=== PATIENT | female | born 1950 | race Caucasian/White ===

== ENCOUNTER 2025-01-27 17:23 | Emergency (ER) | payer MEDICARE, SELFPAY ==
--- OUTSIDE RECORDS SUMMARY | 2024-11-18 08:00 | XMS_ITS ---
Author Organization [facility] Address [address] [facility] [address] [place] [address] Care Team Providers Care Immunohematologist Name Role Phone CASSIA LENZ AUSTIN Primary Care Provider Unavailab anastasia Lio Zavaleta Unavailable [phone] Medications Medication SIG (Take, Route, Frequency, Duration) Notes Start Date End Date Status Valsartan 40 MG 1 tablet Orally once daily Active Albuterol Sulfate HFA 108 (90 Base) MCG/ACT 1 puff as needed Inhalation every 4 hrs Active amLODIPine Besylate 10 MG 1 tablet Orall y Once a day Active Sertraline HCl 100 MG 1 tablet Orally On ce a day Active Primidone 50 MG 1 tablet Orally thre e times a day Active Fluticasone Propionate 50 MCG/ACT 1 spray in each nostril Nasally Twice a day Active Metoprolol Tartrate 25 MG 0.5 tablet wit h food Orally Twice a day Active Vlgveopslgl-Abwytnaqe-Wvjpl t 200-62.5-25 MCG/ACT 1 puff Inhalation Once a day Active Ondansetron 4 MG 1 tablet on the tongue and allow to dissolve Orally Once a day As needed Active Omeprazole 20 MG 1 capsule 1/2 to 1 hour before morning meal Orally Once a day As needed Active Famotidine 40 MG 1 tablet Orally Once a day Active buPROPion HCl ER (SR) 150 MG 1 tablet in the morning Orally twice daily Active Atorvastatin Calcium 40 MG 1 tablet Oral ly Once a day Active Betamethasone Valerate 0.1 % 1 application Externally twice daily Active Aspirin 81 81 MG 1 tablet Orally Once a day Active Problems Problem Type SNOMED Code ICD Code Onset Dates Problem Status W/U Status Risk Notes Problem Chronic kidney disease stage 3B (disorder) (980950806) Chronic kidney disease, stage 3b (N18.32) Active confirmed Vital Signs Temperature 97.6 degrees Fahrenheit 11/19/19 25 Blood pressure systolic 137 mm Hg 11/19/19 25 Blood pressure diastolic 67 mm Hg 025 Heart Rate 63 /min 11/18/2024 Respiratory Rate 20 /min 11/18/2024 Height 64.5 in 11/18/2024 Weight 231.1 lbs 11/18/2024 BMI 39.05 kg/m2 11/18/2024 Oximetry 95 % 11/18/2024 Height-cm 163.83 cm 11/18/2024 Weight-kg 104.83 kg 11/18/2024 Encounters Encounter Location Date Provider Diagnosis [facility] [address] [place] [address] 11/18/2024 Lio Zavaleta Chronic kidney disease, stage 3b N18.32 Assessments Encounter Date Diagnosis (ICD Code) Assessment Notes Treatment Notes Treatment Clinical Notes Section Notes 11/18/2024 Chronic kidney disease, stage 3b (ICD-10 - N18.32) Plan Of Treatment Pending Test Test Name Order Date Hemoglobin 11/18/2024 Microalb/Creat Ratio, Randm Ur Renal Panel (10) 11/18/2024 Urinalysis 11/18/2024 Next Appt Details Follow Up: 6M, Reason: Provider Name:Lio godinez, 09/22/2025 12:00:00 PM, [address] [address], [place], [address], Progress Notes * LUIS HEARD BDOB:[birth year] (74 yo F)Acc No.[id number]:11/18/2024 progress note Patient: LUIS DUNBAR Provider: Era Zavaleta MD :1950 A ge:74 Y S ex:Female Date:11/18/2024 Address:[address] [place], [place] [id number] Pcp:AUSTIN ANTONY APRN Subjective: * Chief Complaints: * * Medical History: * Medications: T aking Albuterol Sulfate HFA 108 (90 Base) MCG/ACT Aerosol Solution 1 puff as needed Inhalation every 4 hrs , Taking amLODIPine Besylate 10 MG Tablet 1 tablet Orally Once a day , Taking Aspirin 81 81 MG Tablet Delayed Release 1 tablet Orally Once a day , Taking Atorvastatin Calcium 40 MG Tablet 1 tablet Orally Once a day , Taking Betamethasone Valerate 0.1 % Ointment 1 application Externally twice daily , Taking buPROPion HCl ER (SR) 150 MG Tablet Extended Release 12 Hour 1 tablet in the morning Orally twice daily , Taking Famotidine 40 MG Tablet 1 tablet Orally Once a day , Taking Fluticasone Propionate 50 MCG/ACT Suspension 1 spray in each nostril Nasally Twice a day , Taking Ryhkwpewasl-Zgfxbakqf-Ovoyrn 200-62.5-25 MCG/ACT Aerosol Powder Breath Activated 1 puff Inhalation Once a day , Taking Metoprolol Tartrate 25 MG Tablet 0.5 tablet with food Orally Twice a day , Taking Omeprazole 20 MG Capsule Delayed Release 1 capsule 1/2 to 1 hour before morning meal Orally Once a day As needed, Taking Ondansetron 4 MG Tablet Disintegrating 1 tablet on the tongue and allow to dissolve Orally Once a day As needed, Taking Primidone 50 MG Tablet 1 tablet Orally three times a day , Taking Sertraline HCl 100 MG Tablet 1 tablet Orally Once a day , Taking Valsartan 40 MG Tablet 1 tablet Orally once daily Objective: * Vitals: B P:137/67mm Hg, HR:63/min, RR:20/min, Temp:97.6F, Oxygen sat %:95%, Wt:231.1lbs, Wt-k.83 kg, Ht: 64.5 in, Ht-cm: 163.83 cm, BMI:39.05Index, Body Surface Area: 2.18. Assessment: * Assessment: 1. C hronic kidney disease, stage 3b - N18.32 Plan: * Treatment: * Follow Up: 6 M * Billing Information: * Visit Code: * Procedure Codes: * Electronic signature of Elise Zavaleta M.D. on 01/27/2025 at 06:23 PM EDT Sign off status: Pending * Provider: Era Zavaleta MD Date: 0 11/18/2024 Generated for Carmelo olson/Gissell/Magdalena on: 1 06:23 PM EDT
[2025-01-27] VITALS (19 sets, daily range): BP systolic 133–184; BP diastolic 54–79; PULSE 57–95; RESP 18; TEMP 36.6–37.2; O2SAT 96–100; BMI 39.1
--- NOTE | 2025-01-27 17:46 | [facility].EDGENADL ---
Discharge Plan Disposition Patient Disposition: Home, Self-Care Condition: Good Prescriptions Prescriptions: New hydrocodone-acetaminophen 5-325 mg tablet 1 tab PO Q8H PRN (Reason: pain (scale score 7-10)) Qty: 9 0RF ondansetron 4 mg tablet,disintegrating 4 mg PO Q6H PRN (Reason: nausea and vomiting) Qty: 10 0RF No Action albuterol sulfate 2.5 mg /3 mL (0.083 %) Solution For Nebulization 2.5 mg INHALATION QID acetaminophen 500 mg Tablet 500 mg PO Q6H PRN (Reason: Shortness Of Breath Or Wheezing) albuterol sulfate 200 mcg Capsule, W/Inhalation Device 90 mcg INHALATION DAILY atorvastatin 40 mg Tablet 40 mg PO DAILY betamethasone valerate 0.1 % Ointment 1 applic TOPICAL BID primidone 50 mg Tablet 50 mg PO HS bupropion HCl 150 mg Tablet Sustained-Release 12 Hr 150 mg PO BID ciprofloxacin 500 mg/5 mL Suspension,Microcapsule Recon 500 mg PO BID famotidine 40 mg Tablet 40 mg PO BID prednisone 20 mg Tablet 20 mg PO DAILY sertraline 100 mg Tablet 100 mg PO DAILY amlodipine 10 mg Tablet 10 mg PO DAILY omeprazole 20 mg Capsule,Delayed Release(Dr/Ec) 20 mg PO BID colestipol 1 gram Tablet 1 g PO BID valsartan 40 mg Tablet 40 mg PO BID metoprolol tartrate 25 mg Tablet 25 mg PO BID nitrofurantoin monohyd/m-cryst 100 mg Capsule 100 mg PO BID budesonide-formoterol 160-4.5 mcg/actuation Hfa Aerosol Inhaler 4.5 inh INHALATION DAILY cholecalciferol (vitamin D3) [Vitamin D3] 50 mcg (2,000 unit) Capsule 50 mcg PO DAILY Trelegy Ellipta 200-62.5-25 mcg Blister With Device 1 inh INHALATION DAILY Referrals Follow up/Referrals: Teddy Larsen DO [Staff Physician, Orthopedics] - See instructions Provider,Referral, MD [Primary Care Provider, Medical] - See instructions Activity Restrictions/Add. Instructions Additional Instructions/Restrictions: Please use your pain medication as needed for symptomatic relief. Please use your antinausea medicine as needed for symptomatic relief. Please follow-up with your orthopedic surgeon in the upcoming days/weeks. Please remain in the sling times until orthopedic follow-up, with the exception of showering/bathing. We will call you with the results of your elbow x-ray if actionable. No news is good news. Clinical Impressions Clinical Impression: Fall, Fracture of left clavicle Instructions Patient Instructions: DI for Clavicle Fracture in Adults, How to Prevent Falls Print Language Print Language: Czech Discharge ED Provider: Faraz Bridges General Adult HPI <FRANSISCO Bocanegra - Last Filed: 01/27/25 21:10> General Chief complaint: Fall Stated complaint: AO 01-27 Shoulder and left arm, fell Time Seen by Provider: 01/27/25 17:32 Mode of Arrival: Ambulatory Source of Information: Patient Description of Symptoms (Recalled from ER Triage Doc. by RN): Pt fell today @1500. C/o left arm/shoulder and rib pain. She has an existing radial head break in her left arm from previous fall around 5 weeks ago. History of Present Illness HPI narrative: 74-year-old female presents to the emergency department for a mechanical fall that occurred around 3 PM, patient states she was going to put her shoes on when she got her shoe stuck in her pant leg , caused her to fall on her left side, on outstretched arm, complains of pain in her shoulder, forearm/elbow region, does have ongoing known distal radius fracture that orthopedics has been following for last several weeks, patient admits to striking head, no LOC no presyncopal or syncopal event, no anticoagulant use, no fever no chills no overt chest pain or shortness of breath, does have left-sided chest wall pain, denies any abdominal pain nausea vomiting constipation diarrhea no urinary type symptomatology, patient is a former smoker, denies any alcohol or drug use, no neck pain, no mid back pain or lower back pain, no radicular type symptomatology, no numbness or tingling, no urinary bladder or bowel dysfunction, other past medical history consistent with hyperlipidemia, hypertension, GERD, MDD/LOI, previous TIA/CVA. Initial triage vitals are unremarkable. Of note, patient's family ember at the bedside states that the patient was on the floor/found down for around 30 minutes to an hour. Please note that above description of symptoms, in this electronic medical record under categorization of recalled from ER triage doctor by RN are reflective of an initial nursing assessment, however, is not reflective of my full history and physical exam that was personally taken and clarified. Consequentially, this preceding description of symptoms, which may include the patient's categorized chief complaint in the EMR, do not reflect my personal clinical impression, and the ultimate description of history of present illness and patient stated complaints should be deferred to this section of the note. Unless stated otherwise or congruent with this section of the note, additional signs, symptoms, or incongruence should be interpreted as inaccurate with my clinical impression. Onset (ago): hour(s) Related Data Home Medications ?Medication ?Instructions ?Recorded ?Confirmed acetaminophen 500 mg tablet 500 mg PO Q6H PRN Shortness Of 01/27/25 01/27/25 Breath Or Wheezing albuterol sulfate 2.5 mg/3 mL 2.5 mg inhalation QID 01/27/25 01/27/25 (0.083 %) solution for nebulization albuterol sulfate 200 mcg capsule 90 mcg inhalation DAILY 01/27/25 01/27/25 with inhalation device amlodipine 10 mg tablet 10 mg PO DAILY 01/27/25 01/27/25 atorvastatin 40 mg tablet 40 mg PO DAILY 01/27/25 01/27/25 betamethasone valerate 0.1 % 1 applic topical BID 01/27/25 01/27/25 topical ointment budesonide-formoterol HFA 160 4.5 inh inhalation DAILY 01/27/25 01/27/25 mcg-4.5 mcg/actuation aerosol inhaler bupropion HCl 150 mg tablet,12 hr 150 mg PO BID 01/27/25 01/27/25 sustained-release cholecalciferol (vitamin D3) 50 50 mcg PO DAILY 01/27/25 01/27/25 mcg (2,000 unit) capsule (Vitamin D3) ciprofloxacin 500 mg/5 mL oral 500 mg PO BID 01/27/25 01/27/25 suspension colestipol 1 gram tablet 1 g PO BID 01/27/25 01/27/25 famotidine 40 mg tablet 40 mg PO BID 01/27/25 01/27/25 fluticasone fur. 200 mcg-umeclid 1 inh inhalation DAILY 01/27/25 01/27/25 62.5 mcg-vilant 25 mcg inhalat.powder (Trelegy Ellipta) metoprolol tartrate 25 mg tablet 25 mg PO BID 01/27/25 01/27/25 nitrofurantoin 100 mg PO BID 01/27/25 01/27/25 monohydrate/macrocrystals 100 mg capsule omeprazole 20 mg capsule,delayed 20 mg PO BID 01/27/25 01/27/25 release prednisone 20 mg tablet 20 mg PO DAILY 01/27/25 01/27/25 primidone 50 mg tablet 50 mg PO HS 01/27/25 01/27/25 sertraline 100 mg tablet 100 mg PO DAILY 01/27/25 01/27/25 valsartan 40 mg tablet 40 mg PO BID 01/27/25 01/27/25 Previous Rx's ?Medication ?Instructions ?Recorded hydrocodone 5 mg-acetaminophen 325 1 tab PO Q8H PRN pain (scale score 01/27/25 mg tablet 7-10) #9 tabs ondansetron 4 mg disintegrating 4 mg PO Q6H PRN nausea and 01/27/25 tablet vomiting #10 tabs Allergies Allergy/AdvReac Type Severity Reaction Status Date / Time No Known Allergies Allergy Verified 01/27/25 17:43 [facility] <FRANSISCO Bocanegra - Last Filed: 01/27/25 21:10> [facility] Disclaimer: The information contained in this section may have been updated after the patient was seen, as this information can be updated by other users. Medical History (Updated 01/27/25 @ 21:05 by FRANSISCO Bocanegra) COPD (chronic obstructive pulmonary disease) Asthma History of stroke Hypertension Social History (Updated 01/27/25 @ 21:10 by FRANSISCO Bocanegra) Smoking Status: Former smoker alcohol intake: never current occupational status: other Travel in the last 8 weeks?: None Have you lived/traveled outside [place] in past 30 days?: No Contact w/someone who lives/traveled outside [place] past 30 days?: No Exposure to someone with infectious disease in past 14 days?: No Do you have a fever (greater than 100.4 F or 38 C)?: No Have you tested positive for COVID-19?: No Exposed to someone with COVID-19 in past 14 days?: No Do you have a sore throat?: No Do you have a cough?: No Do you have any weakness?: No Do you have any diarrhea?: No Are you experiencing any unusual bleeding?: No Do you have any muscle aches/pain?: No Do you have any abdominal pain?: No Are you experiencing loss of taste or smell?: No <FRANSISCO Bocanegra - Last Filed: 01/27/25 21:10> ROS Obtained: Yes All systems reviewed & no additional complaints except as documented Physical Exam <FRANSISCO Bocanegra - Last Filed: 01/27/25 21:10> General General appearance: alert and in no apparent distress Head Head exam: atraumatic and normocephalic Eye Eye exam: Present PERRL and EOMI ENT ENT exam: Present mucous membranes moist Neck Neck exam: Present normal inspection; Absent tenderness Chest Chest inspection: Present normal inspection, symmetric chest wall rise, tenderness and other (Mild chest wall tenderness over the left chest wall) Respiratory Respiratory exam: Present normal lung sounds bilaterally; Absent respiratory distress, wheezes or stridor Cardiovascular Cardiovascular exam: Present regular rate and normal rhythm Abdominal Exam Abdominal exam: Present soft; Absent tenderness, guarding, rebound or rigidity Extremities Exam Extremities exam: Present normal inspection, tenderness and other (Pain to palpation limited range of motion to the left shoulder region, no obvious open fracture or dislocation, otherwise neurovasc intact, pain over the humeral head region, elbow region as well as forearm region,); Absent full ROM Neurological Exam Neurological exam: Present alert and oriented X3 Psychiatric Psychiatric exam: Present normal affect Skin Skin exam: Present warm and dry Medical Decision Making <FRANSISCO Bocanegra - Last Filed: 01/27/25 21:10> Medical Records Medical records reviewed: Yes I reviewed the patient's medical records. Screening: Per USPSTF and CDC recommendations, given the prevalence of disease in our region, it is our hospital?s policy to screen for HIV and viral Hepatitis for all patients aged 18 and over and those with ongoing risk factors. Dada Inquiry Pt receiving controlled substance: No Dada was queried for this patient: No Vital Signs: 01/27/25 17:38 01/27/25 17:48 01/27/25 18:01 Temperature 98.9 F Temperature Source Temporal Artery Scan Pulse Rate 62 57 L Pulse Rate [Right] 65 Respiratory Rate 18 Blood Pressure 175/79 H 166/58 H Blood Pressure [Right Arm] 184/71 H Blood Pressure Mean Blood Pressure Mean [Right Arm] 108 Blood Pressure Source [Right Arm] Automatic Cuff Blood Pressure Position [Right Arm] Sitting 02 Sat by Pulse Oximetry 100 96 98 Oxygen Delivery Method Room Air Room Air Room Air 01/27/25 18:42 01/27/25 18:44 01/27/25 19:04 Temperature Temperature Source Pulse Rate 61 57 L Pulse Rate [Right] Respiratory Rate Blood Pressure 157/79 H Blood Pressure [Right Arm] Blood Pressure Mean Blood Pressure Mean [Right Arm] Blood Pressure Source [Right Arm] Blood Pressure Position [Right Arm] 02 Sat by Pulse Oximetry 98 99 97 Oxygen Delivery Method Room Air Room Air 01/27/25 19:07 01/27/25 19:07 01/27/25 19:15 Temperature Temperature Source Pulse Rate 61 59 L Pulse Rate [Right] Respiratory Rate Blood Pressure 161/68 H Blood Pressure [Right Arm] Blood Pressure Mean 77 Blood Pressure Mean [Right Arm] Blood Pressure Source [Right Arm] Blood Pressure Position [Right Arm] 02 Sat by Pulse Oximetry 98 98 Oxygen Delivery Method 01/27/25 19:30 01/27/25 19:31 01/27/25 19:31 Temperature Temperature Source Pulse Rate 57 L 58 L Pulse Rate [Right] Respiratory Rate Blood Pressure 142/59 H Blood Pressure [Right Arm] Blood Pressure Mean 86 Blood Pressure Mean [Right Arm] Blood Pressure Source [Right Arm] Blood Pressure Position [Right Arm] 02 Sat by Pulse Oximetry 97 97 Oxygen Delivery Method 01/27/25 19:45 01/27/25 20:00 01/27/25 20:01 Temperature Temperature Source Pulse Rate 59 L 64 Pulse Rate [Right] Respiratory Rate Blood Pressure 158/68 H Blood Pressure [Right Arm] Blood Pressure Mean 80 Blood Pressure Mean [Right Arm] Blood Pressure Source [Right Arm] Blood Pressure Position [Right Arm] 02 Sat by Pulse Oximetry 98 97 Oxygen Delivery Method 01/27/25 20:01 01/27/25 20:15 01/27/25 20:30 Temperature Temperature Source Pulse Rate 63 60 95 H Pulse Rate [Right] Respiratory Rate Blood Pressure Blood Pressure [Right Arm] Blood Pressure Mean Blood Pressure Mean [Right Arm] Blood Pressure Source [Right Arm] Blood Pressure Position [Right Arm] 02 Sat by Pulse Oximetry 98 97 Oxygen Delivery Method 01/27/25 20:31 Temperature Temperature Source Pulse Rate Pulse Rate [Right] Respiratory Rate Blood Pressure 146/66 H Blood Pressure [Right Arm] Blood Pressure Mean 92 Blood Pressure Mean [Right Arm] Blood Pressure Source [Right Arm] Blood Pressure Position [Right Arm] 02 Sat by Pulse Oximetry Oxygen Delivery Method Lab Data Lab results reviewed: Yes I reviewed the patient's lab results. Lab Results 01/27/25 18:40: WBC 5.0, RBC 3.41 L, Hgb 10.6 L, Hct 33.1 L, MCV 97.1, MCH 31.1, MCHC 32.0, RDW 13.3, Plt Count 132 L, MPV 10.4, Neut % (Auto) 73.0, Lymph % (Auto) 13.4, Baker % (Auto) 9.6 H, Eos % (Auto) 3.0, Baso % (Auto) 0.4, Neut # (Auto) 3.6, Lymph # (Auto) 0.7, Baker # (Auto) 0.5, Eos # (Auto) 0.2, Baso # (Auto) 0.0, Sodium 140, Potassium 4.6, Chloride 106, Carbon Dioxide 26, Anion Gap 12.6, BUN 23 H, Creatinine 1.40 H, Estimated Creat Clear 58, Estimated GFR 37 L, Est GFR ( Amer) 44 L, Glucose 112 H, Calcium 8.8, Total Bilirubin 0.6, AST 25, ALT 17, Alkaline Phosphatase 125, Total Creatine Kinase 53, Total Protein 6.7, Albumin 4.1, Globulin 2.6, Albumin/Globulin Ratio 1.6 01/27/25 18:40 01/27/25 18:40 Orders (Tests/Meds): ED MEDICATIONS Discontinued Medications Generic Name Dose Route Start Last Admin Trade Name Rajinderq PRN Reason Stop Dose Admin Acetaminophen 1,000 mg 01/27/25 18:02 01/27/25 18:46 Acetaminophen 1,000mg/100ml Vial IV 01/27/25 18:03 Not Given ONCE ONE Hydrocodone Bitart/Acetaminophen 1 tab 01/27/25 21:02 01/27/25 21:09 Apap/Hydrocodone 325mg/7.5mg Tab PO 01/27/25 21:03 1 tab ONCE ONE Administration Morphine Sulfate 2 mg 01/27/25 19:09 01/27/25 19:17 Morphine 2mg/Ml Syringe IV 01/27/25 19:10 2 mg ONCE ONE Administration Ondansetron HCl 4 mg 01/27/25 19:02 01/27/25 19:16 Ondansetron 4mg/2ml Vial IV 01/27/25 19:03 4 mg ONCE ONE Administration ORDERS Category Date Time Status CT cervical spine wo con Stat Cat Scan 01/27/25 17:[address] chest wo con Stat Cat Scan 01/27/25 17:[address] head/brain wo con Stat Cat Scan 01/27/25 17:58 Completed XR chest portable Stat Exams 01/27/25 17:55 Completed XR elbow LT 2V Stat Exams 01/27/25 18:00 Taken XR forearm LT 2V Stat Exams 01/27/25 18:00 Completed XR humerus LT Stat Exams 01/27/25 17:59 Completed XR shoulder LT min 2V Stat Exams 01/27/25 17:59 Completed XR wrist LT min 3V Stat Exams 01/27/25 18:01 Completed CK [Creatine Kinase] Stat Lab 01/27/25 18:40 Completed Complete Blood Count Auto Diff Stat Lab 01/27/25 18:40 Completed Comprehensive Metabolic Panel Stat Lab 01/27/25 18:40 Completed Medical Decision Narrative: 74-year-old female presents to the emergency department for mechanical fall, complaint of left-sided upper extremity pain and left-sided chest wall pain, differential diagnose include but not limited to humeral head fracture, anterior shoulder dislocation, shoulder impingement syndrome, elbow fracture, elbow sprain/strain, other arm sprain/strain, acute SDH, traumatic SAH, cervicalgia, cervical spine fracture, cardiac arrhythmia, electrolyte disturbance, forearm fracture, arm sprain/strain among others. I discussed this patient's case with attending Dr. Bridges Will obtain basic laboratory studies, creatinine kinase level, EKG, CT cervical spine without contrast, CT chest without contrast, CT head without contrast, chest x-ray, elbow x-ray, forearm x-ray humerus x-ray shoulder x-ray and wrist x-ray on the left, will give IV acetaminophen at 1000 mg. Attempted to give 1 g IV Tylenol, patient notified nursing staff that she did take 1 g of p.o. Tylenol prior to arrival, will hold off at this time. CBC is notable for erythrocyte opinion at 3.4, hemoglobin is 10.6 hematocrit 33.1 thrombocytopenia at 132, unsure of chronicity. Patient complaining of some pain, will give 2 mg IV morphine l and 4 mg IV Zofran to start as patient tells me that she gets quite sick with narcotics . CMP is notable for elevated BUN at 23 elevated creatinine 1.4, CK level within normal limits, otherwise unremarkable I reviewed the patient's left shoulder x-ray along the corresponding radiologic report, there is an acute nondisplaced fracture involving the distal clavicle, will place patient in a sling. I reviewed the patient's left humerus x-ray along the corresponding radiologic report, acute fracture of the distal clavicle more optimally described on the associated shoulder radiograph from the same day time please reference report for additional information. I reviewed the patient's left forearm x-ray along the corresponding radiologic report, no acute posttraumatic osseous injury. I reviewed the patient's CT head without contrast, CT cervical with and without contrast on the corresponding radiologic reports, there is no acute osseous findings in the patient's C-spine, no acute intracranial findings on CT head without contrast. I reviewed the patient's chest x-ray along the corresponding radiologic report, negative for acute cardiopulmonary abnormality, acute nondisplaced fracture of the distal left clavicle I reviewed the patient's left wrist x-ray along the corresponding radiologic report, no acute posttraumatic osseous injury. I reviewed the patient's CT chest without contrast on the corresponding radiologic report, acute mildly comminuted displaced fracture of the distal left clavicle as described minor concavity to the T10 vertebral body which is age-indeterminate correlate clinically, cannot entirely exclude acute process, evidence of prior granulomatous disease minor apical emphysema. I discussed all results with the patient family bedside, will give patient 7.5 mg p.o. Bowie for symptomatic relief here in the emergency department prior to discharge. Discussed that elbow radiograph report from radiology is not yet fully completed, I along with the attending physician reviewed the patient's plain film elbow x-ray, showed no acute pathology, patient would like to be discharged home to self-care, shared decision making was utilized, we will not wait on the full radiology report will call patient with any actionable results. Will send patient home with p.o. analgesia per attending physician. Patient was given strict ED return precautions and will follow-up with orthopedic physician in the upcoming days. Patient family once again voiced understanding and are in agreement with the current treatment plan/discharge plan. <Faraz Bridges MD - Last Filed: 01/27/25 21:27> Vital Signs: 01/27/25 17:38 01/27/25 17:48 01/27/25 18:01 Temperature 98.9 F Temperature Source Temporal Artery Scan Pulse Rate 62 57 L Pulse Rate [Right] 65 Respiratory Rate 18 Blood Pressure 175/79 H 166/58 H Blood Pressure [Right Arm] 184/71 H Blood Pressure Mean Blood Pressure Mean [Right Arm] 108 Blood Pressure Source [Right Arm] Automatic Cuff Blood Pressure Position [Right Arm] Sitting 02 Sat by Pulse Oximetry 100 96 98 Oxygen Delivery Method Room Air Room Air Room Air 01/27/25 18:42 01/27/25 18:44 01/27/25 19:04 Temperature Temperature Source Pulse Rate 61 57 L Pulse Rate [Right] Respiratory Rate Blood Pressure 157/79 H Blood Pressure [Right Arm] Blood Pressure Mean Blood Pressure Mean [Right Arm] Blood Pressure Source [Right Arm] Blood Pressure Position [Right Arm] 02 Sat by Pulse Oximetry 98 99 97 Oxygen Delivery Method Room Air Room Air 01/27/25 19:07 01/27/25 19:07 01/27/25 19:15 Temperature Temperature Source Pulse Rate 61 59 L Pulse Rate [Right] Respiratory Rate Blood Pressure 161/68 H Blood Pressure [Right Arm] Blood Pressure Mean 77 Blood Pressure Mean [Right Arm] Blood Pressure Source [Right Arm] Blood Pressure Position [Right Arm] 02 Sat by Pulse Oximetry 98 98 Oxygen Delivery Method 01/27/25 19:30 01/27/25 19:31 01/27/25 19:31 Temperature Temperature Source Pulse Rate 57 L 58 L Pulse Rate [Right] Respiratory Rate Blood Pressure 142/59 H Blood Pressure [Right Arm] Blood Pressure Mean 86 Blood Pressure Mean [Right Arm] Blood Pressure Source [Right Arm] Blood Pressure Position [Right Arm] 02 Sat by Pulse Oximetry 97 97 Oxygen Delivery Method 01/27/25 19:45 01/27/25 20:00 01/27/25 20:01 Temperature Temperature Source Pulse Rate 59 L 64 Pulse Rate [Right] Respiratory Rate Blood Pressure 158/68 H Blood Pressure [Right Arm] Blood Pressure Mean 80 Blood Pressure Mean [Right Arm] Blood Pressure Source [Right Arm] Blood Pressure Position [Right Arm] 02 Sat by Pulse Oximetry 98 97 Oxygen Delivery Method 01/27/25 20:01 01/27/25 20:15 01/27/25 20:30 Temperature Temperature Source Pulse Rate 63 60 95 H Pulse Rate [Right] Respiratory Rate Blood Pressure Blood Pressure [Right Arm] Blood Pressure Mean Blood Pressure Mean [Right Arm] Blood Pressure Source [Right Arm] Blood Pressure Position [Right Arm] 02 Sat by Pulse Oximetry 98 97 Oxygen Delivery Method 01/27/25 20:31 Temperature Temperature Source Pulse Rate Pulse Rate [Right] Respiratory Rate Blood Pressure 146/66 H Blood Pressure [Right Arm] Blood Pressure Mean 92 Blood Pressure Mean [Right Arm] Blood Pressure Source [Right Arm] Blood Pressure Position [Right Arm] 02 Sat by Pulse Oximetry Oxygen Delivery Method Lab Data Lab Results 01/27/25 18:40: WBC 5.0, RBC 3.41 L, Hgb 10.6 L, Hct 33.1 L, MCV 97.1, MCH 31.1, MCHC 32.0, RDW 13.3, Plt Count 132 L, MPV 10.4, Neut % (Auto) 73.0, Lymph % (Auto) 13.4, Baker % (Auto) 9.6 H, Eos % (Auto) 3.0, Baso % (Auto) 0.4, Neut # (Auto) 3.6, Lymph # (Auto) 0.7, Baker # (Auto) 0.5, Eos # (Auto) 0.2, Baso # (Auto) 0.0, Sodium 140, Potassium 4.6, Chloride 106, Carbon Dioxide 26, Anion Gap 12.6, BUN 23 H, Creatinine 1.40 H, Estimated Creat Clear 58, Estimated GFR 37 L, Est GFR ( Amer) 44 L, Glucose 112 H, Calcium 8.8, Total Bilirubin 0.6, AST 25, ALT 17, Alkaline Phosphatase 125, Total Creatine Kinase 53, Total Protein 6.7, Albumin 4.1, Globulin 2.6, Albumin/Globulin Ratio 1.6 Orders (Tests/Meds): ED MEDICATIONS Discontinued Medications Generic Name Dose Route Start Last Admin Trade Name Freq PRN Reason Stop Dose Admin Acetaminophen 1,000 mg 01/27/25 18:02 01/27/25 18:46 Acetaminophen 1,000mg/100ml Vial IV 01/27/25 18:03 Not Given ONCE ONE Hydrocodone Bitart/Acetaminophen 1 tab 01/27/25 21:02 01/27/25 21:09 Apap/Hydrocodone 325mg/7.5mg Tab PO 01/27/25 21:03 1 tab ONCE ONE Administration Morphine Sulfate 2 mg 10/21/25 19:09 01/27/25 19:17 Morphine 2mg/Ml Syringe IV 01/27/25 19:10 2 mg ONCE ONE Administration Ondansetron HCl 4 mg 01/27/25 19:02 01/27/25 19:16 Ondansetron 4mg/2ml Vial IV 01/27/25 19:03 4 mg ONCE ONE Administration ORDERS Category Date Time Status CT cervical spine wo con Stat Cat Scan 01/27/25 17:[address] chest wo con Stat Cat Scan 01/27/25 17:[address] head/brain wo con Stat Cat Scan 01/27/25 17:58 Completed XR chest portable Stat Exams 01/27/25 17:55 Completed XR elbow LT 2V Stat Exams 01/27/25 18:00 Taken XR forearm LT 2V Stat Exams 01/27/25 18:00 Completed XR humerus LT Stat Exams 01/27/25 17:59 Completed XR shoulder LT min 2V Stat Exams 01/27/25 17:59 Completed XR wrist LT min 3V Stat Exams 01/27/25 18:01 Completed CK [Creatine Kinase] Stat Lab 01/27/25 18:40 Completed Complete Blood Count Auto Diff Stat Lab 01/27/25 18:40 Completed Comprehensive Metabolic Panel Stat Lab 01/27/25 18:40 Completed ECG Data Tracing #1: Independently interpreted by me rate 70, rhythm is regular, axis is normal, no ST elevation in anatomical contiguous leads, QTc 435 Medical Decision Narrative: 74-year-old female presents to the emergency department for mechanical fall, complaint of left-sided upper extremity pain and left-sided chest wall pain, differential diagnose include but not limited to humeral head fracture, anterior shoulder dislocation, shoulder impingement syndrome, elbow fracture, elbow sprain/strain, other arm sprain/strain, acute SDH, traumatic SAH, cervicalgia, cervical spine fracture, cardiac arrhythmia, electrolyte disturbance, forearm fracture, arm sprain/strain among others. I discussed this patient's case with attending Dr. Bridges Will obtain basic laboratory studies, creatinine kinase level, EKG, CT cervical spine without contrast, CT chest without contrast, CT head without contrast, chest x-ray, elbow x-ray, forearm x-ray humerus x-ray shoulder x-ray and wrist x-ray on the left, will give IV acetaminophen at 1000 mg. Attempted to give 1 g IV Tylenol, patient notified nursing staff that she did take 1 g of p.o. Tylenol prior to arrival, will hold off at this time. CBC is notable for erythrocyte opinion at 3.4, hemoglobin is 10.6 hematocrit 33.1 thrombocytopenia at 132, unsure of chronicity. Patient complaining of some pain, will give 2 mg IV morphine l and 4 mg IV Zofran to start as patient tells me that she gets quite sick with narcotics . CMP is notable for elevated BUN at 23 elevated creatinine 1.4, CK level within normal limits, otherwise unremarkable I reviewed the patient's left shoulder x-ray along the corresponding radiologic report, there is an acute nondisplaced fracture involving the distal clavicle, will place patient in a sling. I reviewed the patient's left humerus x-ray along the corresponding radiologic report, acute fracture of the distal clavicle more optimally described on the associated shoulder radiograph from the same day time please reference report for additional information. I reviewed the patient's left forearm x-ray along the corresponding radiologic report, no acute posttraumatic osseous injury. I reviewed the patient's CT head without contrast, CT cervical with and without contrast on the corresponding radiologic reports, there is no acute osseous findings in the patient's C-spine, no acute intracranial findings on CT head without contrast. I reviewed the patient's chest x-ray along the corresponding radiologic report, negative for acute cardiopulmonary abnormality, acute nondisplaced fracture of the distal left clavicle I reviewed the patient's left wrist x-ray along the corresponding radiologic report, no acute posttraumatic osseous injury. I reviewed the patient's CT chest without contrast on the corresponding radiologic report, acute mildly comminuted displaced fracture of the distal left clavicle as described minor concavity to the T10 vertebral body which is age-indeterminate correlate clinically, cannot entirely exclude acute process, evidence of prior granulomatous disease minor apical emphysema. I discussed all results with the patient family bedside, will give patient 7.5 mg p.o. Bowie for symptomatic relief here in the emergency department prior to discharge. Discussed that elbow radiograph report from radiology is not yet fully completed, I along with the attending physician reviewed the patient's plain film elbow x-ray, showed no acute pathology, patient would like to be discharged home to self-care, shared decision making was utilized, we will not wait on the full radiology report will call patient with any actionable results. Will send patient home with p.o. analgesia per attending physician. Patient was given strict ED return precautions and will follow-up with orthopedic physician in the upcoming days. Patient family once again voiced understanding and are in agreement with the current treatment plan/discharge plan. Faraz Bridges MD: I was consulted by the ANNIE, and we discussed the complexity of the problems being addressed. I approved the treatment and management plan for this patient's care in the emergency department, thus performing a substantive portion of the medical decision making. Critical Care <FRANSISCO Bocanegra - Last Filed: 01/27/25 21:10> Critical Care Time Critical Care Time: No
--- NOTE | 2025-01-27 17:55 | XR_ITS ---
PROCEDURE INFORMATION: Exam: XR Chest Exam date and time: 01/27/2025 6:20 PM Age: 74 years old Clinical indication: Injury or trauma; Fall; Blunt trauma (contusions or hematomas); Additional info: Left-sided chest wall pain after fall TECHNIQUE: Imaging protocol: Radiologic exam of the chest. Views: 1 view. COMPARISON: CT CHEST WO CON 01/27/2025 6:20 PM FINDINGS: Lungs: There are punctate pulmonary parenchymal calcifications consistent with remote granulomatous organism exposure. The lungs appear otherwise clear. No focal areas of consolidation. Pleural spaces: No pleural effusions. Negative for pneumothorax. Heart/Mediastinum: Cardiac silhouette and pulmonary vasculature are within range of normal. Bones/joints: There is an acute fracture of the distal left clavicle without significant displacement. No additional acute fractures are seen. IMPRESSION: 1. Negative for an acute cardiopulmonary abnormality. 2. Acute nondisplaced fracture of the distal left clavicle.
--- NOTE | 2025-01-27 17:58 | CT_ITS ---
PROCEDURE INFORMATION: Exam: CT Head Without Contrast Exam date and time: 01/27/2025 6:17 PM Age: 74 years old Clinical indication: Injury or trauma; Fall; Blunt trauma (contusions or hematomas); Additional info: Fall, head trauma TECHNIQUE: Imaging protocol: Computed tomography of the head without contrast. Radiation optimization: All CT scans at this facility use at least one of these dose optimization techniques: automated exposure control; mA and/or kV adjustment per patient size (includes targeted exams where dose is matched to clinical indication); or iterative reconstruction. COMPARISON: No relevant prior studies available. FINDINGS: Brain: No acute intracranial hemorrhage, midline shift, or mass effect. Right occipital lobe encephalomalacia. Mild hypodensities within the cerebral white matter most consistent with chronic small-vessel ischemic changes. Cerebral ventricles: No ventriculomegaly. Paranasal sinuses: Visualized sinuses are unremarkable. No fluid levels. Mastoid air cells: Visualized mastoid air cells are well aerated. Bones: Unremarkable. No acute fracture. Soft tissues: Unremarkable. IMPRESSION: No acute intracranial findings. PROCEDURE INFORMATION: Exam: CT Cervical Spine Without Contrast Exam date and time: 01/27/2025 6:17 PM Age: 74 years old Clinical indication: Injury or trauma; Fall; Blunt trauma (contusions or hematomas); Additional info: Fall, head trauma TECHNIQUE: Imaging protocol: Computed tomography of the cervical spine without contrast. Radiation optimization: All CT scans at this facility use at least one of these dose optimization techniques: automated exposure control; mA and/or kV adjustment per patient size (includes targeted exams where dose is matched to clinical indication); or iterative reconstruction. COMPARISON: CT HEAD/BRAIN WO CON 01/27/2025 6:17 PM FINDINGS: Bones: Cervical vertebrae normal in height. No acute fracture. Left lateral tilt. Reversal of normal cervical lordosis. Minimal anterolisthesis C7 on T1 and T2 on T3. Maintained craniocervical junction. Multilevel degenerative changes. Varying degrees of neural foraminal narrowing. No severe spinal canal stenosis. Lungs: 4 mm left apical calcified granuloma. Vasculature: Bilateral carotid artery calcifications. Soft tissues: Unremarkable. IMPRESSION: No acute osseous findings.
--- NOTE | 2025-01-27 17:59 | CT_ITS ---
PROCEDURE INFORMATION: Exam: CT Chest Without Contrast; Diagnostic Exam date and time: 01/27/2025 6:20 PM Age: 74 years old Clinical indication: Injury or trauma; Fall; Blunt trauma (contusions or hematomas); Additional info: Fall left-sided chest wall pain TECHNIQUE: Imaging protocol: Diagnostic computed tomography of the chest without contrast. Radiation optimization: All CT scans at this facility use at least one of these dose optimization techniques: automated exposure control; mA and/or kV adjustment per patient size (includes targeted exams where dose is matched to clinical indication); or iterative reconstruction. COMPARISON: CR XR CHEST PORTABLE 01/27/2025 6:20 PM FINDINGS: Thyroid: There is a small focus of low attenuation in the right thyroid which is nonspecific too small to adequately characterize. Lungs: Flattening of the hemidiaphragms and increase in the AP diameter of the chest suggest COPD. There are punctate pulmonary parenchymal calcifications consistent with remote granulomatous organism exposure. No focal areas of consolidation. There is minor apical emphysema. Pleural spaces: There are no pleural effusions. Heart: The heart is not enlarged. There is a trace amount of pericardial fluid. Lymph nodes: There is no evidence of pathologic adenopathy. Calcified hilar and mediastinal lymph nodes indicate prior granulomatous disease. Vasculature: The aorta demonstrates mild atherosclerotic calcification. There is no evidence of an aortic aneurysm. Stomach: The remainder of the visualized intra-abdominal structures are normal. Bones/joints: There is an acute minimally comminuted fracture involving the distal left clavicle which is located approximately 2 cm proximal to the AC joint. The fracture does not appear to extend into the AC joint. There is no significant displacement. [id number] degenerative changes around the right sternoclavicular joint. The thoracic spine demonstrates mild degenerative changes at multiple levels. The visualized lower cervical spine demonstrates mild discogenic and spondylitic degenerative changes. There is minor concavity to the T10 vertebral body which is age indeterminate. Correlate clinically. Can not entirely exclude acute process. Soft tissues: There is mild associated perifractural edema involving the distal left clavicle. Other findings: Evaluation is limited by the lack of intravenous contrast. IMPRESSION: 1. Acute mildly comminuted nondisplaced fracture of the distal left clavicle as described. 2. Minor concavity to the T10 vertebral body which is age indeterminate. Correlate clinically. Can not entirely exclude acute process. 3. Evidence of prior granulomatous disease. 4. Minor apical emphysema. The presence of pulmonary emphysema on CT is an independent risk factor for lung cancer. In the absence of a history or active diagnosis of lung cancer, it is recommended that this patient with emphysema be evaluated for enrollment in a low dose CT lung cancer screening program.
--- NOTE | 2025-01-27 17:59 | XR_ITS ---
PROCEDURE INFORMATION: Exam: XR Left Shoulder Exam date and time: 01/27/2025 6:20 PM Age: 74 years old Clinical indication: Injury or trauma; Fall; Blunt trauma (contusions or hematomas); Shoulder; Left; Additional info: Fall left shoulder pain TECHNIQUE: Imaging protocol: Radiologic exam of the left shoulder. Views: 2 or more views. COMPARISON: CR XR HUMERUS LT 01/27/2025 6:20 PM FINDINGS: Bones/joints: There is acute fracture involving the distal clavicle which appears not significantly displaced. The fracture is located approximately 2.4 cm proximal to the AC joint. The coracoclavicular joint appears preserved. The AC joint appears intact. Soft tissues: No significant soft tissue edema. No subcutaneous emphysema or radiopaque foreign bodies. No pneumothorax. A granuloma is present in the visualized left lung. IMPRESSION: Acute nondisplaced fracture involving the distal clavicle.
--- NOTE | 2025-01-27 17:59 | XR_ITS ---
PROCEDURE INFORMATION: Exam: XR Left Humerus Exam date and time: 01/27/2025 6:20 PM Age: 74 years old Clinical indication: Injury or trauma; Fall; Blunt trauma (contusions or hematomas); Arm, upper; Left; Additional info: Fall left arm pain TECHNIQUE: Imaging protocol: Radiologic exam of the left humerus. Views: 2 or more views. COMPARISON: CR XR SHOULDER LT MIN 2V 01/27/2025 6:20 PM FINDINGS: Bones/joints: Acute fracture of the distal clavicle is more optimally described on the associated shoulder radiograph from the same date and time. Please reference that report for additional information. No additional acute fractures are seen. Soft tissues: No significant soft tissue edema. No subcutaneous emphysema or radiopaque foreign bodies. IMPRESSION: Acute fracture of the distal clavicle, more optimally described on the associated shoulder radiograph from the same date and time. Please reference that report for additional information.
--- NOTE | 2025-01-27 18:00 | XR_ITS ---
PROCEDURE INFORMATION: Exam: XR Left Elbow Trauma Exam date and time: 01/27/2025 6:20 PM Age: 74 years old Clinical indication: Injury or trauma; Fall; Blunt trauma (contusions or hematomas); Elbow; Left; Additional info: Fall left elbow pain TECHNIQUE: Imaging protocol: Radiologic exam of the left elbow. Views: 1 or 2 views, Trauma COMPARISON: CR XR FOREARM LT 2V 01/27/2025 6:20 PM FINDINGS: Bones/joints: Radial head not well visualized on lateral images. No acute fracture. No dislocation. Soft tissues: Normal. No abnormal calcifications. IMPRESSION: No acute findings.
--- NOTE | 2025-01-27 18:00 | XR_ITS ---
PROCEDURE INFORMATION: Exam: XR Left Forearm Exam date and time: 01/27/2025 6:20 PM Age: 74 years old Clinical indication: Injury or trauma; Fall; Blunt trauma (contusions or hematomas); Arm, lower; Left; Additional info: Fall, known distal radial fracture TECHNIQUE: Imaging protocol: Radiologic exam of the left forearm. Views: 2 views. COMPARISON: CR XR WRIST LT MIN 3V 01/27/2025 6:20 PM FINDINGS: Bones/joints: Patient is status post ORIF of the distal radius with a sideplate and multiple screws securing the distal radius. There is no evidence of acute fracture or dislocation. Joint spaces appear preserved. There is mild diffuse osteopenia. Soft tissues: No significant soft tissue edema. No subcutaneous emphysema or radiopaque foreign bodies. IMPRESSION: No acute posttraumatic osseous injury.
--- NOTE | 2025-01-27 18:01 | XR_ITS ---
PROCEDURE INFORMATION: Exam: XR Left Wrist Exam date and time: 01/27/2025 6:20 PM Age: 74 years old Clinical indication: Injury or trauma; Other: Foosh injury TECHNIQUE: Imaging protocol: Radiologic exam of the left wrist. Views: 3 or more views. COMPARISON: CR XR FOREARM LT 2V 01/27/2025 6:20 PM FINDINGS: Bones/joints: Patient is status post ORIF of the distal radius which shows near anatomic alignment with sideplate and multiple screws present. There is no evidence of acute fracture or dislocation. Mild to moderate osteoarthritic degenerative changes involve the 1st carpometacarpal joint . Mild degenerative changes involving the intercarpal joints and the radiocarpal joint. There is mild diffuse osteopenia. Soft tissues: No significant soft tissue edema. No subcutaneous emphysema or radiopaque foreign bodies. IMPRESSION: No acute posttraumatic osseous injury.
--- NOTE | 2025-01-27 18:09 | ECG_ITS ---
APPROVED REPORT Exam: Resting ECG HR:70 bpm ECG Measurements Heart Rate 70 AXES ND 206 P 93 QRSd 97 QRS 81 QT 415 T 71 QTc 435 Conclusion SINUS RHYTHM WITH OCCASIONAL VENTRICULAR PREMATURE COMPLEXES BORDERLINE ECG UNCONFIRMED REPORT Electronically signed by : NASRIN DACOSTA, 01/29/2025 06:47:45
--- OUTSIDE RECORDS SUMMARY | 2025-01-27 18:21 | XMS_ITS | Data Portability ---
Author Organization [facility] [address] [place] [address] Care Team Providers Care Partner Name Role Phone AKILAH HAGEN Primary Care Provider [phone] Assessment Encounter Date Assessment Date Assessment LastModified by Organization Details LastModified Time 08/12/2020 08/12/2020 Troponins negative EKG is sinus Echo 07/2020: EF 55% [email or web address] Not available 08/12/2020 16:07:01 Plan of Treatment Reminders Order Date Submit Date Provider Last Modified By Organization Details Last Modified Time Details Appointments None record ed. Lab None record ed. Referral None record ed. Procedures None record ed. Surgeries None record ed. Imaging None record ed. Medication Orders None record ed. Patient TargetsNo targets recorded. Patient InstructionsNo instructions recorded. Reason for Referral None Reported. Results Created Date Observation Date Name Description Value Unit Range Abnormal Flag Note LastModifiedBy Organization Detail LastModifiedTime 07/14/1907/12/2020 echoc ardio gram 2D spec- color flow Proced ure: Transt horaci c Echoca rdiogr am Report Nasima márquez Name: JAMIA Emery Date of Exam: 07/13/19 2:42:0 5 PM Date of : 1949 Medica l Record #: [id number] Age / Gender : 70 years / F Master Nasima márquez ID: [id number] Height : 65.0 in (165.1 cm) Access ion #: [id number] Weight : 238.0 lb (108.0 kg) Admiss ion [id number] BSA: 2.13 mA? Admiss ion Status : BP: 130/93 mmHg HR: 88 bpm Reques ting Provid er: Shaneka Hardwick E. Echo Techno logist : ESL Approp riate Indica tion: Chest pain Additi onal Study Inform ation/ Commen ts: Study image qualit y was poor. Techni jv diffic ult study due to patien t body habitu s. SUMMAR Y: 1. Left ventri cular ejecti on fracti on, by visual estima tion, is hyperd ynamic : >75 %. 2. Mildly increa sed left ventri cular dietary internship al cavity size. 3. Grade I left ventri cular diasto lic dysfun ction with normal left atrial pressu re. 4. Trivia l perica rdial effusi on. PHYSIC SARA INTERP RETATI ON: Left Ventri kina: After obtain ing verbal consen t, Lumaso n intrav enous contra st agent was given for ventri cular opacif icatio n, to deline ate the left ventri cular endoca rdial border s. The left ventri cular dietary internship al cavity size is mildly increa sed. No left ventri cular hypert rophy. No region al wall motion abnorm alitie s. Left ventri cular ejecti on fracti on, by visual estima tion, is hyperd ynamic : >75 %. There is grade I left ventri cular diasto lic dysfun ction with normal left atrial pressu re. Right Ventri kina: The right ventri cular size is normal . Global RV systol ic functi on is normal by TAPSE. Left Atrium : The left atrium is normal in size. Left atrium size is normal by a volume index of 33.1 ml/mA? . Right Atrium : The right atrium is normal in size. Aortic Valve: The aortic valve is not well visual ized. No eviden ce of aortic valve regurg itatio n is seen. Mitral Valve: The mitral valve is normal in struct ure. There is thicke stew of the anteri or and hand i blocker ior mitral valve leafle ts. Trace mitral valve regurg itatio n is seen. Pulmon ic Valve: The pulmon ic valve is not well visual ized. No indica tion of pulmon ic valve regurg itatio n. Tricus pid Valve: The tricus pid valve is not well visual ized. Trace tricus pid regurg itatio n is visual ized. Aorta: The aortic root and ascend ing aorta are struct urally normal , with no eviden ce of dilata tion. Venous : The inferi or vena cava is normal in size and collap ses greate r than 50% with inspir ation. Inferi or vena cava flow is normal . Perica rdium: Trivia l perica rdial effusi on is presen t. There is a signif icant perica rdial fat pad presen t. Compar sarkis to Prior Study: There is no compar sarkis study availa ble. Left Ventri kina: LVIDd (2D): 5.26 cm (3.8-5 .2) LVIDs (2D): 2.70 cm (2.2-3 .5) IVSd (2D): 1.00 cm (0.6-0 .9) LVPWd (2D): 0.99 cm (0.6-0 .9) LV FS (2D): 48.7 % LV Volume s: LV Diasto lic Vol BP (MOD): 113.7 ml (56-10 4) LV Systol ic Vol BP (MOD): 26.1 ml (19-49 ) LV SYSTOL IC FUNCTI ON: Ejecti on Fracti on: EF-A4C (MOD): 83.6 % EF-A2C (MOD): 67.5 % EF - BP (MOD): 77.1 % Stroke Volume : SV-A4C (MOD): 96.1 ml SV-A2C (MOD): 74.9 ml SV - BP (MOD): 87.7 ml LV DIASTO LIC FUNCTI ON: Diasto logy Measur ements : MV Max E Veloci ty: 0.98 m/s MV Max A Veloci ty: 0.94 m/s MV E/A Ratio: 1.05 Tissue Dopple r (later al): Latera l MV E': 0.08 m/s Latera l E/E': 12.52 Tissue Dopple r (septa l): Septal MV E': 0.07 m/s Septal E/E': 14.31 LA Vol s, MOD BP: 70.4 ml LA Vol s, MOD BP i: 33.1 ml/m2 LA Vol s, A4Cs 30.3 ml/mA? (22-52 ) LA Vol s, A2C 34.3 ml/mA? LA Vol s, Biplan e 33.1 ml/mA? (16-34 ) Aorta: LVOT diamet er: 2.00 cm Aortic Root (2D): 3.30 cm (2.0-3 .7) Aortic Root indexe d: 1.55 cm/mA? Ascend ing Aorta: 3.00 cm Right Ventri kina: TAPSE: 1.99 cm (>1.7) SPECTR AL DOPPLE R ANALYS IS (where applic able): Mitral Valve: MV E Vmax: 0.98 MV Max Jd: 1.30 m/s MV Mean Grad: 4.0 mmHg MV VTI, Annulu s: 0.29 m MV DT: 197 msec MV Pressu re1/2 Time: 57.13 msec MV Area, by PHT: 3.85 spanish interpreter? Left Ventri cular Outflo w Tract: LVOT Vmax: 1.12 m/s LVOT VTI: 0.227 m LVOT Diamet er: 2.00 cm LVOT SV: 71.3 ml LVOT SI: 33.5 ml/mA? Aortic Valve: AoV Vmax: 1.88 m/s AoV Peak P.1 mmHg AoV Mean P.0 mmHg AoV VTI: 0.365 m Indexe d: AoV Area, by VTI: 1.95 cm2 0.92 cm2/m2 AoV Area, by Vmax: 1.87 cm2 AoV Area, by Vmn: 1.98 cm2 AoV Veloci ty ratio: 0.62 Tricus pid Valve and RV/PA Systol ic Pressu re: TAPSE: 1.99 cm RA Pressu re: 3 mmHg Pulmon ic Valve: PV Vmax: 1.45 m/s PV Max P.4 mmHg Electr onical ly signed by Reynold Davis MD on 07/14/19 21 at 7:45:3 3 AM Final [place] [id number] [facility], [place], [address], 07/13/2020 07:45:42 Result Notes None recorded. Problems Name Problem SNOMED Code Status Onset Date Resolution Date Notes Provider Name and Address Organization Details Recorded Time Disorder of salivary gland 50269683 Active 2020 Other diseases of salivary glands Misha honeycutt, [facility] 21:04:40 Atypical chest pain 619418959 Active 2020 Ivis Howard NP [address] , [place], [address], [facility] 16:04:36 Hypertensiv e disorder 89556409 Active 2020 Ivis Howard NP [address] , [place], [address], [facility] 16:04:45 Problem Notes Documentation Provider Name and Address Organization Details Recorded Time Neurosurgery Consult Note : [facility] Consult Neurosurgery PATIENT NAME: LUIS MELGAR : 50 ADMIT DATE: 07/23/21 DATE OF SERVICE: 07/24/21 Consult Neurosurgery CHIEF COMPLAINT: Headache, ICH HISTORY OF PRESENT ILLNESS: This is a 71-year-old white female he was brought to [facility] yesterday morning for acute altered mental status, nausea, and vomiting. Initial imaging including head CT showed evidence of a right occipital parietal intraparenchymal hemorrhage. She was transferred to [facility] for higher level of care for neurosurgical evaluation. On exam this morning, she is somewhat lethargic but with coaxing will wake up and answer questions appropriately. She recalls having a fairly severe headache earlier yesterday morning and being in the hospital, but is mostly amnestic to the events leading up to her presentation. She reports her headache is improved today. Denies any new weakness, numbness, or tingling in the extremities. Denies use of anticoagulant or antiplatelet therapy. PAST MEDICAL HISTORY: Hypertension, uncontrolled due to medication noncompliance COPD Depression CKD stage II FAMILY HISTORY: Unable to obtain, patient is confused and providing minimal history. REVIEW OF SYSTEMS: The review of systems are consistent with the complaints above. All other systems were reviewed and found to be negative. SOCIAL HISTORY: Unable to obtain, patient is confused and providing minimal history. PHYSICAL EXAM: General: T = 97.8?, HR 84, BP 150/60 This is a 71-year-old white female weighing 232.1 pounds with a BMI of 39.8. She has rather lethargic but is arousable to verbal stimulation and will respond with coaxing. Breathing is unlabored with symmetric chest expansion. Abdomen is soft, nontender, nondistended. Neurologic: Speech is limited but mostly clear and appropriate. Cranial nerves II-XII grossly intact with no evidence of facial, orolingual, oculomotor, accessory, or hypoglossal dysfunction. Pupils are 3 mm and equal, round, reactive to light bilaterally.. Meningeal signs negative. There is no pronator drift or dysmetria. Upper and lower extremity motor and reflex exam is grossly symmetric and normal. Sensory function is preserved through the distal extremities. Babinski sign is negative. DIAGNOSTIC STUDIES: Head CT: Interval approximately 5 cm right occipital parietal acute bleed with minimal mass effect without significant midline shift. There is associated subarachnoid acute blood. CTA head: IMPRESSION- No evidence of intracranial vessel occlusion or hemodynamically significant stenosis. No apparent aneurysm. IMPRESSION: This is a 71-year-old woman who presented to [facility] yesterday following acute altered mental status with nausea and vomiting. She was found to have a right occipital parietal intraparenchymal hemorrhage and she was transferred to [facility] for higher level of care. Upon further evaluation, she did have an MRI a little over 1 year ago which showed no evidence of structural etiology such as tumor, aneurysm, or AVM. She did have a repeat CT angiogram yesterday which again confirmed no structural etiology for cause of her hemorrhage. Patient herself reports that she is noncompliant with her blood pressure medications, and this is likely hypertensive hemorrhage. Plan as discussed with Dr. Kumar: 1. Right occipital parietal intraparenchymal hemorrhage -HD1. She is somnolent but arousable and following commands. -Follow-up imaging including CTA showed no structural cause of hemorrhage such as tumor, aneurysm, or AVM. -There are no surgical interventions planned from our point of view at this time. -SBP goals <130 for 48 hours. -Multimodal analgesia PRN pain/MADISON. -Zofran PRN nausea/vomiting -SCDs on at all times while in bed for DVT ppx. -Continue supportive ICU management. Thank you for allowing us to participate in the care of this very pleasant patient. We will keep you updated with her progress. This document is produced with the use of voice recognition technology. This is utilized to expedite patient care and the transfer of critical medical information among healthcare providers but does not exclude the possibility of typographical errors, voice recognition errors, grammatical errors or incomplete text. Vital Signs I &O: Vitals: Past 24 hours Last Min Max Temp C 36.5 36.5 37 Heart Rate 84 77 90 NI SBP 150 108 161 NI DBP 60 44 86 RespRate 33 19 33 SPO2 92 91 99 O2 Device Room air I & O: Previous Day Current Day 05:59-06:00 06:00-12:15 Intake 2375.00 625.00 Output 500.00 720.00 Net 1875.00 -95.00 Date of Service: Date of Service: -: STARPrimary: Akilah Hagen () Electronic Signatures: Chriss Kumar) (Signed 13:07) Co-Signer: Consult, Vital Signs I &O, Date of Service, - Susan Horn) (Signed 12:26) Authored: Consult, Vital Signs I &O, Date of Service, - Last Updated: 13:07 by Chriss Kumar) Not Available [facility] 07/24/2021 13:08:11 Medical Equipment None Reported. Allergies No known drug allergies Medications Name Sig Start Date Stop Date Status Note LastModified by Organization Details LastModified Time silver sulfadiazin e 1 % topical cream 08/12 completed Not Available Not Available Not Available bupropion HCl SR 150 mg tablet,12 hr sustained-r elease take one tablet by mouth twice daily 2020 active Not Available Not Available Not Avai lable clindamycin HCl 300 mg capsule Take 1 capsule every 6 hours by oral route. active Not Available Not Available No t Available lisinopril 20 mg tablet Take 1 tablet every day by oral route. active Not Available Not Available No t Available ondansetron HCl 4 mg tablet 08/12 completed Not Available Not Available Not Available sumatriptan 50 mg tablet 08/12 completed Not Available Not Available Not Available ciprofloxac in 500 mg tablet 08/12 completed Not Available Not Available Not Available aspirin 81 mg tablet,maurice yed release Take 1 tablet every day by oral route. active Not Available Not Available No t Available triamcinolo ne acetonide 0.1 % topical cream use as directed 2020 active Not Available Not Available Not Avai lable amlodipine 10 mg tablet Take 1 tablet every day by oral route. active Not Available Not Available No t Available pantoprazol e 40 mg tablet,maurice yed release Take 1 tablet every day by oral route. active Not Available Not Available No t Available lisinopril 10 mg tablet 08/12 completed Not Available Not Available Not Available betamethaso ne dipropionat e 0.05 % topical cream 08/12 completed Not Available Not Available Not Available methylpredn isolone 4 mg tablets in a dose pack 08/12 completed Not Available Not Available Not Available albuterol sulfate HFA 90 mcg/actuati on aerosol inhaler 08/12 completed Not Available Not Available Not Available ondansetron 4 mg disintegrat ing tablet Place 1 tablet twice a day by transling ual route. active Not Available Not Available No t Available hydrochloro thiazide 12.5 mg tablet 08/12 completed Not Available Not Available Not Available diclofenac 1 % topical gel 08/12 completed Not Available Not Available Not Available Stiolto Respimat 2.5 mcg-2.5 mcg/actuati on solution for inhalation inhale one puff twice daily 2020 active Not Available Not Available Not Avai lable Vitals Date Recorded Respiratory rate Body weight Body mass index (BMI) Body height Oxygen saturation Oxygen saturation in Arterial blood by Pulse oximetry Heart rate Systolic And Diastolic Provider Name and Address Organization Details Last Updated DateTime 16 /min 457275. 6 g 40.3 kg/m2 163.07 cm 99 % 99 % 81 /min 117/68 mm[Hg] Dinorah Singh [facility] 14:21:02 Social History Question Answer Notes LastModified by Organizat ion Details LastModified Time Tobacco Smoking Status Former Smoker Dinorah Singh null, [facility] 08/12/2020 14:13:47 What Is Your Level Of Caffeine Consumption? Heavy 5 Cups Daily [email or web address] Information not available 08/12/2020 How Much Tobacco Do You Chew? None [email or web address] Information not available 08/12/2020 Prescription Medication Abuse No [email or web address] Information not available 08/12/2020 Are You Working Retired [email or web address] Informat ion not available 08/12/2020 How Often Do You Have A DRINK Containing ALCOHOL? 2-3 Times A Week [email or web address] Information not available 08/12/2020 How Often Do You Have Six Or More DRINKS On One Occasion? Never [email or web address] Information not available 08/12/2020 Marital Status [email or web address] Informati on not available 08/12/2020 How Much Tobacco Do You Smoke? No [email or web address] Information not available 08/12/2020 Sex: Unknown Functional Status Question Answer Note LastModified by Organizat ion Details LastModified Time Do you or have you ever used smokeless tobacco? Never used smokeless tobacco [email or web address] Information not available 08/12/2020 Do you or have you ever used e-cigarettes or vape? Never used electronic cigarettes [email or web address] Information not available 08/12/2020 Mental Status None recorded. Family History Nothing Reported Notes:Family History: No str okelike disorders or cancers. Medical History No medical history recorded. Gynecological HistoryNo gynecological history recorded. Obstetrics History GPAL:G 0 P 0 0 0 0 Past Encounters Encounter ID Performer Location Encounter Start Date Encounter Closed Date Diagnosis/Indication Diagnosis SNOMED-CT Code Diagnosis ICD10 Code Diagnosis IMO Codes Diagnosis Note [id number] Timothy Davis MD [facility] [address] [place] [address] 08/12/2020 13:54:16 08/12/2020 20:48:02 Atypical chest pain 646141921 R07.89 Atypical chest pain and felt to be GI No symptoms since Protonix started Patient reports that cardiac cath 2 to 3 years ago was normal with her cardiologi st in [place] and she is also had stress test as well EF normal as above Hypertensive disorder 38 867187 I10 BP is well controlled Continue lisinopril 20 mg daily Continue amlodipine 10 mg daily Patient would like to stay with her cardiologi st up in [place]. She does live part-time in both places She can follow-up with us as needed Health Concerns Section Related Observation LastModified by Organization Detai ls LastModified Time None Recorded Concern Status LastModified by Organization Details LastModified Time None Recorded Advance Directives Directive None Recorded Payers Insurance Date Sequence Insurance Name Policy Number Policy La Covered Member ID La Member ID Guarantor Name 09/06/2021 SLIDING FEE SCHEDULE - DISCOUNT Luis Avalos Ramón 07/30/2021 2 [place] Luis Bailey Ramón [id number] Luis Bailey Ramón 11/05/2021 1 [place] Luis Avalos Ramón [id number] Luis Bailey Ramón 01/06/2022 1 [employer] (MEDICARE REPLACEMENT HMO) Luis Avalos Ramón [id number] Luis Bailey Ramón 07/29/2021 [employer] (MEDICARE REPLACEMENT/AD VANTAGE - PPO) Luis Bailey Ramón [id number] Luis Bailey Ramón 07/29/2021 [employer] (MEDICARE REPLACEMENT/AD VANTAGE - PPO) Luis Bailey Ramón [id number] Luis Bailey Ramón 09/06/2021 1 [employer] (MEDICARE REPLACEMENT/AD VANTAGE - PPO) [id number] Luis Avalos Ramón [id number] Luis Bailey Ramón 09/06/2021 1 [employer] Luis Bailey Ramón [id number] Luis Bailey Ramón 07/29/2021 [employer] (MEDICARE REPLACEMENT/AD VANTAGE - PPO) Luis Bailey Ramón [id number] Luis Bailey Ramón 07/29/2021 [employer] (MEDICARE REPLACEMENT/AD VANTAGE - PPO) Luis Melgar [id number] Luis Melgar 11/05/2021 [employer] (MEDICARE REPLACEMENT/AD VANTAGE - PPO) Luis Melgar [id number] Luis Melgar 11/09/2021 [employer] [employer] - MEDICARE-RAILR OAD LONGTERM BOARD (MEDICARE) Luis Melgar [id number] Luis Melgar 11/09/2021 1 [facility] (MEDICARE REPLACEMENT HMO) Luis Melgar [id number] Luis Melgar 01/07/2022 [place] Luis Melgar [id number] Luis Melgar Notes Date Note Type Note Provider Name and Address Organization Details Recorded Time 08/12/2020 text/html 70-year-old female who was seen in clinic for hospital follow-up. She was recently hospitalized at [facility] for atypical chest pain that occurred during intractable nausea and vomiting it was felt to be GI related. She underwent echocardiogram with hyperdynamic EF. Her blood pressures were elevated she was started on lisinopril and amlodipine. Today in clinic patient reports she had no further chest discomfort and the Protonix that she was prescribed on discharge has helped with her GERD. 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 In clinic today her BP is well controlled. She denies any chest pain, shortness of breath, PATE, PND orthopnea. No lightheadedness dizziness or syncope. Ivis Howard, [employer] [address], [place], [address], [facility] 08/12/2020 16:08:26 OBGyn Episode No OBEpisode recorded.
--- OUTSIDE RECORDS SUMMARY | 2025-01-27 18:21 | XMS_ITS | Patient Health Record ---
Author Organization [facility] Address [address] [address] Care Team Providers Care Primary Teacher Name Role Phone AUSTIN ANTONY APRN Primary Care Provider Unavailab le Lio Zavaleta Unavailable [phone] Allergies No Known Allergies Reason For Referral Reason 07/15/24 @ 12:40 pm- - -Chronic Kidney Disease, Stage 3b (cr 1.28) Diagnosis 1 Chronic kidney disea se (CKD) stage G3b/A1, moderately decreased glomerular filtration rate (GFR) between 30-44 mL/min/1.73 square meter and albuminuria creatinine ratio less than 30 mg/g (N18.32) Referring Provider First Name AUSTIN Referring Provider Last Name CASSIA LENZ Referring Provider Speciality [facility] Referred Organization [facility] Referred Provider Lio Zavaleta Referred Address [address] [place] [address], [facility] [[email or web address] [address],[place], [place],[address], Referred Provider Specialty Nephrology Referral Priority Routine Medications Medication SIG (Take, Route, Frequency, Duration) Notes Start Date End Date Status Fluticasone Propionate 50 MCG/ACT 1 spray in each nostril Nasally Twice a day Active Famotidine 40 MG 1 tablet Orally Once a day Active Metoprolol Tartrate 25 MG 0.5 tablet wit h food Orally Twice a day Active Bqkhojyhkph-Uzcrbpxsb-Fxdpo t 200-62.5-25 MCG/ACT 1 puff Inhalation Once a day Active buPROPion HCl ER (SR) 150 MG 1 tablet in the morning Orally twice daily Active Atorvastatin Calcium 40 MG 1 tablet Oral ly Once a day Active Betamethasone Valerate 0.1 % 1 application Externally twice daily Active Valsartan 40 MG 1 tablet Orally once daily Active Ondansetron 4 MG 1 tablet on the tongue and allow to dissolve Orally Once a day As needed Active Albuterol Sulfate HFA 108 (90 Base) MCG/ACT 1 puff as needed Inhalation every 4 hrs Active Omeprazole 20 MG 1 capsule 1/2 to 1 hour before morning meal Orally Once a day As needed Active amLODIPine Besylate 10 MG 1 tablet Orall y Once a day Active Sertraline HCl 100 MG 1 tablet Orally On ce a day Active Aspirin 81 81 MG 1 tablet Orally Once a day Active Primidone 50 MG 1 tablet Orally thre e times a day Active Problems Problem Type SNOMED Code ICD Code Onset Dates Problem Status W/U Status Risk Notes Problem Chronic kidney disease stage 3A (disorder) (714626702) Chronic kidney disease, stage 3a (N18.31) Active confirmed Problem Chronic kidney disease stage 3B (disorder) (310757107) Chronic kidney disease, stage 3b (N18.32) Active confirmed Problem Essential hypertension (08082057) Essential hypertension (I10) Active confirmed Problem Anemia (670332585) Anemia, unspecified type (D64.9) Active confirmed Problem Chronic kidney disease stage 3B (disorder) (866848835) Chronic kidney disease (CKD) stage G3b/A1, moderately decreased glomerular filtration rate (GFR) between 30-44 mL/min/1.73 square meter and albuminuria creatinine ratio less than 30 mg/g (N18.32) Active confirmed Vital Signs Heart Rate 63 /min 11/18/2024 Temperature 97.6 degrees Fahrenheit 11/18/2024 Respiratory Rate 20 /min 11/18/2024 Height-cm 163.83 cm 11/18/2024 Oximetry 95 % 11/18/2024 Blood pressure diastolic 67 mm Hg 11/18/2024 Weight-kg 104.83 kg 11/18/2024 Height 64.5 in 11/18/2024 Blood pressure systolic 137 mm Hg 11/18/2024 Weight 231.1 lbs 11/18/2024 BMI 39.05 kg/m2 11/18/2024 Encounters Encounter Location Date Provider Diagnosis [facility] [address] [facility] [place] [address] 11/18/2024 Ayman Geneidy Chronic kidney disease, stage 3b N18.32 [facility] [address] [place] [address] 07/15/2024 Lio Zavaleta Chronic kidney disease, stage 3a N18.31 ; Essential hypertension I10 and Anemia, unspecified type D64.9 Assessments Encounter Date Diagnosis (ICD Code) Assessment Notes Treatment Notes Treatment Clinical Notes Section Notes 07/15/2024 Chronic kidney disease, stage 3a (ICD-10 - N18.31) = IMPRESSION The pt has chronic kidney disease likely related to renovascular disease. She is on multiple antihypertensives including ARB. She might have had a period of renal hypoperfusion in March that resulted in the abnormal creatinine. She has benign urinary findings. She does have mild anemia that could be chronic kidney disease or deficiency anemia PLAN 1. We discussed her current level of renal dysfunction and I assured her that she does not have risk factors for progression of chronic kidney disease 2. Discussed the importance of adequate blood pressure control target less than 130/80. Would like to avoid excessive lowering of systolic readings closer to 110 or less 3. Will continue current antihypertensives and we will schedule her for repeat renal functions and urine studies. Will check immunofixation as well 07/15/2024 Essential hypertension (ICD-10 - I10) = IMPRESSION The pt has chronic kidney disease likely related to renovascular disease. She is on multiple antihypertensives including ARB. She might have had a period of renal hypoperfusion in March that resulted in the abnormal creatinine. She has benign urinary findings. She does have mild anemia that could be chronic kidney disease or deficiency anemia PLAN 1. We discussed her current level of renal dysfunction and I assured her that she does not have risk factors for progression of chronic kidney disease 2. Discussed the importance of adequate blood pressure control target less than 130/80. Would like to avoid excessive lowering of systolic readings closer to 110 or less 3. Will continue current antihypertensives and we will schedule her for repeat renal functions and urine studies. Will check immunofixation as well 11/18/2024 Chronic kidney disease, stage 3b (ICD-10 - N18.32) 07/15/2024 Anemia, unspecified type (ICD-10 - D64.9) = IMPRESSION The pt has chronic kidney disease likely related to renovascular disease. She is on multiple antihypertensives including ARB. She might have had a period of renal hypoperfusion in March that resulted in the abnormal creatinine. She has benign urinary findings. She does have mild anemia that could be chronic kidney disease or deficiency anemia PLAN 1. We discussed her current level of renal dysfunction and I assured her that she does not have risk factors for progression of chronic kidney disease 2. Discussed the importance of adequate blood pressure control target less than 130/80. Would like to avoid excessive lowering of systolic readings closer to 110 or less 3. Will continue current antihypertensives and we will schedule her for repeat renal functions and urine studies. Will check immunofixation as well Plan Of Treatment Pending Test Test Name Order Date Immunofixation, Serum 07/15/2024 Hemoglobin 07/15/2024 Hemoglobin 11/18/2024 PTH, Intact 07/15/2024 Vitamin D, 25-Hydroxy 07/15/2024 Microalb/Creat Ratio, Randm Ur Microalb/Creat Ratio, Randm Ur Renal Panel (10) 11/18/2024 Renal Panel (10) 07/15/2024 Urinalysis 07/15/2024 Urinalysis 11/18/2024 Next Appt Details Provider Name:Lio godinez, 09/22/2025 12:00:00 PM, [address] , [facility] [[email or web address] [address], [place], [address], Insurance Providers Payer Name Payer Address Payer Phone Subscriber Number Group Number Insured Name Patient Relationship to Insured Coverage Start Date Coverage End Date [facility] [address] [place] [address] [id number] MARITZALUIS PIERRE Self - patient is the insured Medical (General) History Medical History History ICD Code gastroesophageal reflux disease anemia of chronic disease stroke hypertension chronic sleep disorder hyperlipidemia psoriasis
--- OUTSIDE RECORDS SUMMARY | 2025-01-27 18:21 | XMS_ITS | Data Portability ---
Author Organization [employer] [facility] Address [address] [place] [address] Assessment Encounter Date Assessment Date Assessment LastModified by Organization Details LastModified Time 01/07/2024 01/07/2024 Symptoms and PE consistent with COPD exacerbation and likely UTI. We will send urine for culture. Antibiotic and steroid as prescribed for COPD. Recommended probiotics. Complete antibiotic regimen in its entirety. Increase oral fluids. Continue mucinex OTC and tylenol PRN for MADISON. Follow up if no improvement or worsening and as needed. [facility] Not available 01/07/2024 16:12:43 Plan of Treatment Reminders Order Date Submit Date Provider Last Modified By Organization Details Last Modified Time Details Appointments None recorded. Lab urinalysis , dipstick [address], [address], 4 13:49:39 culture, urine 2023 024 [facility], [address] [place] [address], [place], [address], 4 20:07:07 urinalysis , dipstick 2023 [email or web address], [address], 4 18:04:03 lipid panel, serum 2023 024 [employer] [facility], [address], [place], [address], 4 12:53:30 TSH, serum or plasma 2023 Stroz [facility], [address], [place], [address], 4 12:53:32 vitamin D, 25-hydroxy , total, serum 2023 [employer] [facility], [address], [place], [address], 4 12:53:33 noninvasiv e colorectal cancer DNA + occult blood screening, QL, stool 2023 [facility], [address], [address], [place], [address], 5 09:30:45 CBC w/ auto diff 2023 [facility]ol[facility], [address], [place], [address], 4 12:53:32 CMP, serum or plasma 2023 St[facility], [address], [place], [address], 4 12:53:31 Referral None recorded. Procedures None recorded. Surgeries None recorded. Imaging MAMMO, screening, digital, bilateral - [facility], same day as lung scan, needs appt in SEPTEMBER [id number] 024 VIKA [facility]), [address], [place], [address], 4 09:04:51 LDCT, chest, for lung cancer screening - [facility], same day as mammo, Needs appt in September 024 [facility]KA [facility], [address], [place], [address], 4 09:02:29 Medication Orders prednisone 20 mg tablet 2023 024 [facility], [address] [place] [address], [address], 4 15:12:43 albuterol sulfate HFA 90 mcg/actuat ion aerosol inhaler 2023 024 [facility], [facility] [place], [address], 4 15:12:41 Augmentin 875 mg-125 mg tablet 2023 024 [facility], [facility] [place] [place], [address], 4 15:12:41 Macrobid 100 mg capsule 2023 024 [facility], [address] [place] [address], [address], 4 19:00:52 metoprolol tartrate 25 mg tablet [address] [address] [place] [address], [address], 4 18:04:02 betamethas one dipropiona te 0.05 % topical ointment [address] [employer] [address] [place] [address], [address], 4 18:04:02 primidone 50 mg tablet 2023 024 [facility] [employer] [address] [place] [address], [address], 4 11:25:24 sertraline 100 mg tablet 2023 024 [facility], [facility] [place], [address], 4 15:40:53 amlodipine 10 mg tablet 2023 024 [facility], [facility] [place] [place], [address], 4 15:40:53 valsartan 40 mg tablet 2023 024 [facility], [facility] [place] [place], [address], 4 15:40:52 Trelegy Ellipta 200 mcg-62.5 mcg-25 mcg powder for inhalation [address] [facility], [address] [place] [address], [address], 4 17:04:22 albuterol sulf 90 mcg/actuat ion breath activated powder inhaler,se nsor [address] [facility], [address] [place] [address], [address], 4 13:34:15 albuterol sulfate 2.5 mg/3 mL (0.083 %) solution for nebulizati on [address] [facility], [address] [place] [address], [address], 4 11:53:40 prednisone 20 mg tablet 2023 024 [facility], [address] [place] [address], [address], 4 16:37:02 azithromyc in 250 mg tablet 2023 024 [facility], [address] [place] [address], [address], 4 16:37:05 guaifenesi n ER 600 mg tablet, extended release 12 hr 2023 024 [facility], [address] [place] [address], [address], 4 16:36:53 Patient TargetsNo targets recorded. Patient Instructions Encounter Date Encounter Id Patient Instructions Last Modified By Organization Details Last Modified Time 01/07/2024 [id number] weight managemen t education Not available 01/07/2024 13:49:36 body mass index: care instructions Not available 01/07/2024 13:49:36 learning about healthy weight Not available 01/07/2024 13:49:36 Reason for Referral None Reported. Results Created Date Observation Date Name Description Value Unit Range Abnormal Flag Note LastModifiedBy Organization Detail LastModifiedTime 11/06/19 24 11/06/2023 IRON, TIBC AND RIKA TIN PANEL iron, total 83 mcg/d L 45-160 normal Not Available [facility] [address] [place], [address], 11/06/2023 12:36:37 11/06/19 24 11/06/2023 IRON, TIBC AND RIKA TIN PANEL iron binding capacity 280 mcg/d L_(ca lc) 250-45 0 normal Not Available [facility] [address] [place], [address], 11/06/2023 12:36:37 11/06/19 24 11/06/2023 IRON, TIBC AND RIKA TIN PANEL % saturation 30 %_(ca lc) 16-45 normal Not Available [facility] [address], [place], [address], 11/06/2023 12:36:37 11/06/19 24 11/06/2023 IRON, TIBC AND RIKA TIN PANEL ferritin 113 NG/mL 16-288 normal Not Available [facility] [facility] [address] [place], [address], 11/06/2023 12:36:37 11/06/19 24 11/06/2023 RENAL FUNCT ION PANEL glucose 92 mg/dL 65-99 normal Fasti ng refer ence inter best Not Available [facility] [address] [place], [address], 11/06/2023 12:36:37 11/06/19 24 11/06/2023 RENAL FUNCT ION PANEL urea nitrogen (BUN) 19 mg/dL 7-25 normal Not Available [employer] [facility] [address] [place], [address], 11/06/2023 12:36:37 11/06/19 24 11/06/2023 RENAL FUNCT ION PANEL creatinine 1.48 mg/dL 0.60-1 .00 high Not Available [facility] [address] [place], [address], 11/06/2023 12:36:37 11/06/19 24 11/06/2023 RENAL FUNCT ION PANEL eGFR 37 mL/mi n/1.7 3m2 > or = 60 low Not Available [facility] [address] [place], [address], 11/06/2023 12:36:37 11/06/19 24 11/06/2023 RENAL FUNCT ION PANEL BUN/creatini ne ratio 13 (calc ) 6-22 normal Not Available [employer] [facility] [address] [place], [address], 11/06/2023 12:36:37 11/06/19 24 11/06/2023 RENAL FUNCT ION PANEL sodium 142 mmol/ L 135-14 6 normal Not Available [facility] [address] [facility] [place], [address], 11/06/2023 12:36:37 11/06/19 24 11/06/2023 RENAL FUNCT ION PANEL potassium 4.5 mmol/ L 3.5-5. 3 normal Not Available [facility] [address] [place], [address], 11/06/2023 12:36:37 11/06/19 24 11/06/2023 RENAL FUNCT ION PANEL chloride 107 mmol/ L 98-110 normal Not Available [facility] [address] [facility] [place], [address], 11/06/2023 12:36:37 11/06/19 24 11/06/2023 RENAL FUNCT ION PANEL carbon dioxide 28 mmol/ L 20-32 normal Not Available [facility] [address] [facility] [place], [address], 11/06/2023 12:36:37 11/06/19 24 11/06/2023 RENAL FUNCT ION PANEL calcium 9.1 mg/dL 8.6-10 .4 normal Not Available [facility] [address] [facility] [place], [address], 11/06/2023 12:36:37 11/06/19 24 11/06/2023 RENAL FUNCT ION PANEL phosphate ( phosphorus) 4.5 mg/dL 2.1-4. 3 high Not Available [facility] [address] [facility] [place], [address], 11/06/2023 12:36:37 11/06/19 24 11/06/2023 RENAL FUNCT ION PANEL albumin 4.3 g/dL 3.6-5. 1 normal Not Available [facility] [address] [facility] [place], [address], 11/06/2023 12:36:37 11/06/19 24 11/06/2023 CBC (INCL UDES DIFF/ PLT) white blood cell count 4.7 thous and/u L 3.8-10 .8 normal Not Available [facility] [address] [facility] [place], [address], 11/06/2023 12:36:38 11/06/19 24 11/06/2023 CBC (INCL UDES DIFF/ PLT) red blood cell count 3.83 ellen on/uL 3.80-5 .10 normal Not Available [facility] [address] [facility] [place], [address], 11/06/2023 12:36:38 11/06/19 24 11/06/2023 CBC (INCL UDES DIFF/ PLT) hemoglobin 11.5 g/dL 11.7-1 5.5 low Not Available [facility] [address] [facility] [place], [address], 11/06/2023 12:36:38 11/06/19 24 11/06/2023 CBC (INCL UDES DIFF/ PLT) hematocrit 36.6 % 35.0-4 5.0 normal Not Available [facility] [address] [facility] [place], [address], 11/06/2023 12:36:38 11/06/19 24 11/06/2023 CBC (INCL UDES DIFF/ PLT) MCV 95.6 fL 80.0-1 00.0 normal Not Available [facility] [address] [facility] [place], [address], 11/06/2023 12:36:38 11/06/19 24 11/06/2023 CBC (INCL UDES DIFF/ PLT) MCH 30.0 pg 27.0-3 3.0 normal Not Available [facility] [address] [facility] [place], [address], 11/06/2023 12:36:38 11/06/19 24 11/06/2023 CBC (INCL UDES DIFF/ PLT) MCHC 31.4 g/dL 32.0-3 6.0 low Not Available [facility] [address] [facility], [place], [address], 11/06/2023 12:36:38 11/06/19 24 11/06/2023 CBC (INCL UDES DIFF/ PLT) RDW 12.4 % 11.0-1 5.0 normal Not Available [facility] [address] [facility] [address], [place], [address], 11/06/2023 12:36:38 11/06/19 24 11/06/2023 CBC (INCL UDES DIFF/ PLT) platelet count 194 thous and/u L 140-40 0 normal Not Available [facility] [address] [facility], [place], [address], 11/06/2023 12:36:38 11/06/19 24 11/06/2023 CBC (INCL UDES DIFF/ PLT) MPV 10.3 fL 7.5-12 .5 normal Not Available [facility] [address] [facility], [place], [address], 11/06/2023 12:36:38 11/06/19 24 11/06/2023 CBC (INCL UDES DIFF/ PLT) absolute neutrophils 3257 cells /uL 1500-7 800 normal Not Available [facility] [address] [facility] [address] [address], [place], [address], 11/06/2023 12:36:38 11/06/19 24 11/06/2023 CBC (INCL UDES DIFF/ PLT) absolute lymphocytes 865 cells /uL 850-39 00 normal Not Available [facility] [address] [facility] [address], [place], [address], 11/06/2023 12:36:38 11/06/19 24 11/06/2023 CBC (INCL UDES DIFF/ PLT) absolute monocytes 400 cells /uL 200-95 0 normal Not Available [facility] [address] [facility] [place], [address], 11/06/2023 12:36:38 11/06/19 24 11/06/2023 CBC (INCL UDES DIFF/ PLT) absolute eosinophils 141 cells /uL 15-500 normal Not Available [facility] [address] [facility], [place], [address], 11/06/2023 12:36:38 11/06/19 24 11/06/2023 CBC (INCL UDES DIFF/ PLT) absolute basophils 38 cells /uL 0-200 normal Not Available [facility] [address] [facility], [place], [address], 11/06/2023 12:36:38 11/06/19 24 11/06/2023 CBC (INCL UDES DIFF/ PLT) neutrophils 69.3 % normal Not Available [facility] [address] [facility] [address] [address], [place], [address], 11/06/2023 12:36:38 11/06/19 24 11/06/2023 CBC (INCL UDES DIFF/ PLT) lymphocytes 18.4 % normal Not Available [facility] [address] [facility], [place], [address], 11/06/2023 12:36:38 11/06/19 24 11/06/2023 CBC (INCL UDES DIFF/ PLT) monocytes 8.5 % normal Not Available [facility] [address] [facility] [address] [address], [place], [address], 11/06/2023 12:36:38 11/06/19 24 11/06/2023 CBC (INCL UDES DIFF/ PLT) eosinophils 3.0 % normal Not Available [facility] [address] [facility] [address], [place], [address], 11/06/2023 12:36:38 11/06/19 24 11/06/2023 CBC (INCL UDES DIFF/ PLT) basophils 0.8 % normal Not Available [facility] [address] [place], [address], 11/06/2023 12:36:38 11/06/19 24 11/06/2023 URINA LYSIS MICRO SCOPI C WBC TNP TEST NOT PERFO RMED No suita ble speci men recei roopa. Miguel Angel e fiona w the test requi remen ts at testd irect ory.q uestd iagno stics .com Not Available [facility] [address] [place], [address], 11/06/2023 12:36:39 11/06/19 24 11/06/2023 EXTRA SPECI MEN extra tube received An extra speci men was recei roopa with no test reque sted. The speci men will be maint ained in rusta ge in case addit ional testi ng is neede d. Miguel Angel e call the clien t servi ce depar tment for [facility] mayra botello . Not Available [facility] [address] [place], [address], 11/06/2023 12:36:39 11/06/19 24 11/06/2023 EXTRA SPECI MEN specimen type received Urine NO COLLE CTION DATE RECEI ROOPA. WE HAVE USED THE DATE THE SPECI MEN WAS RECEI ROOPA BY THIS LABOR ATORY THE COLLE CTION DATE. IF THIS IS INCOR RECT, MIGUEL ANGEL Montelongo CONTA CT CLIEN T SERVI ALISHA. PHONE NUMBE R: [phone] Not Available [facility] [address] [place], [address], 11/06/2023 12:36:39 08/06/19 24 08/07/2023 LIPID PANEL , STAND FELICITA cholesterol, total 139 mg/dL <200 normal Not Available [facility] [address] [facility] [address] [address], [place], [address], 08/07/2023 13:37:19 08/06/19 24 08/07/2023 LIPID PANEL , STAND FELICITA HDL cholesterol 75 mg/dL > or = 50 normal Not Available [facility] [address] [facility] [address], [place], [address], 08/07/2023 13:37:19 08/06/19 24 08/07/2023 LIPID PANEL , STAND FELICITA triglyceride s 76 mg/dL <150 normal Not Available [facility] [address] [facility], [place], [address], 08/07/2023 13:37:19 08/06/19 24 08/07/2023 LIPID PANEL , STAND FELICITA LDL-choleste rol 48 mg/dL _(aracelis c) normal Refer ence range : <100 Yoli able range <100 mg/dL for prima ry preve ntion ; <70 mg/dL for patie nts with CHD or diabe tic patie nts with > or = 2 CHD risk facto rs. LDL-C is now calcu lated using the Carolyn n-Hop kins calcu anson n, which is a valid ated novel thea taylor ding charles r accur acy than the Fried arabella equat ion in the estim ation of LDL-C . Carolyn davenport SS et al. MARIKA. 2013; 310(1 9): 2061- 2068 (http ://ed ucati on.Qu K[employer]. com/f aq/FA Q164) Not Available [facility] [address] [facility] [address], [place], [address], 08/07/2023 13:37:19 08/06/19 24 08/07/2023 LIPID PANEL , STAND FELICITA chol/HDLC ratio 1.9 (calc ) <5.0 normal Not Available [facility] [address] [facility] [address], [place], [address], 08/07/2023 13:37:19 08/06/19 24 08/07/2023 LIPID PANEL , STAND FELICITA non HDL cholesterol 64 mg/dL _(aracelis c) <130 normal For patie nts with diabe audrey plus 1 major ASCVD risk facto r, treat ing to a non-H DL-C goal of <100 mg/dL (LDL- C of <70 mg/dL ) is consi dered a thera pexochitli c optio n. Not Available [facility] [address] [facility] [place], [address], 08/07/2023 13:37:19 08/06/19 24 08/07/2023 COMPR EHENS BRUNA METAB OLIC PANEL glucose 93 mg/dL 65-139 normal Non-f astin g refer ence inter best Not Available [facility] [address] [place], [address], 08/07/2023 13:37:20 08/06/19 24 08/07/2023 COMPR EHENS BRUNA METAB OLIC PANEL urea nitrogen (BUN) 17 mg/dL 7-25 normal Not Available [facility] [address] [facility] [place], [address], 08/07/2023 13:37:20 08/06/19 24 08/07/2023 COMPR EHENS BRUNA METAB OLIC PANEL creatinine 1.42 mg/dL 0.60-1 .00 high Not Available [facility] [address] [facility] [place], [address], 08/07/2023 13:37:20 08/06/19 24 08/07/2023 COMPR EHENS BRUNA METAB OLIC PANEL eGFR 39 mL/mi n/1.7 3m2 > or = 60 low Not Available [facility] [address] [facility], [place], [address], 08/07/2023 13:37:20 08/06/19 24 08/07/2023 COMPR EHENS BRUNA METAB OLIC PANEL BUN/creatini ne ratio 12 (calc ) 6-22 normal Not Available [facility] [address] [facility] [place], [address], 08/07/2023 13:37:20 08/06/19 24 08/07/2023 COMPR EHENS BRUNA METAB OLIC PANEL sodium 143 mmol/ L 135-14 6 normal Not Available [facility] [address] [place], [address], 08/07/2023 13:37:20 08/06/19 24 08/07/2023 COMPR EHENS BRUNA METAB OLIC PANEL potassium 4.9 mmol/ L 3.5-5. 3 normal Not Available [facility] [address] [place], [address], 08/07/2023 13:37:20 08/06/19 24 08/07/2023 COMPR EHENS BRUNA METAB OLIC PANEL chloride 107 mmol/ L 98-110 normal Not Available [facility] [address] [place], [address], 08/07/2023 13:37:20 08/06/19 24 08/07/2023 COMPR EHENS BRUNA METAB OLIC PANEL carbon dioxide 28 mmol/ L 20-32 normal Not Available [facility] [address] [place], [address], 08/07/2023 13:37:20 08/06/19 24 08/07/2023 COMPR EHENS BRUNA METAB OLIC PANEL calcium 9.0 mg/dL 8.6-10 .4 normal Not Available [facility] [address] [place], [address], 08/07/2023 13:37:20 08/06/19 24 08/07/2023 COMPR EHENS BRUNA METAB OLIC PANEL protein, total 6.6 g/dL 6.1-8. 1 normal Not Available [facility] [address] [facility] [place], [address], 08/07/2023 13:37:20 08/06/19 24 08/07/2023 COMPR EHENS BRUNA METAB OLIC PANEL albumin 4.2 g/dL 3.6-5. 1 normal Not Available [facility] [address] [place], [address], 08/07/2023 13:37:20 08/06/19 24 08/07/2023 COMPR EHENS BRUNA METAB OLIC PANEL globulin 2.4 g/dL_ (calc ) 1.9-3. 7 normal Not Available [facility] [address] [place], [address], 08/07/2023 13:37:20 08/06/19 24 08/07/2023 COMPR EHENS BRUNA METAB OLIC PANEL albumin/glob ulin ratio 1.8 (calc ) 1.0-2. 5 normal Not Available [facility] [address] [place], [address], 08/07/2023 13:37:20 08/06/19 24 08/07/2023 COMPR EHENS BRUNA METAB OLIC PANEL bilirubin, total 0.5 mg/dL 0.2-1. 2 normal Not Available [facility] [place], [address], 08/07/2023 13:37:20 08/06/19 24 08/07/2023 COMPR EHENS BRUNA METAB OLIC PANEL alkaline phosphatase 104 U/L 37-153 normal Not Available [facility] [employer] [facility] [address] [place], [address], 08/07/2023 13:37:20 08/06/19 24 08/07/2023 COMPR EHENS BRUNA METAB OLIC PANEL AST 9 U/L 10-35 low Not Available [facility] [address] [facility] [address], [place], [address], 08/07/2023 13:37:20 08/06/19 24 08/07/2023 COMPR EHENS BRUNA METAB OLIC PANEL ALT 8 U/L 6-29 normal Not Available [facility] [address] [facility], [place], [address], 08/07/2023 13:37:20 08/06/19 24 08/07/2023 CBC (INCL UDES DIFF/ PLT) white blood cell count 4.9 thous and/u L 3.8-10 .8 normal Not Available [facility] [address] [facility], [place], [address], 08/07/2023 12:53:32 08/06/19 24 08/07/2023 CBC (INCL UDES DIFF/ PLT) red blood cell count 3.68 ellen on/uL 3.80-5 .10 low Not Available [facility] [address] [facility] [place], [address], 08/07/2023 12:53:32 08/06/19 24 08/07/2023 CBC (INCL UDES DIFF/ PLT) hemoglobin 10.9 g/dL 11.7-1 5.5 low Not Available [facility] [address] [facility] [place], [address], 08/07/2023 12:53:32 08/06/19 24 08/07/2023 CBC (INCL UDES DIFF/ PLT) hematocrit 34.5 % 35.0-4 5.0 low Not Available [facility] [address] [facility] [place], [address], 08/07/2023 12:53:32 08/06/19 24 08/07/2023 CBC (INCL UDES DIFF/ PLT) MCV 93.8 fL 80.0-1 00.0 normal Not Available [facility] [address], [place], [address], 08/07/2023 12:53:32 08/06/19 24 08/07/2023 CBC (INCL UDES DIFF/ PLT) MCH 29.6 pg 27.0-3 3.0 normal Not Available [facility] [address], [place], [address], 08/07/2023 12:53:32 08/06/19 24 08/07/2023 CBC (INCL UDES DIFF/ PLT) MCHC 31.6 g/dL 32.0-3 6.0 low Not Available [facility] [address], [place], [address], 08/07/2023 12:53:32 08/06/19 24 08/07/2023 CBC (INCL UDES DIFF/ PLT) RDW 12.3 % 11.0-1 5.0 normal Not Available [facility] [address], [place], [address], 08/07/2023 12:53:32 08/06/19 24 08/07/2023 CBC (INCL UDES DIFF/ PLT) platelet count 179 thous and/u L 140-40 0 normal Not Available [facility] [address] [facility], [place], [address], 08/07/2023 12:53:32 08/06/19 24 08/07/2023 CBC (INCL UDES DIFF/ PLT) MPV 10.5 fL 7.5-12 .5 normal Not Available [facility] [address] [facility] [address], [place], [address], 08/07/2023 12:53:32 08/06/19 24 08/07/2023 CBC (INCL UDES DIFF/ PLT) absolute neutrophils 3298 cells /uL 1500-7 800 normal Not Available [facility] [address] [facility], [place], [address], 08/07/2023 12:53:32 08/06/19 24 08/07/2023 CBC (INCL UDES DIFF/ PLT) absolute lymphocytes 960 cells /uL 850-39 00 normal Not Available [facility] [address] [facility], [place], [address], 08/07/2023 12:53:32 08/06/19 24 08/07/2023 CBC (INCL UDES DIFF/ PLT) absolute monocytes 431 cells /uL 200-95 0 normal Not Available [facility] [facility] [address] [facility], [place], [address], 08/07/2023 12:53:32 08/06/19 24 08/07/2023 CBC (INCL UDES DIFF/ PLT) absolute eosinophils 172 cells /uL 15-500 normal Not Available [facility] [address] [facility], [place], [address], 08/07/2023 12:53:32 08/06/19 24 08/07/2023 CBC (INCL UDES DIFF/ PLT) absolute basophils 39 cells /uL 0-200 normal Not Available [facility] [address] [facility], [place], [address], 08/07/2023 12:53:32 08/06/19 24 08/07/2023 CBC (INCL UDES DIFF/ PLT) neutrophils 67.3 % normal Not Available [facility] [address] [facility], [place], [address], 08/07/2023 12:53:32 08/06/19 24 08/07/2023 CBC (INCL UDES DIFF/ PLT) lymphocytes 19.6 % normal Not Available [facility] [address] [facility], [place], [address], 08/07/2023 12:53:32 08/06/19 24 08/07/2023 CBC (INCL UDES DIFF/ PLT) monocytes 8.8 % normal Not Available [facility] [address] [place], [address], 08/07/2023 12:53:32 08/06/19 24 08/07/2023 CBC (INCL UDES DIFF/ PLT) eosinophils 3.5 % normal Not Available [facility] [address] [place], [address], 08/07/2023 12:53:32 08/06/19 24 08/07/2023 CBC (INCL UDES DIFF/ PLT) basophils 0.8 % normal Not Available [facility] [address] [place], [address], 08/07/2023 12:53:32 08/06/19 24 08/07/2023 TSH W/REF JULIA TO FT4 TSH w/reflex to FT4 2.34 mIU/L 0.40-4 .50 normal Not Available [facility] [address] [place], [address], 08/07/2023 15:01:47 08/06/19 24 08/07/2023 VITAM IN D,25- OH,TO AMITA,I A vitamin D,25-oh,tota l,ia 32 NG/mL 30-100 normal Vitam in D Statu s 25-OH Vitam in D: Defic iency : <20 ng/mL Insuf ficie ncy: 20 - 29 ng/mL Optim al: > or = 30 ng/mL For 25-OH Vitam in D testi ng on patie nts on D2-ny pplem entat ion and patie nts for whom quant itati on of D2 and D3 fract ions is requi red, the [facility] e[facility](TM ) 25-OH VIT D, (D2,D 3), LC/MS /MS is recom barbara d: order code 32786 (antonia ents >2yrs ). See Note 1 Note 1 For addit ional infor miguel angel san refer to http: //edu kevin Del Angelia gnost ics.c om/fa q/FAQ 199 (This link is being provi ded for infor nereyda laguna/ jorge sargent ses only. ) Not Available [facility] [address] [place] [address], [place], [address], 08/07/2023 15:01:48 12/07/19 24 12/07/2023 urina lysis , dipst ick Leukocytes Small Not Available [address], [address], 12/07/2023 17:38:34 12/07/19 24 12/07/2023 urina lysis , dipst ick Nitrite positi ve Not Available [address], [address], 12/07/2023 17:38:34 12/07/19 24 12/07/2023 urina lysis , dipst ick Urobilinogen .2 Not Available [address], [address], 12/07/2023 17:38:34 12/07/19 24 12/07/2023 urina lysis , dipst ick Protein Negati ve Not Available [address], [address], 12/07/2023 17:38:34 12/07/19 24 12/07/2023 urina lysis , dipst ick pH 6.0 Not Available [address], [address], 12/07/2023 17:38:34 12/07/19 24 12/07/2023 urina lysis , dipst ick Blood Negati ve Not Available [address], [address], 12/07/2023 17:38:34 12/07/19 24 12/07/2023 urina lysis , dipst ick Specific Panora 1.030 Not Available [address], [address], 12/07/2023 17:38:34 12/07/19 24 12/07/2023 urina lysis , dipst ick Ketone Negati ve Not Available [address], [address], 12/07/2023 17:38:34 12/07/19 24 12/07/2023 urina lysis , dipst ick Bilirubin Modera te Not Available [address], [address], 12/07/2023 17:38:34 12/07/19 24 12/07/2023 urina lysis , dipst ick Glucose Negati ve Not Available [address], [address], 12/07/2023 17:38:34 12/07/19 24 12/07/2023 urina lysis , dipst ick Appearance Clear Not Available [address], [address], 12/07/2023 17:38:34 12/07/19 24 12/07/2023 urina lysis , dipst ick Color Dark Yellow Not Available [address], [address], 12/07/2023 17:38:34 01/07/20 24 01/12/2024 URINE CULTU RE, ROUTI NE urine culture, routine Final report abnormal Not Available [facility] ([facility]) [address] [facility], [place], [address], 01/12/2024 20:07:07 01/07/20 24 01/12/2024 URINE CULTU RE, ROUTI NE result 1 Escher ichia coli abnormal Cefaz foster <=4 ug/mL Cefaz foster with an LEANDRO <=16 predi cts susce ptibi lity to the oral agent s cefac mone, cefdi radha, cefpo doxim e, cefpr ozil, cefur oxime , cepha lexin , and lorac arbef when used for thera py of uncom plica morgan urina ry tract infec tions due to E. coli, Klebs iella pneum oniae , and Prote us mirab ilis. Great er than 100,0 00 colon y formi ng units per mL Not Available [facility] ([facility]) [address] [place], [address], 01/12/2024 20:07:07 01/07/20 24 01/12/2024 URINE CULTU RE, ROUTI NE antimicrobia l susceptibili ty Commen t S = Susce ptibl e; I = Inter media te; R = Resis tant P = Posit bruna; N = Negat bruna MICS are expre ssed in micro grams per mL Antib iotic RSLT# 1 RSLT# 2 RSLT# 3 RSLT# 4 Amoxi cilli n/Cla vulan ic Acid S Ampic illin S Cefep selena S Ceftr iaxon e S Cefur oxime S Cipro floxa chrissy S Ertap enem S Genta micin S Imipe nem S Levof loxac in S Merop enem S Nitro furan toin R Piper acill in/Ta zobac nur S Tetra cycli ne S Tobra mycin S Trime thopr im/Ny lfa S Not Available [facility] ([facility]) [address] [place], [address], 01/12/2024 20:07:07 01/07/20 24 01/07/2024 urina lysis , dipst ick Leukocytes Small Not Available [address], [address], 01/07/2024 13:29:38 01/07/20 24 01/07/2024 urina lysis , dipst ick Nitrite positi ve Not Available [address], [address], 01/07/2024 13:29:38 01/07/20 24 01/07/2024 urina lysis , dipst ick Urobilinogen 1 Not Available [address], [address], 01/07/2024 13:29:38 01/07/20 24 01/07/2024 urina lysis , dipst ick Protein Trace Not Available [address], [address], 01/07/2024 13:29:38 01/07/20 24 01/07/2024 urina lysis , dipst ick pH 6.0 Not Available [address], [address], 01/07/2024 13:29:38 01/07/20 24 01/07/2024 urina lysis , dipst ick Blood Negati ve Not Available [address], [address], 01/07/2024 13:29:38 01/07/20 24 01/07/2024 urina lysis , dipst ick Specific Panora 1.025 Not Available [address], [address], 01/07/2024 13:29:38 01/07/20 24 01/07/2024 urina lysis , dipst ick Ketone Trace Not Available [address], [address], 01/07/2024 13:29:38 01/07/20 24 01/07/2024 urina lysis , dipst ick Bilirubin Negati ve Not Available [address], [place], [address], 01/07/2024 13:29:38 01/07/20 24 01/07/2024 urina lysis , dipst ick Glucose Negati ve Not Available [address], [place], [address], 01/07/2024 13:29:38 01/07/20 24 01/07/2024 urina lysis , dipst ick Appearance Slight ly Cloudy Not Available [address], [address], 01/07/2024 13:29:38 01/07/20 24 01/07/2024 urina lysis , dipst ick Color Dark Yellow Not Available [address], [place], [address], 01/07/2024 13:29:38 11/02/19 24 11/01/2023 LDCT, chest , for lung cance r wilbere stew No observ ation record ed. [email or web address] [facility] [address], [place], [address], 11/06/2023 09:23:52 11/02/19 24 11/01/2023 MAMMO , jensen mathias, digit al, bilat eral No observ ation record ed. [email or web address] [facility] (Central Scheduling) [address], [place], [address], 11/06/2023 09:23:25 12/12/19 24 12/11/2023 US, breas t, unila teral , limit ed [facility] [address] [place] [address] Phone: Fax: Name: PRICE MCCLELLAN Exam Date: 12/11/19 : 1949 Age 73 years Gender : F Access ion: [id number] Physic gayla: ALEC OCAMPO Facili ty: [facility] Facili ty HSV: Outpat ient Exam: US BREAST LIMITE D LT Exam: Left Breast Ultras ound Clinic al indica tion: Palpab le left breast lump Compar sarkis:N one TECHNI QUE: Target ed ultras ound assess ing núñez-s dana and color flow perfor med. FINDIN GS: Left breast , within the cleava ge, 12 cm from the nipple , within the area of concer n, there is a circum scribe d, parall el hypoec hoic mass measur ing 8 x 2 mm. This appear s within the dermis and is most sugges tive of a sebace ous cyst. IMPRES SAMMI: Probab le area of concer n corres ponds to a probab le dermal lesion likely a sebace ous cyst measur ing up to 8 mm. Recomm endati on: Mammog graciela recomm ended at this time for full evalua tion of patien t's sympto ms. ACR BI-RAD S: Catego ry 0: Incomp lete-n eeds additi onal imagin g evalua tion Electr onical ly signed by: Jann Tripathi MD 2023 05:00 PM EDT RP Workst ation: [id number] Dictat ed By: Jann Tripathi Transc ribed By: Transc ribed On: 12/11/19 2:48 PM Electr onical ly signed by: Jann Tripathi 12/11/19 Thank you for referr ing CARLEY MCCLELLAN ET to [facility]. Legall y authen ticate d by MONI CARCAMO MD 12-10 14:48: 29 CC'ed Logic: Orderi ng Provid er: CLINT MICHAEL CC Provid er: CLINT MICHAEL Attend ing Provid er: CLINT MICHAEL Referr ing Provid er: CLINT MICHAEL Admitt ing Provid er: CLINT MICHAEL [email or web address] [facility] (Radiology) [address] , [place], [address], 04/22/2024 10:58:04 12/12/19 24 12/11/2023 US, breas t, unila teral No observ ation record ed. [email or web address] [facility] ([facility]) [address] , [place], [address], 12/12/2023 17:33:01 01/08/20 24 MAMMO , scree stew, digit al, bilat eral No observ ation record ed. [email or web address] [facility] (Central Scheduling) [address] , [place], [address], 01/08/2024 16:35:58 Result Notes None recorded. Problems Name Problem SNOMED Code Status Onset Date Resolution Date Notes Provider Name and Address Organization Details Recorded Time Pyrexia of unknown origin 1612698 Active 2020 Problem Code: R50.9; Problem Code Type: ICD-10; Not Available [facility] 21:09:49 Cough 07428848 Completed 202001/14/2021 Problem Code: R05; Problem Code Type: ICD-10; Not Available [facility] 21:09:49 Otitis externa of left ear 80524052230 71824 Completed 202004/26/2022 Problem Code: H60.332; Problem Code Type: ICD-10; IVANIA GRANT null, [employer] 3 14:06:31 Acute serous otitis media of bilatera l ears 04600181748 97486 Completed 202004/26/2022 Problem Code: H65.03; Problem Code Type: ICD-10; IVANIA ZULETANEAR null, [employer] 3 14:06:31 Obstruct ion of Eustachi an tube 75805388 Completed 202004/26/2022 IVANIA MERLYNFRANCES honeycutt, [employer] 3 14:06:31 Streptoc occal sore throat 42617431 Completed 202201/07/2024 Laya Dumont NP [address] [place] [address], [address] , [employer] 4 13:40:04 Acute upper respirat ory infectio n 61237105 Completed 202201/07/2024 Laya Dumont NP [address] [place] [address], [address] , [employer] 13:39:50 Moderate recurren t major depressi on 19133881 Active 2023 Laya Dumont NP [address] [place] [address], [address] , [employer] 4 13:40:01 Vitamin D deficien cy 40981597 Active 2023 Laya Dumont NP [address] [place] [address], [address] , [employer] 4 13:40:07 Mixed hyperlip idemia 455757337 Active 2023 Laya Dumont NP [address] [place] [address], [address] , [employer] 4 13:39:58 [facility] hyperten sammi 58758683 Active 2023 Laya Dumont NP [address] [place] [address], [address] , [employer] 4 13:39:56 Chronic obstruct bruna pulmonar y disease 24651553 Active 2023 Laya Dumont NP [address] [place] [address], [address] , [employer] 4 13:44:39 Acute exacerba tion of chronic obstruct bruna pulmonar y disease 079608544 Active 2023 Laya Dumont NP [address] [place], [address] , [employer] 4 13:47:09 Urinary symptoms 044355421 Active 2023 Laay Dumont NP [address] [place], [address] , [employer] 4 13:50:04 Diabetes mellitus 06879338 Active 2024 Nereyda Caba PA-C [address] [place], [address] , [employer] 5 17:45:38 Problem Notes None recorded. Medical Equipment None Reported. Allergies No known drug allergies Medications Name Sig Start Date Stop Date Status Note LastModified by Organization Details LastModified Time amoxicillin 500 mg capsule Take 1 capsule every 12 hours by oral route for 10 days. 09/27 completed Not Available Not Available Not Available atorvastati n 40 mg tablet Take one tab by oral route at bedtime active Not Available Not Available No t Available methocarbam ol 500 mg tablet Take 1 tablet 4 times a day by oral route. 06/27 completed Not Available Not Available Not Available betamethaso ne valerate 0.1 % topical ointment active Not Available Not Available Not Available primidone 50 mg tablet TAKE ONE TABLET BY MOUTH THREE TIMES A DAY active Not Available Not Available No t Available bupropion HCl SR 150 mg tablet,12 hr sustained-r elease TAKE ONE TABLET BY MOUTH TWICE A DAY active Not Available Not Available No t Available nystatin 100,000 unit/mL oral suspension Take 5 mL 4 times a day by oral route for 7 days. 05/08 completed Not Available Not Available Not Available albuterol sulfate 2.5 mg/3 mL (0.083 %) solution for nebulizatio n Inhale 3 mL 3 times a day by nebulizat ion route. active Not Available Not Available No t Available azithromyci n 250 mg tablet take 2 tablets (500 mg) by oral route once daily for 1 day then 1 tablet (250 mg) by oral route once daily for 4 days 05/08 completed Not Available Not Available Not Available fluconazole 150 mg tablet TAKE ONE TABLET BY MOUTH EVERY DAY FOR THREE DAYS. 02/05 completed Not Available Not Available Not Available famotidine 40 mg tablet TAKE ONE TABLET BY MOUTH TWICE A DAY active Not Available Not Available No t Available prednisone 20 mg tablet Take 2 tablets every day by oral route with meal(s) for 3 days. active Not Available Not Available No t Available sertraline 100 mg tablet TAKE ONE TABLET BY MOUTH EVERY DAY active Not Available Not Available No t Available ciprofloxac in 500 mg tablet Take 1 tablet every 12 hours by oral route for 7 days, for UTI. active Not Available Not Available No t Available tramadol 50 mg tablet 06/27 completed Not Available Not Available Not Available acetaminoph en 500 mg tablet TAKE ONE TABLET BY MOUTH EVERY 4 HOURS TO EVERY 6 HOURS NEEDED active Not Available Not Available No t Available amlodipine 10 mg tablet TAKE ONE TABLET BY MOUTH EVERY DAY active Not Available Not Available No t Available pantoprazol e 40 mg tablet,maurice yed release take 1 tablet (40 mg) by oral route once daily 04/26 completed Not Available Not Available Not Available lisinopril 10 mg tablet take 1 tablet (10 mg) by oral route once daily 04/26 completed Not Available Not Available Not Available omeprazole 20 mg capsule,del ayed release TAKE ONE CAPSULE BY MOUTH EVERY DAY NEEDED FOR GASTROESO PHAGEAL REFLUX DISEASE active Not Available Not Available No t Available gabapentin 100 mg capsule once daily 08/05 completed Not Available Not Available Not Available ergocalcife rol (vitamin D2) 1,250 mcg (50,000 unit) capsule Take one capsule by oral route monthly 01/06 completed Not Available Not Available Not Available albuterol sulfate HFA 90 mcg/actuati on aerosol inhaler Inhale 2 puffs every 4 hours by inhalatio n route. 2023 active Not Available Not Available Not Avai lable betamethaso ne dipropionat e 0.05 % topical ointment APPLY A THIN LAYER TOPICALLY TO THE AFFECTED AREA(S) ONCE DAILY active Not Available Not Available No t Available bromphenira mine-pseudo ephedrine-D M 2 mg-30 mg-10 mg/5 mL oral syrup Take 10 mL every 4 hours by oral route. 09/27 completed Not Available Not Available Not Available ondansetron 4 mg disintegrat ing tablet 09/27 completed Not Available Not Available Not Available sertraline 50 mg tablet Take 1 tablet every day by oral route. 09/27 completed Not Available Not Available Not Available colestipol 1 gram tablet Take one tab by oral route twice daily active Not Available Not Available No t Available amoxicillin 875 mg-potassiu m clavulanate 125 mg tablet take 1 tablet by oral route every 12 hours x 7 days active Not Available Not Available No t Available oxycodone 5 mg tablet 06/27 completed Not Available Not Available Not Available valsartan 40 mg tablet TAKE ONE TABLET BY MOUTH EVERY DAY active Not Available Not Available No t Available Ciprodex 0.3 %-0.1 % ear drops,suspe nsion instill 4 drops into left ear(s) by otic route 2 times per day for 7 days 04/26 completed Not Available Not Available Not Available metoprolol tartrate 25 mg tablet TAKE ONE TABLET BY MOUTH TWICE A DAY active Not Available Not Available No t Available nitrofurant oin monohydrate /macrocryst als 100 mg capsule take 1 capsule by mouth twice a day active Not Available Not Available No t Available budesonide- formoterol HFA 160 mcg-4.5 mcg/actuati on aerosol inhaler Inhale 2 puffs twice a day by inhalatio n route. active Not Available Not Available No t Available cholecalcif cathleen (vitamin D3) 1,250 mcg (50,000 unit) capsule Take 1 capsule every week by oral route for 90 days. 2022 active Not Available Not Available Not Avai lable fenofibrate 40 mg tablet active Not Available Not Available Not Available Mucus Relief ER 600 mg tablet, extended release Take 1 tablet every 12 hours by oral route 05/08 completed Not Available Not Available Not Available Vitamin D3 125 mcg (5,000 unit) tablet Take one tablet by oral route once daily 01/06 completed Not Available Not Available Not Available fluticasone furoate 100 mcg-vilante rol 25 mcg/dose inhalation powder inhale 1 puff by inhalatio n route once daily at the same time each day 04/26 completed Not Available Not Available Not Available cyanocobala min (vit B-12) 1,[address] every day by sublingua l route. 01/06 completed Not Available Not Available Not Available albuterol sulf 90 mcg/actuati on breath activated powder inhaler,sen sor Inhale 2 puffs every 4 hours by inhalatio n route. 01/06 completed Not Available Not Available Not Available Trelegy Ellipta 200 mcg-62.5 mcg-25 mcg powder for inhalation Inhale 1 puff every day by inhalatio n route. active Not Available Not Available No t Available Vitals Date Recorded Body height Heart rate Oxygen saturation Oxygen saturation in Arterial blood by Pulse oximetry Body mass index (BMI) Body weight Body temperature Systolic And Diastolic Provider Name and Address Organization Details Last Updated DateTime 4 165.1 cm 62 /min 95 % 95 % 41.2 kg/m2 629008. 75 g 97 [degF] 127/76 mm[Hg] [employer] 4 10:36:34 Date Recorded Body height Body mass index (BMI) Body weight Body temperature Heart rate Oxygen saturation Oxygen saturation in Arterial blood by Pulse oximetry Systolic And Diastolic Provider Name and Address Organization Details Last Updated DateTime 4 165.1 cm 41.2 kg/m2 115347. 19 g 98 [degF] 66 /min 96 % 96 % 126/66 mm[Hg] [employer] 4 16:36:27 Date Recorded Body height Body mass index (BMI) Body weight Body temperature Heart rate Oxygen saturation Oxygen saturation in Arterial blood by Pulse oximetry Systolic And Diastolic Provider Name and Address Organization Details Last Updated DateTime 4 165.1 cm 40.9 kg/m2 788904. 29 g 98 [degF] 70 /min 95 % 95 % 111/67 mm[Hg] [employer] 4 10:59:48 Date Recorded Body height Body mass index (BMI) Body weight Body temperature Heart rate Oxygen saturation Oxygen saturation in Arterial blood by Pulse oximetry Systolic And Diastolic Provider Name and Address Organization Details Last Updated DateTime 4 165.1 cm 41.1 kg/m2 697877. 03 g 98.2 [degF] 75 /min 95 % 95 % 114/64 mm[Hg] IVANIA GRANT [employer] 4 17:28:05 Date Recorded Body height Body mass index (BMI) Body weight Heart rate Oxygen saturation Oxygen saturation in Arterial blood by Pulse oximetry Systolic And Diastolic Provider Name and Address Organization Details Last Updated DateTime 4 165.1 cm 41.6 kg/m2 881287. 79 g 66 /min 95 % 95 % 137/82 mm[Hg] Leydi Shamar [employer]. 4 13:28:01 Social History Question Answer Notes LastModified by Organizat ion Details LastModified Time Tobacco Smoking Status Former Smoker Lillie honeycutt, [employer]. 05/31/2022 13:35:25 Do You Have An Advance Directive? No Information not available 04/26/2022 Is Your Home Air Conditioned? Yes Information not available 04/26/2022 Are You Blind Or Do You Have Difficulty Seeing? No Information not available 04/26/2022 What Is Your Level Of Caffeine Consumption? Heavy Information not available 06/27/2022 Are You A Caregiver? No Information not available 06/27/2022 In The 14 Days Before Symptom Onset, Have You Had Close Contact With A Laboratory-confir med COVID-19 While That Case Was Ill? No Information not available 04/26/2022 In The 14 Days Before Symptom Onset, Have You Had Close Contact With A Person Who Is Under Investigation For COVID-19 While That Person Was Ill? No Information not available 04/26/2022 Have You Been To An Area Known To Be High Risk For COVID-19? No Information not available 04/26/2022 Are You Deaf Or Do You Have Serious Difficulty Hearing? No Information not available 04/26/2022 What Type Of Diet Are You Following? REGULAR Information not available 04/26/2022 Have There Been Any Changes To Your Family Or Social Situation? No Information no t available 04/26/2022 When Did You Quit Smoking? 1-5yearssin celastcigar ette Information not available 04/26/2022 Are There Any Guns Present In Your Home? No Information not available 04/26/2022 Which Of Your Hands Is Dominant? Right Information not available 06/27/2022 Do You Have A Medical Power Of [employer]? No Information not available 04/26/2022 What Was The Date Of Your Most Recent Tobacco Screening? 01/07/2024 [email or web address] Information not available 01/07/2024 What Is Your Current Pack Years? 20-packye ars Information not available 08/06/2023 Do You Have Any Pets? No Information not available 06/27/2022 What Is Your Relationship Status? Information not available 04/26/2022 Do You Use Your Seat Belt Or Car Seat Routinely? Yes Information not available 04/26/2022 Are You Sexually Active? No [email or web address] Information not available 01/07/2024 Do You Have Smoke And Carbon Monoxide Detectors In Your Home? Yes Information not available 04/26/2022 Are You Passively Exposed To Smoke? No Information no t available 04/26/2022 Are There Any Smokers In Your House? No Information not available 04/26/2022 Do You Participate In Social Media? Yes Information not available 06/27/2022 Do You Use Sunscreen Routinely? No Information not available 04/26/2022 Has Tobacco Cessation Counseling Been Provided? No Information not available 04/26/2022 Have You Recently Traveled Abroad? No Information not available 04/26/2022 Do You Have Difficulty Walking Or Climbing Stairs? Yes Fractured Right Shoulder Information not available 04/26/2022 Are You Currently In School? No Information not available 04/26/2022 Do You Have Any Dietary Restrictions? No Information not available 04/26/2022 Sex: Female Functional Status Question Answer Note LastModified by Organizat ion Details LastModified Time Do you use any illicit or recreational drugs? No Information not available 04/26/2022 Do you or have you ever used any other forms of tobacco or nicotine? No Information not available 04/26/2022 What is your level of alcohol consumption? None Information not available 04/26/2022 Are you currently employed? No Information not available 04/26/2022 Do you have transportation difficulties? No Information not available 06/27/2022 Are you able to walk independently without assistance or assistive devices? YESWOREST Information not available 06/27/2022 Do you have difficulty doing errands alone? No Information not available 06/27/2022 Are you able to care for yourself independently? Yes Information not available 04/26/2022 Do you have difficulty dressing, bathing, grooming, or toileting? Yes Information not available 04/26/2022 Mental Status Question Answer Note LastModified by Organizat ion Details LastModified Time Do you feel stressed (tense, restless, nervous, or anxious, or unable to sleep at night)? [id number] Information not available 06/27/2022 Do you have difficulty concentrating, remembering or making decisions? No Information no t available 04/26/2022 Family History Relationship Description Onset Age of this Age Resolved Age Notes LastModified by Organization Details LastModified Time Unspecified Relation Family history of Hypertension [email or web address] Not available 13:35:15 Medical History Condition Response Hospitalizations N Acid Reflux (GERD) Y Emergency room visit since last appointm ent. N Hypertension Y Kidney Disease Y Gynecological History Statement/Question Response Date of Last Pap Smear Most Recent Mammogram Obstetrics History GPAL:G 0 P 0 0 0 0 Immunizations Vaccine Type Date Status Note Provider Nam e and Address Organization Details Recorded Time Influenza, high-dose, quadrivalent, PF 02/05/2023 completed Alec Ocampo APRN [address] [place], [address], [facility] 02/05/2023 17:52:56 Influenza, split virus, quadrivalent, PF 01/14/2021 completed Not Available [employer] 23:30:25 COVID-19 vaccine, vector-nr, rS-Ad26, PF, 0.5 mL 03/10/2021 completed Lillie honeycutt [facility] 05/31/2022 13:35:04 Past Encounters Encounter ID Performer Location Encounter Start Date Encounter Closed Date Diagnosis/Indication Diagnosis SNOMED-CT Code Diagnosis ICD10 Code Diagnosis IMO Codes Diagnosis Note [id number] [id number] 04/26/2022 13:36:01 04/26/2022 15:47:40 Chronic obstructive pulmonary disease 03517277 J44.9 Essential hypertension 68297545 I10 DASh diet, check and record B daily, emphasized med compliance Moderate r ecurrent major depression 00026619 F33.1 Increase zoloft to 100 mg daily History of hemorrhagic cerebrovascular accident with residual deficit 6637801215 42489 Z86.79 Gastroesop hageal reflux disease without esophagitis 635387992 K21.15 June 2021 - Right occipital and temporal hemorrhagi c CVA with left residual visual deficit [id number] Alec Ocampo [address] [id number] 06/27/2022 08:14:28 06/27/2022 09:53:37 Essential hypertension 41186645 I10 DASH diet, check and record BP daily, emphasized med compliance Mixed hyperlipidemia 267 369704 E78.2 Chronic ob structive pulmonary disease 32892219 J44.9 Moderate r ecurrent major depression 34784785 F33.1 Vitamin D deficiency 347 56468 E55.9 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 Irritable bowel syndrome with diarrhea 306276702 K58.0 Trial Colostid daily Gastroesop hageal reflux disease without esophagitis 303813208 K21.9 Continue Omeprazole and add famotidine [id number] YAHIR CORDOVA, TIPPLE TENDER-[address] [address] 08/30/2022 16:38:17 08/30/2022 17:31:29 Cough 01821315 R05.9 Acute uppe r respiratory infection 91363304 J06.9 [id number] Alec Ocampo [address] 0 09/27/2022 10:56:31 09/27/2022 12:08:12 Adult health examination 228004113 Z00.00 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 Reviewed good vulvar/vag inal hygiene and ways to reduce symptoms. Advised to call if treatment is not helpful or if symptoms persist or recur. [id number] Alec Ocampo [place] [address] 02/05/2023 16:50:11 02/05/2023 17:26:18 Administration of influenza vaccine 32741795 Z23 Essential hypertension 39192897 I10 DASH diet, check and record BP daily, emphasized med compliance . No med changes today. [id number] Alec Ocampo[address] 0 04/10/2023 10:26:22 04/10/2023 11:20:04 Cough 23506164 R05.9 Acute exac erbation of chronic obstructive pulmonary disease 922792217 J44.1 Cough The patient presents wet cough. The patient's condition is worsening. Based on the findings today we will begin medication therapy. Reviewed symptomati c care instructio ns, the expected course of these illnesses and explained that coughing can persist for some time. Provided precaution s for signs of worsening disease and instructio ns on contacting us if symptoms worsen. [id number] Alec Ocampo [address] [address] 05/08/2023 16:21:13 05/08/2023 17:21:57 Essential hypertension 37468083 I10 DASH diet, check and record BP daily, emphasized med compliance . No med changes today. Moderate r ecurrent major depression 70291410 F33.1 Continue Zoloft Body mass index 40+ - severely obese 845216999 Z68.41 [id number] Alec Ocampo [facility] [address] [place] [id number] 08/06/2023 10:21:55 08/06/2023 11:30:12 Essential hypertension 15424268 I10 DASH diet, check and record BP daily, emphasized med compliance . No med changes today. Mixed hyperlipidemia 267 910537 E78.2 Continue atorvastat in and low fat diet. Vitamin D deficiency 347 22817 E55.9 Moderate r ecurrent major depression 80523710 F33.1 Continue Zoloft Chronic ob structive pulmonary disease 32607739 J44.9 Continue inhaler regimen. Gastroesop hageal reflux disease without esophagitis 556918118 K21.9 Continue Omeprazole and famotidine Body mass index 40+ - severely obese 993163616 Z68.41 Screening for malignant neoplasm of respiratory tract 141547340 Z12.2 Former smoker. Screening mammography of bilateral breasts 7943835316 35109 Z12.31 Screening for malignant neoplasm of colon 835118452 Z12.11 Essential tremor 3741663 09 G25.0 [id number] [facility] [place] [address] [place] [id number] 12/07/2023 16:53:53 12/07/2023 18:04:47 Adult health examination 241458590 Z00.00 Patient presented to office today for their Medicare Annual Wellness Visit. Education was provided on healthy nutrition, including a diet rich in fruits and vegetables , minimizing simple carbohydra audrey, salt, and saturated fats. Encouraged regular cardiovasc ular exercise such as walking at least 30 minutes daily, 5 times per week. Emphasized preventive health measures and educated pt on fall prevention and community- based lifestyle interventi ons to help reduce health risks and promote healthy living. Dysuria 90631234 R30.0 Eczema 15784349 L30.9 Essential hypertension 73877782 I10 DASH diet, check and record BP daily, emphasized med compliance . Refill moetoprolo l. Acute urin kendall tract infection 187325875 N39.0 Patient presents with symptoms of UTI. Results of dipstick were positive for UTI. Advised to drink clear fluids, reduce sexual activity, Tylenol for pain and take prescribed medication s as instructed . Patient encouraged to follow up within 1 week if not improving. Body mass index 40+ - severely obese 269522191 Z68.41 [id number] Laya Dumont NP [place] [id number] 01/07/2024 12:56:31 01/07/2024 14:05:06 Body mass index 40+ - severely obese 790514217 Z68.41 Urinary symptoms 3689497 08 R39.9 Acute exac erbation of chronic obstructive pulmonary disease 750570112 J44.1 Health Concerns Section Related Observation LastModified by Organization Detai ls LastModified Time None Recorded Concern Status LastModified by Organization Details LastModified Time None Recorded Advance Directives Directive N: Payers Insurance Date Sequence Insurance Name Policy Number Policy La Covered Member ID La Member ID Guarantor Name 04/04/2024 [place] [employer] - [facility] Luz Melgar [id number] Luz Melgar 04/04/2024 1 [place]MEDICARE RE[place]ACEMENT HMO) [id number] Luz Melgar [id number] [address] Melgar 12/07/2023 1 [place]/AD VANTAGE - HMO) [id number] Luz Melgar [id number] Luz Ramón 12/07/2023 1 [place] Luz Melgar [id number] Luz Melgar Notes Date Note Type Note Provider Name and Address Organization Details Recorded Time 4 text/htm l CoughReported by PatientHPIFor severity, patient reportsworseningandpain with coughbut reportsmoderate. For context, patient reportssmoker(has copd - has lost her nebulizer unit and ran out of trelegy inhaler). For associated symptoms, patient reportswheezing,sputum production,shortness of breath,throat clearing,nasal discharge,tiredness, anddyspneabut reportsno fever,no chills,no chest pain,no heartburn,no nausea,no vomiting,no edema, andno agitation. For quality, patient reportsproductive. For duration, patient reportsconstantandacute (<3 weeks)(1 week). For onset/timing, patient reportsgradualandbecomes worse as the day goes on. For modifying factors, patient reportsotc medicationandinhaler.ROS as noted in the HPI Alec Ocampo, [employer] STRINGER [address] [place], [address], [facility] 04/10/2023 12:42:35 4 text/htm l Anxiety/DepressionReported by PatientHPIFor context, patient reportsrecent medical eventandfamily problems. For associated symptoms, patient reportshtnbut reportsdenies homicidal ideations,no significant weight gain,no significant weight loss,no visual/auditory hallucinations,no delusions,no shortness of breath,mood good,no anxiety,no crying spells,no panic, andno isolation. For severity, patient reportsdenies suicidal ideations,able to maintain relationships,does not interfere with activities of daily living, andsymptoms improved. For duration, patient reportschronic. For onset/timing, patient reportsgradual. For modifying factors, patient reportssocial supportandselective serotonin reuptake inhibitor (ssri).Mood is improved. She is getting out, cooking, reading. Hypertension F/UReported by PatientHPIFor lifestyle, patient reportsnot exercising regularlyanddoes not adhere to low sodium diet. For associated symptoms, patient reportsedema (trace)andvisual disturbancesbut reportsno dizziness,no lightheadedness,no chest pain,no shortness of breath,no palpitations,no calf pain with exertion, andno headache. For medications, patient reportstaking medications as directed,no side effects from medication, andchecks blood pressure at home, range: (135/85).ROS as noted in the HPI Alec Ocampo, SEQUINS STRINGER [address] [facility], [place], [address], [facility] 05/13/2023 21:35:26 4 text/htm l Anxiety/DepressionReported by PatientHPIFor context, patient reportsrecent medical eventandfamily problems. For associated symptoms, patient reportshtnbut reportsdenies homicidal ideations,no significant weight gain,no significant weight loss,no visual/auditory hallucinations,no delusions,no shortness of breath,mood good,no anxiety,no crying spells,no panic, andno isolation. For severity, patient reportsdenies suicidal ideations,able to maintain relationships,does not interfere with activities of daily living, andsymptoms improved. For duration, patient reportschronic. For onset/timing, patient reportsgradual. For modifying factors, patient reportssocial supportandselective serotonin reuptake inhibitor (ssri).Mood is improved. She is getting out, cooking, reading. HyperlipidemiaReported by PatientHPIFor duration, patient reportschronic. For control, patient reportsnot at goal. For adherence to treatment plan, patient reportsdoes not follow recommended dietanddoes not exercisebut reportstakes medications as prescribed. For complications, patient reportscardiovascular disease. For risk factors, patient reportshypertension,obesity, andconsumption of saturated fats and trans-fatty acids. Hypertension F/UReported by PatientHPIFor lifestyle, patient reportsnot exercising regularlyanddoes not adhere to low sodium diet. For associated symptoms, patient reportsedema (trace)andvisual disturbancesbut reportsno dizziness,no lightheadedness,no chest pain,no shortness of breath,no palpitations,no calf pain with exertion, andno headache. For medications, patient reportstaking medications as directed,no side effects from medication, andchecks blood pressure at home, range: (135/85). COPDReported by PatientHPI:For aggravating factors, patient reportsworse with exertion. For associated symptoms, patient reportsdyspnea during exertion,decrease in exercise capacity,fatigue,large amounts of clear sputum,depression, andobesity. For duration, patient reportschronic,has noted for years, andattacks are infrequent. For severity, patient reportsmild. For context, patient reportscigarette smoking. For alleviating factors, patient reportsrelieved with restandrelieved with bronchodilator.ROS as noted in the HPI Has stage 3 b CKD, vitamin D deficiency, and essential tremor. Alec Ocampo, SEQUINS STRINGER [address] [facility], [place], [address], [facility], [employer] 08/07/2023 17:45:03 4 text/htm l Annual WellnessReported by PatientSocial/Behavioral HistoryFor fracture risk, patient reportshistory of fractures. For physical activity, patient reportsdoes not exercise on a regular basisbut reportsdiscussed weightbearing activities. For diet and nutrition, patient reportsdiscussed vitamin and supplement use,discussed portion control, anddiscussed diet improvement. For additional lifestyle factors, patient reportsno tobacco useandno alcohol intake.Mental Status:For depression risk, patient reportshistory of depressionbut reportsno loss of interest in activities,no significant changes in weight,no sleep disturbances or insomnia,no agitation,no loss of energy,no feelings of worthlessness or guilt, andno thoughts of suicide.Functional AbilityFor vision, patient reportsworsening depth perception. For hearing, patient reportsno loss of hearing. Hypertension F/UReported by PatientHPIFor lifestyle, patient reportsnot exercising regularlybut reportslimits sodium intake. For medications, patient reportstaking medications as directedandno side effects from medication. For associated symptoms, patient reportsno dizziness,no lightheadedness,no chest pain,no shortness of breath,no palpitations,no edema,no calf pain with exertion, andno headache. Lower Urinary Tract Symptoms (LUTS)Reported by PatientHPIFor associated symptoms, patient reportsurgency,frequency, anddysuriabut reportsno abdominal pain,no groin pain,no pelvic pain,no flank pain,no low back pain,no chills,no fever,no constipation,no diarrhea,no nausea,no vomiting, andno temperaure. For severity, patient reportsmoderate. For onset/timing, patient reports4-10 times a day. For duration, patient reportsacuteand2-3 weeks. For context, patient reportsdenies excessive fluid intake,denies excessive caffeine intake, anddenies new medication treatment.ROS as noted in the HPI Alec Ocampo APRN [address] [place], [address], [employer] [employer]. 12/09/2023 17:02:25 4 text/htm l Patient presents for urinary symptoms and cough. States she was prescribed macrobid and it helped some, but she only took 2/3rds of abx and the symptoms ended up coming back but she is not sure when. States she has bladder spasms without burning, but she is unsure how long it has been going on.States she has had a cough and sore throat that started about 3 days ago. States it felt like it started in her chest and it was burning in her chest. States the cough has improved. She has been taking nyquil. States she slept all day yesterday. She used her nebulizer and taken mucinex as well. She has been taking tylenol for [place]. She has not had a fever. No exposure to COVID/flu known. Some right ear pain as well. States she does have COPD and she is a little more short of breath. She is coughing up a lot of sputum for the last three days well. Laya Dumont NP [address] [place], [address], [employer] 01/07/2024 16:13:15 OBGyn Episode No OBEpisode recorded.
--- OUTSIDE RECORDS SUMMARY | 2025-01-27 18:21 | XMS_ITS | Clinical Summary ---
Author Organization [facility] Address [address] [place] [address] Care Team Providers Care Commercial Property Administrator Name Role Phone Pcp, No Primary Care Provider Unavailabl e Allergies No known active allergies Medications methocarbamol (Robaxin) 500 MG tablet Take 1 tablet (500 mg total) by mouth 4 (four) times a day if needed for muscle spasms for up to 10 days. 20 tablet 3 Active aspirin 81 MG EC tablet Take 1 tablet (81 mg) by mouth 1 (one) time each day. Active Fluticasone-Ume clidin-Vilant (Trelegy Ellipta) 200-62.5-25 MCG/ACT aerosol powder Trelegy Ellipta 200-62.5-25 MCG/ACT Inhalation Aerosol Powder Breath Activated QTY: 0 Days: 0 Refills: 0 Written: 02/14/22 Patient Instructions: 2 Active Albuterol Sulfate powder Albuterol Sulfate Powder QTY: 0 Days: 0 Refills: 0 Written: 02/14/22 Patient Instructions: 2 Active tiotropium-olod aterol (Stiolto Respimat) 2.5-2.5 MCG/ACT aerosol solution inhaler Inhale 2 Inhalations 1 (one) time each day. Active primidone (Mysoline) 50 MG tablet Primidone 50 MG Oral Tablet QTY: 270 Days: 90 Refills: 0 Written: 01/26/22 Patient Instructions: 2 Active buPROPion SR (Wellbutrin SR) 150 MG 12 hr tablet 3 Active sertraline (Zoloft) 100 MG tablet 3 Active atorvastatin (Lipitor) 40 MG tablet Take 1 tablet (40 mg) by mouth 1 (one) time each day. Active colestipol (Colestid) 1 g tablet 3 Active valsartan (Diovan) 40 MG tablet Valsartan 40 MG Oral Tablet QTY: 90 Days: 90 Refills: 0 Written: 02/08/22 Patient Instructions: 2 Active metoprolol tartrate (Lopressor) 25 MG tablet 3 Active amLODIPine (Norvasc) 10 MG tablet amLODIPine Besylate 10 MG Oral Tablet QTY: 90 Days: 90 Refills: 0 Written: 02/04/22 Patient Instructions: 2 Active famotidine (Pepcid) 40 MG tablet 3 Active omeprazole (PriLOSEC) [address] capsule 3 Active Immunizations Immunization Administration Dates Next Due PPD Skin Test (TB Skin Test) 07/19/2001 Social History Tobacco Use Types Packs/Day Years Used Date Smoking Tobacco: Former Cigarettes Smokeless Tobacco: Never Tobacco Cessation:Counseling Given: Not Answered Alcohol Use Standard Drinks/Week Comments Not Currently 0 (1 standard drink = 0.6 oz pur e alcohol) Comments Unknown Sex and Gender Information Value Date Recorded Sex Assigned at Not on file Legal Sex Female 8:34 PM EDT Gender Identity Not on file Sexual Orientation Not on file Last Filed Vital Signs Vital Sign Reading Time Taken Comments Blood Pressure 112/68 01/09/2023 1:26 PM EDT Pulse 67 04/22/2022 2:29 AM EST Temperature 36.5 C (97.7 F) 04/22/2022 2:29 AM EST Respiratory Rate 18 04/21/2022 10:38 PM EST Oxygen Saturation 99% 04/22/2022 2:29 AM EST Inhaled Oxygen Concentration - - Weight 112 kg (248 lb) 01/09/2023 1:26 PM EDT Height 162.6 cm (5' 4 ) 01/09/2023 1:26 PM EDT Body Mass Index 42.57 01/09/2023 1:26 PM EDT Plan of Treatment Health Maintenance Due Date Last Done Comments [facility]-Bone Density Scan 1950 [facility]-Depression Screening 1950 [facility]-Hepatitis C Screening 1950 [facility]-Medicare Annual Wellness (AWV) 1950 [facility]-Infant/Child/Adol SDOH Screenings 1950 [facility]- SDOH Screenings 1968 [facility]-Adult SDOH Screenings 1968 [facility]-DTaP,Tdap,and Td Vaccine s (1 - Tdap) 1969 CT Colonography 1995 Colonoscopy 1995 FIT-DNA 1995 FIT 1995 FOBT 1995 Sigmoidoscopy 1995 [facility]-Colorectal Cancer Screening 1995 [facility]-Breast Cancer Screening 2000 [facility]-Zoster Vaccines (1 of 2) 2000 [facility]-RSV Vaccine: 60+ Years o r (1 - Risk 60-74 years 1-dose series) 2010 [facility]-Pneumococcal Vaccine: 50 + Years (2 of 2 - PCV20 or PCV21) 01/27/2021 01/28/2020 [id number] Vaccine (2 - season) 2024 06/20/2020 [facility]-Influenza Vaccine (#1) 2024 01/14/2021 [facility]-Obesity Intervention Completed 023, 12/05/2022 HPV Vaccines Aged Out No longer eligi ble based on patient's age to complete this topic [facility]-HIB Vaccines Aged Out No longer e ligible based on patient's age to complete this topic [facility]-Hepatitis A Vaccines Aged Out No longer eligible based on patient's age to complete this topic [facility]-IPV Vaccines Aged Out No longer e ligible based on patient's age to complete this topic [facility]-Rotavirus Vaccines Aged Out No lo nger eligible based on patient's age to complete this topic Insurance [employer] MEDICARE Care Teams Commercial Property Administrator Relationship Specialty Start Date End Date Pcp, Margie [address] [place] [address] PCP - General Family Medicine 04/21/22
--- OUTSIDE RECORDS SUMMARY | 2025-01-27 18:22 | XMS_ITS | Data Portability ---
Author Organization [facility] [place], OFFICE Address [address] [place] [address] Care Team Providers Care Box Repairer Name Role Phone XIAO AKILAH Primary Care Provider [phone] Assessment Encounter Date Assessment Date Assessment LastModified by Organization Details LastModified Time 12/06/2021 12/06/2021 07/28/2021: Seen for hospital f/u x2 for CVA and hypertensive urgency, UTI. D/c w/ Metoprolol T 12.5mg BID, Valsartan-HCTZ 80/12.5 mg which we will continue. We will add Omeprazole and Ondansetron, d/c primidone to decrease polypharmacy. Med rec today. Daughter also present, who is nurse and facilitated discussion on medications and adherence 11/07/2021: Pt states she had bad experience at Dr. Lynn's office regarding his CAR WIPER. She states she did not want to go back but would like to establish with neurologist for memory testing and stroke FU. She never met with Dr. Lynn. Recommended she go to Dr. Lynn one more time to meet him. Pt agreed. 12/06/2021: Telehealth visit to discuss fatigue. Has routine lab follow up scheduled on 01/05/2022. I have ordered those labs today and added B12 and TSH to further evaluate the fatigue [email or web address] Not available 12/06/2021 15:37:57 01/11/2022 01/11/2022 07/28/2021: Seen for hospital f/u x2 for CVA and hypertensive urgency, UTI. D/c w/ Metoprolol T 12.5mg BID, Valsartan-HCTZ 80/12.5 mg which we will continue. We will add Omeprazole and Ondansetron, d/c primidone to decrease polypharmacy. Med rec today. Daughter also present, who is nurse and facilitated discussion on medications and adherence 11/07/2021: Pt states she had bad experience at Dr. Lynn's office regarding his CAR WIPER. She states she did not want to go back but would like to establish with neurologist for memory testing and stroke FU. She never met with Dr. Lynn. Recommended she go to Dr. Lynn one more time to meet him. Pt agreed. 12/06/2021: Telehealth visit to discuss fatigue. Has routine lab follow up scheduled on 01/05/2022. I have ordered those labs today and added B12 and TSH to further evaluate the fatigue 01/11/2022: FU labs. Renal function not improved with hydration. Blood pressure meds adjusted. Recheck kidney function after changes. Will follow up in 2 weeks with BP log. Printed out med list today and wrote description of each med indication. Recheck kidney function a couple of days before appt [email or web address] Not available 01/11/2022 17:45:24 01/25/2022 01/25/2022 07/28/2021: Seen for hospital f/u x2 for CVA and hypertensive urgency, UTI. D/c w/ Metoprolol T 12.5mg BID, Valsartan-HCTZ 80/12.5 mg which we will continue. We will add Omeprazole and Ondansetron, d/c primidone to decrease polypharmacy. Med rec today. Daughter also present, who is nurse and facilitated discussion on medications and adherence 11/07/2021: Pt states she had bad experience at Dr. Lynn's office regarding his CAR WIPER. She states she did not want to go back but would like to establish with neurologist for memory testing and stroke FU. She never met with Dr. Lynn. Recommended she go to Dr. Lynn one more time to meet him. Pt agreed. 12/06/2021: Telehealth visit to discuss fatigue. Has routine lab follow up scheduled on 01/05/2022. I have ordered those labs today and added B12 and TSH to further evaluate the fatigue 01/11/2022: FU labs. Renal function not improved with hydration. Blood pressure meds adjusted. Recheck kidney function after changes. Will follow up in 2 weeks with BP log. Printed out med list today and wrote description of each med indication. Recheck kidney function a couple of days before appt 01/25/2022: FU BP log. She forgot log today but states that BP have been well controlled 115-125 systolic. Repeat BMP ordered but not done. She will be going out of town to [place] for 3 months. She will get BMP blood work prior to leaving. At that visit, we will order routine labs to be done when she returns. She has MRI brain scheduled with Dr. Lynn 01/31/2022. PFT scheduled 01/31/2022. She had colonoscopy 01/2022 [email or web address] Not available 01/25/2022 11:53:01 02/06/2022 02/06/2022 07/28/2021: Seen for hospital f/u x2 for CVA and hypertensive urgency, UTI. D/c w/ Metoprolol T 12.5mg BID, Valsartan-HCTZ 80/12.5 mg which we will continue. We will add Omeprazole and Ondansetron, d/c primidone to decrease polypharmacy. Med rec today. Daughter also present, who is nurse and facilitated discussion on medications and adherence 11/07/2021: Pt states she had bad experience at Dr. Lynn's office regarding his CAR WIPER. She states she did not want to go back but would like to establish with neurologist for memory testing and stroke FU. She never met with Dr. Lynn. Recommended she go to Dr. Lynn one more time to meet him. Pt agreed. 12/06/2021: Telehealth visit to discuss fatigue. Has routine lab follow up scheduled on 01/05/2022. I have ordered those labs today and added B12 and TSH to further evaluate the fatigue 01/11/2022: FU labs. Renal function not improved with hydration. Blood pressure meds adjusted. Recheck kidney function after changes. Will follow up in 2 weeks with BP log. Printed out med list today and wrote description of each med indication. Recheck kidney function a couple of days before appt 01/25/2022: FU BP log. She forgot log today but states that BP have been well controlled 115-125 systolic. Repeat BMP ordered but not done. She will be going out of town to [place] for 3 months. She will get BMP blood work prior to leaving. At that visit, we will order routine labs to be done when she returns. She has MRI brain scheduled with Dr. Lynn 01/31/2022. PFT scheduled 01/31/2022. She had colonoscopy 01/202202/06/2022: F/u BMP, GFR 38 which is a mild improvement. Likely new baseline. Pt will be going to [place] until 04/2022. Routine labs ordered for continued monitoring of chronic conditions for next visit. Not available 02/06/2022 09:36:44 Plan of Treatment Reminders Order Date Submit Date Provider Last Modified By Organization Details Last Modified Time Details Appointments None recorded. Lab BMP, serum or plasma 2021 [employer] [facility], [address] [place] [address], [address], [place], [address], 09:25:53 CMP, serum or plasma 2021 [employer] [facility], [address] [place] [address], [address], [place], [address], 09:25:49 homocystein e, serum or plasma 2021 [employer] [facility], [address] [place] [address], [address], [place], [address], 09:25:53 PTH (parathyroi d hormone), intact + calcium, serum or plasma 2021 [employer] [facility], [address] [place] [address], [address], [place], [address], 09:25:59 TSH, serum or plasma 2021 [employer] [facility], [address] [place] [address], [address], [place], [address], 09:25:50 iron + TIBC + ferritin, serum 2021 [employer] [facility], [address] [place] [address], [address], [place], [address], 09:25:47 vitamin B12 + folate, serum or blood 2021 [facility], [address] [place] [address], [address], [place], [address], 09:25:58 CBC w/ auto diff 2021 [facility], [address] [place] [address], [address], [place], [address], 09:25:48 lipid panel, serum 2021 [facility], [address] [place] [address], [facility] [address], [place], [address], 09:25:52 BMP, serum or plasma 2021 [facility], [address] [place] [address], [facility] [address], [place], [address], 06:38:21 BMP, serum or plasma 2021 [facility], [address] [place] [address], [facility] [address], [place], [address], 08:15:10 CMP, serum or plasma 2021 [facility], [address] [place] [address], [facility] [address], [place], [address], 03:34:00 iron + TIBC + ferritin, serum 2021 [facility], [address] [place] [address], [facility] [address], [place], [address], 03:33:59 CBC w/ auto diff 2021 [facility], [address] [place] [address], [facility] [address], [place], [address], 03:34:00 vitamin B12 + folate, serum or blood 2021 [employer] [facility], [address] [facility], [address], [place], [address], 03:34:01 TSH + free T4, serum 2021 [employer] [facility], [address] [facility], [address], [place], [address], 03:33:59 CMP, serum or plasma 2021 [employer] [facility], [address] [facility], [address], [place], [address], 14:53:12 Referral None recorded. Procedures None recorded. Surgeries None recorded. Imaging None recorded. Medication Orders sertraline 50 mg tablet 2021 [facility] Not available 11:52:03 Trelegy Ellipta 200 mcg-62.5 mcg-25 mcg powder for inhalation 2021 [facility] Not available 11:52:04 primidone 50 mg tablet 2021 [facility] Not available 11:52:03 omeprazole 20 mg capsule,del ayed release 2021 [facility] Not available 11:52:03 valsartan 40 mg tablet 2021 [facility] Not available 11:52:06 metoprolol tartrate 25 mg tablet 2021 [facility] Not available 11:52:05 cyanocobala min (vit B-12) 1,000 mcg sublingual tablet 2021 [facility] Not available 11:52:04 valsartan 40 mg tablet 2021 [facility] Not available 10:30:31 amlodipine 10 mg tablet 2021 [facility] Not available 10:30:29 cyanocobala min (vit B-12) 1,000 mcg sublingual tablet 2021 [facility] Not available 10:30:30 sertraline 50 mg tablet 2021 kamaljit Not available 08:38:11 Patient TargetsNo targets recorded. Patient Instructions Encounter Date Encounter Id Patient Instructions Last Modified By Organization Details Last Modified Time 11/29/2021 [id number] medicines to avoid with kidney disease: care instructions kamaljit Not available 11/29/2021 14:52:59 high blood pressure: care instructions kamaljit Not available 11/29/2021 14:52:59 learning about high blood pressure kamaljit Not available 11/29/2021 14:52:59 12/06/2021 [id number] medicines to avoid with kidney disease: care instructions kamaljit Not available 12/06/2021 15:40:02 high cholesterol : care instructions kamaljit Not available 12/06/2021 15:40:02 high blood pressure: care instructions kamaljit Not available 12/06/2021 15:40:03 learning about high blood pressure kamaljit Not available 12/06/2021 15:40:02 01/11/2022 [id number] medicines to avoid with kidney disease: care instructions kamaljit Not available 01/11/2022 10:30:24 01/25/2022 [id number] medicines to avoid with kidney disease: care instructions kamaljit Not available 01/25/2022 11:52:00 02/06/2022 [id number] medicines to avoid with kidney disease: care instructions Not available 02/06/2022 09:24:35 high blood pressure: care instructions Not available 02/06/2022 09:24:35 learning about high blood pressure Not available 02/06/2022 09:24:35 Reason for Referral None Reported. Results Created Date Observation Date Name Description Value Unit Range Abnormal Flag Note LastModifiedBy Organization Detail LastModifiedTime 11/24/1911/24/2021 IRON, TIBC AND RIKA TIN PANEL iron, total 135 mcg/d L 45-160 normal Not Available [facility] [place] [facility] [address], [place], [address], 11/24/2021 06:57:16 11/24/19 22 11/24/2021 IRON, TIBC AND RIKA TIN PANEL iron binding capacity 259 mcg/d L_(ca lc) 250-45 0 normal Not Available [facility] [place] [address], [place], [address], 11/24/2021 06:57:16 11/24/19 22 11/24/2021 IRON, TIBC AND RIKA TIN PANEL % saturation 52 %_(ca lc) 16-45 high Not Available [facility] [address], [place], [address], 11/24/2021 06:57:16 11/24/19 22 11/24/2021 IRON, TIBC AND RIKA TIN PANEL ferritin 328 NG/mL 16-288 high Not Available [facility] [address], [place], [address], 11/24/2021 06:57:16 11/24/19 22 11/24/2021 COMPR EHENS BRUNA METAB OLIC PANEL glucose 96 mg/dL 65-99 normal Fasti ng refer ence inter best Not Available [facility] [address], [place], [address], 11/24/2021 06:57:17 11/24/19 22 11/24/2021 COMPR EHENS BRUNA METAB OLIC PANEL urea nitrogen (BUN) 26 mg/dL 7-25 high Not Available [facility] [address], [place], [address], 11/24/2021 06:57:17 11/24/19 22 11/24/2021 COMPR EHENS BRUNA METAB OLIC PANEL creatinine 1.77 mg/dL 0.60-1 .00 high Not Available [facility] [place] [address], [place], [address], 11/24/2021 06:57:17 11/24/19 22 11/24/2021 COMPR EHENS BRUNA METAB OLIC PANEL eGFR 30 mL/mi n/1.7 3m2 > or = 60 low The eGFR is based on the CKD-E PI 2020 equat ion. To calcu late the new eGFR from a previ ous Creat inine or Cysta tin C resul t, go to https ://linnette w.kid vinny.o kingsley/marley braga s/ kdoqi /gfr% 5Fcal culat or Not Available [facility] [address], [place], [address], 11/24/2021 06:57:17 11/24/19 22 11/24/2021 COMPR EHENS BRUNA METAB OLIC PANEL BUN/creatini ne ratio 15 (calc ) 6-22 normal Not Available [facility] [address], [place], [address], 11/24/2021 06:57:17 11/24/19 22 11/24/2021 COMPR EHENS BRUNA METAB OLIC PANEL sodium 139 mmol/ L 135-14 6 normal Not Available [facility] [address], [place], [address], 11/24/2021 06:57:17 11/24/19 22 11/24/2021 COMPR EHENS BRUNA METAB OLIC PANEL potassium 5.0 mmol/ L 3.5-5. 3 normal Not Available [facility] [place] [address], [place], [address], 11/24/2021 06:57:17 11/24/19 22 11/24/2021 COMPR EHENS BRUNA METAB OLIC PANEL chloride 102 mmol/ L 98-110 normal Not Available [facility] [address], [place], [address], 11/24/2021 06:57:17 11/24/19 22 11/24/2021 COMPR EHENS BRUNA METAB OLIC PANEL carbon dioxide 27 mmol/ L 20-32 normal Not Available [facility] [address], [place], [address], 11/24/2021 06:57:17 11/24/19 22 11/24/2021 COMPR EHENS BRUNA METAB OLIC PANEL calcium 9.4 mg/dL 8.6-10 .4 normal Not Available [facility] [address], [place], [address], 11/24/2021 06:57:17 11/24/19 22 11/24/2021 COMPR EHENS BRUNA METAB OLIC PANEL protein, total 6.5 g/dL 6.1-8. 1 normal Not Available [facility] [address], [place], [address], 11/24/2021 06:57:17 11/24/19 22 11/24/2021 COMPR EHENS BRUNA METAB OLIC PANEL albumin 4.1 g/dL 3.6-5. 1 normal Not Available [facility] [address], [place], [address], 11/24/2021 06:57:17 11/24/19 22 11/24/2021 COMPR EHENS BRUNA METAB OLIC PANEL globulin 2.4 g/dL_ (calc ) 1.9-3. 7 normal Not Available [facility] [address], [place], [address], 11/24/2021 06:57:17 11/24/19 22 11/24/2021 COMPR EHENS BRUNA METAB OLIC PANEL albumin/glob ulin ratio 1.7 (calc ) 1.0-2. 5 normal Not Available [facility] [address], [place], [address], 11/24/2021 06:57:17 11/24/19 22 11/24/2021 COMPR EHENS BRUNA METAB OLIC PANEL bilirubin, total 0.5 mg/dL 0.2-1. 2 normal Not Available [facility] [address], [place], [address], 11/24/2021 06:57:17 11/24/19 22 11/24/2021 COMPR EHENS BRUNA METAB OLIC PANEL alkaline phosphatase 80 U/L 37-153 normal Not Available [facility] [address], [place], [address], 11/24/2021 06:57:17 11/24/19 22 11/24/2021 COMPR EHENS BRUNA METAB OLIC PANEL AST 8 U/L 10-35 low Not Available [facility] [address], [place], [address], 11/24/2021 06:57:17 11/24/19 22 11/24/2021 COMPR EHENS BRUNA METAB OLIC PANEL ALT 7 U/L 6-29 normal Not Available [facility] [address], [place], [address], 11/24/2021 06:57:17 11/24/19 22 11/24/2021 CBC (INCL UDES DIFF/ PLT) white blood cell count 4.5 thous and/u L 3.8-10 .8 normal Not Available [facility] [address], [place], [address], 11/24/2021 06:57:17 11/24/19 22 11/24/2021 CBC (INCL UDES DIFF/ PLT) red blood cell count 3.49 ellen on/uL 3.80-5 .10 low Not Available [facility] [address], [place], [address], 11/24/2021 06:57:17 11/24/19 22 11/24/2021 CBC (INCL UDES DIFF/ PLT) hemoglobin 11.1 g/dL 11.7-1 5.5 low Not Available [facility] [address], [place], [address], 11/24/2021 06:57:17 11/24/19 22 11/24/2021 CBC (INCL UDES DIFF/ PLT) hematocrit 32.1 % 35.0-4 5.0 low Not Available [facility] [address], [place], [address], 11/24/2021 06:57:17 11/24/19 22 11/24/2021 CBC (INCL UDES DIFF/ PLT) MCV 92.0 fL 80.0-1 00.0 normal Not Available [facility] [address], [place], [address], 11/24/2021 06:57:17 11/24/19 22 11/24/2021 CBC (INCL UDES DIFF/ PLT) MCH 31.8 pg 27.0-3 3.0 normal Not Available [facility] [address], [place], [address], 11/24/2021 06:57:17 11/24/19 22 11/24/2021 CBC (INCL UDES DIFF/ PLT) MCHC 34.6 g/dL 32.0-3 6.0 normal Not Available [facility] [address], [place], [address], 11/24/2021 06:57:17 11/24/19 22 11/24/2021 CBC (INCL UDES DIFF/ PLT) RDW 12.7 % 11.0-1 5.0 normal Not Available [facility] [address], [place], [address], 11/24/2021 06:57:17 11/24/19 22 11/24/2021 CBC (INCL UDES DIFF/ PLT) platelet count 186 thous and/u L 140-40 0 normal Not Available [facility] [address], [place], [address], 11/24/2021 06:57:17 11/24/19 22 11/24/2021 CBC (INCL UDES DIFF/ PLT) MPV 10.3 fL 7.5-12 .5 normal Not Available [facility] [address], [place], [address], 11/24/2021 06:57:17 11/24/19 22 11/24/2021 CBC (INCL UDES DIFF/ PLT) absolute neutrophils 2561 cells /uL 1500-7 800 normal Not Available [facility] [address], [place], [address], 11/24/2021 06:57:17 11/24/19 22 11/24/2021 CBC (INCL UDES DIFF/ PLT) absolute lymphocytes 1341 cells /uL 850-39 00 normal Not Available [facility] [address], [place], [address], 11/24/2021 06:57:17 11/24/19 22 11/24/2021 CBC (INCL UDES DIFF/ PLT) absolute monocytes 365 cells /uL 200-95 0 normal Not Available [facility] [address], [place], [address], 11/24/2021 06:57:17 11/24/19 22 11/24/2021 CBC (INCL UDES DIFF/ PLT) absolute eosinophils 194 cells /uL 15-500 normal Not Available [facility] [address], [place], [address], 11/24/2021 06:57:17 11/24/19 22 11/24/2021 CBC (INCL UDES DIFF/ PLT) absolute basophils 41 cells /uL 0-200 normal Not Available [facility] [place] [facility] [address], [place], [address], 11/24/2021 06:57:17 11/24/19 22 11/24/2021 CBC (INCL UDES DIFF/ PLT) neutrophils 56.9 % normal Not Available [facility] [place] [facility] [address], [place], [address], 11/24/2021 06:57:17 11/24/19 22 11/24/2021 CBC (INCL UDES DIFF/ PLT) lymphocytes 29.8 % normal Not Available [facility] [place] [facility] [address], [place], [address], 11/24/2021 06:57:17 11/24/19 22 11/24/2021 CBC (INCL UDES DIFF/ PLT) monocytes 8.1 % normal Not Available [facility] [place] [facility] [address], [place], [address], 11/24/2021 06:57:17 11/24/19 22 11/24/2021 CBC (INCL UDES DIFF/ PLT) eosinophils 4.3 % normal Not Available [facility] [place] [facility] [address], [place], [address], 11/24/2021 06:57:17 11/24/19 22 11/24/2021 CBC (INCL UDES DIFF/ PLT) basophils 0.9 % normal Not Available [facility] [place] [facility] [address], [place], [address], 11/24/2021 06:57:17 11/24/19 22 11/24/2021 VITAM IN B12/F OLATE , SERUM PANEL vitamin B12 216 pg/mL 200-11 00 normal Pleas e Note: Altho ugh the refer ence range for vitam in B12 is 200-1 100 pg/mL , it has been repor morgan that betwe en 5 and 10% of patie nts with value s betwe en 200 and 400 pg/mL may exper ience neuro psych iatri c and hemat ologi c abnor malit ies due to occul t B12 defic iency ; less than 1% of patie nts with value s above 400 pg/mL will have sympt oms. Not Available [facility] [place] [facility] [address], [place], [address], 11/24/2021 06:57:18 11/24/1911/24/2021 VITAM IN B12/F OLATE , SERUM PANEL folate, serum 8.8 NG/mL normal Refer ence Range Low: <3.4 Borde rline : 3.4-5 .4 Natalie l: >5.4 Not Available [facility] [place] [address], [place], [address], 11/24/2021 06:57:18 12/20/1912/23/2021 CLOST RIDIU M DIFFI CILE TOXIN B,QL REAL TIME PCR clostridium difficile toxinb,ql real time PCR NOT DETECT ED not detect ed normal This test is for use only with liqui d or soft stool s; perfo rmanc e belle cteri stics of other clini aracelis speci men types have not been estab lishe d. This assay was perfo rmed by [employer] pert( R) PCR. The perfo rmanc e belle cteri stics of this assay have been deter mined by [facility]. Perfo rmanc e belle cteri stics refer to the lemuel tical perfo rmanc e of the test. For addit ional infor devi san e refer to http: //sergio davenport.Jeffrey wood ics.c om/fa q/FAQ 136 (This link is being provi ded for infor nereyda nal/e ducat ional purpo ses only. ) Not Available [facility] [place] [facility] [address], [place], [address], 12/23/2021 19:07:05 12/20/19 22 12/23/2021 CLOST RIDIU M DIFFI CILE TOXIN /GDH W/REF L TO PCR clostridium difficile toxin/gdh w/refl to PCR SEE NOTE CLOST RIDIU M DIFFI CILE TOXIN /GDH W/REF L TO PCR Micro Numbe r: [id number] Test Statu s: Final Speci men Sourc e: Stool Speci men Quali ty: Adequ ate GDH Antig en: Detec morgan Toxin A and B: Not Detec morgan COMME NT: Indet ermin ate. Speci men forwa rded for toxig enic C. diffi cile PCR testi ng. For addit ional infor devi san e refer to http: //[facility] kevin [place]port.Que stDia gnost ics.c om/fa q/FAQ 136 (This link is being provi ded for infor nereyda nal/e ducat ional purpo ses only. ) Not Available [facility] [place] [address], [place], [address], 12/23/2021 19:07:06 12/20/19 22 12/23/2021 OVA AND SHERLYN ITES WITH GIARD IA ANTIG EN giardia Ag, EIA, stool SEE NOTE GIARD IA AG, EIA, STOOL Micro Numbe r: [id number] Test Statu s: Final Speci men Sourc e: Stool Speci men Quali ty: Adequ ate Giard ia Resul t 1: Not Detec morgan Refer ence Range : Not Detec morgan NOTE: Due to inter mitte nt juan daniel ing, one negat bruna sampl e does not neces saril y rule out the prese nce of a sherlyn itic infec tion. Not Available [facility] [place] [address], [place], [address], 12/23/2021 19:07:06 12/20/19 22 12/23/2021 OVA AND SHERLYN ITES WITH GIARD IA ANTIG EN ova and parasites, conc and perm smear SEE NOTE OVA AND SHERLYN ITES, CONC AND PERM SMEAR Micro Numbe r: [id number] Test Statu s: Final Speci men Sourc e: Stool Speci men Quali ty: Adequ ate RUIZ NTRAT ION 1: No ova or sherlyn ites seen TRICH ELZBIETA 1: No ova or sherlyn ites seen Routi ne Ova and Sherlyn ite exam may not detec t some sherlyn ites that occas ional ly cause diarr heal illne ss. Crypt ospor idium Antig en and/o r Cyclo spora and Isosp ora Exam may be order ed to detec t these sherlyn ites. One negat bruna sampl e does not neces saril y rule out the prese nce of a sherlyn itic infec tion. For addit ional infor devi san e refer to https ://ed ucati on.qu [facility]/f aq/FA Q203 (This link is being provi ded for infor nereyda laguna/ educa lexi l purpo ses only. ) Not Available [facility] [address], [place], [address], 12/23/2021 19:07:06 01/03/20 22 01/03/2022 IRON, TIBC AND RIKA TIN PANEL iron, total 65 mcg/d L 45-160 normal Not Available [facility] [address], [place], [address], 01/03/2022 03:33:58 01/03/20 22 01/03/2022 IRON, TIBC AND RIKA TIN PANEL iron binding capacity 252 mcg/d L_(ca lc) 250-45 0 normal Not Available [facility] [facility] [address], [place], [address], 01/03/2022 03:33:58 01/03/20 22 01/03/2022 IRON, TIBC AND RIKA TIN PANEL % saturation 26 %_(ca lc) 16-45 normal Not Available [facility] [address], [place], [address], 01/03/2022 03:33:58 01/03/20 22 01/03/2022 IRON, TIBC AND RIKA TIN PANEL ferritin 254 NG/mL 16-288 normal Not Available [facility] [address], [place], [address], 01/03/2022 03:33:58 01/03/20 22 01/03/2022 TSH+F REE T4 TSH 4.01 mIU/L 0.40-4 .50 normal Not Available [facility] [address], [place], [address], 01/03/2022 03:33:59 01/03/2001/03/2022 TSH+F REE T4 T4, free 1.3 NG/dL 0.8-1. 8 normal Not Available [facility] [address], [place], [address], 01/03/2022 03:33:59 01/03/20 22 01/03/2022 COMPR EHENS BRUNA METAB OLIC PANEL glucose 84 mg/dL 65-139 normal Non-f astin g refer ence inter best Not Available [facility] [address], [place], [address], 01/03/2022 03:34:00 01/03/20 22 01/03/2022 COMPR EHENS BRUNA METAB OLIC PANEL urea nitrogen (BUN) 22 mg/dL 7-25 normal Not Available [facility] [address], [place], [address], 01/03/2022 03:34:00 01/03/20 22 01/03/2022 COMPR EHENS BRUNA METAB OLIC PANEL creatinine 1.71 mg/dL 0.60-1 .00 high Not Available [facility] [address], [place], [address], 01/03/2022 03:34:00 01/03/20 22 01/03/2022 COMPR EHENS BRUNA METAB OLIC PANEL eGFR 32 mL/mi n/1.7 3m2 > or = 60 low The eGFR is based on the CKD-E PI 2020 equat ion. To calcu late the new eGFR from a previ ous Creat inine or Cysta tin C resul t, go to https ://linnette milligan.beatriz casillas.o kingsley/marley braga s/ kdoqi /gfr% 5Fcal culat or Not Available [facility] [place] [facility] [address], [place], [address], 01/03/2022 03:34:00 01/03/20 22 01/03/2022 COMPR EHENS BRUNA METAB OLIC PANEL BUN/creatini ne ratio 13 (calc ) 6-22 normal Not Available [facility] [address], [place], [address], 01/03/2022 03:34:00 01/03/20 22 01/03/2022 COMPR EHENS BRUNA METAB OLIC PANEL sodium 141 mmol/ L 135-14 6 normal Not Available [facility] [address], [place], [address], 01/03/2022 03:34:00 01/03/20 22 01/03/2022 COMPR EHENS BRUNA METAB OLIC PANEL potassium 5.1 mmol/ L 3.5-5. 3 normal Not Available [facility] [address], [place], [address], 01/03/2022 03:34:00 01/03/20 22 01/03/2022 COMPR EHENS BRUNA METAB OLIC PANEL chloride 102 mmol/ L 98-110 normal Not Available [facility] [address], [place], [address], 01/03/2022 03:34:00 01/03/20 22 01/03/2022 COMPR EHENS BRUNA METAB OLIC PANEL carbon dioxide 30 mmol/ L 20-32 normal Not Available [facility] [address], [place], [address], 01/03/2022 03:34:00 01/03/20 22 01/03/2022 COMPR EHENS BRUNA METAB OLIC PANEL calcium 9.1 mg/dL 8.6-10 .4 normal Not Available [facility] [address], [place], [address], 01/03/2022 03:34:00 01/03/20 22 01/03/2022 COMPR EHENS BRUNA METAB OLIC PANEL protein, total 6.8 g/dL 6.1-8. 1 normal Not Available [facility] [address], [place], [address], 01/03/2022 03:34:00 01/03/20 22 01/03/2022 COMPR EHENS BRUNA METAB OLIC PANEL albumin 4.2 g/dL 3.6-5. 1 normal Not Available [facility] [address], [place], [address], 01/03/2022 03:34:00 01/03/20 22 01/03/2022 COMPR EHENS BRUNA METAB OLIC PANEL globulin 2.6 g/dL_ (calc ) 1.9-3. 7 normal Not Available [facility] [address], [place], [address], 01/03/2022 03:34:00 01/03/20 22 01/03/2022 COMPR EHENS BRUNA METAB OLIC PANEL albumin/glob ulin ratio 1.6 (calc ) 1.0-2. 5 normal Not Available [facility] [address], [place], [address], 01/03/2022 03:34:00 01/03/20 22 01/03/2022 COMPR EHENS BRUNA METAB OLIC PANEL bilirubin, total 0.4 mg/dL 0.2-1. 2 normal Not Available [facility] [address], [place], [address], 01/03/2022 03:34:00 01/03/20 22 01/03/2022 COMPR EHENS BRUNA METAB OLIC PANEL alkaline phosphatase 82 U/L 37-153 normal Not Available [facility] [address], [place], [address], 01/03/2022 03:34:00 01/03/20 22 01/03/2022 COMPR EHENS BRUNA METAB OLIC PANEL AST 9 U/L 10-35 low Not Available [facility] [address], [place], [address], 01/03/2022 03:34:00 01/03/20 22 01/03/2022 COMPR EHENS BRUNA METAB OLIC PANEL ALT 7 U/L 6-29 normal Not Available [facility] [address], [place], [address], 01/03/2022 03:34:00 01/03/20 22 01/03/2022 CBC (INCL UDES DIFF/ PLT) white blood cell count 5.5 thous and/u L 3.8-10 .8 normal Not Available [facility] [address], [place], [address], 01/03/2022 03:34:00 01/03/20 22 01/03/2022 CBC (INCL UDES DIFF/ PLT) red blood cell count 3.51 ellen on/uL 3.80-5 .10 low Not Available [facility] [address], [place], [address], 01/03/2022 03:34:00 01/03/20 22 01/03/2022 CBC (INCL UDES DIFF/ PLT) hemoglobin 11.1 g/dL 11.7-1 5.5 low Not Available [facility] [address], [place], [address], 01/03/2022 03:34:00 01/03/20 22 01/03/2022 CBC (INCL UDES DIFF/ PLT) hematocrit 32.5 % 35.0-4 5.0 low Not Available [facility] [address], [place], [address], 01/03/2022 03:34:00 01/03/20 22 01/03/2022 CBC (INCL UDES DIFF/ PLT) MCV 92.6 fL 80.0-1 00.0 normal Not Available [facility] [address], [place], [address], 01/03/2022 03:34:00 01/03/20 22 01/03/2022 CBC (INCL UDES DIFF/ PLT) MCH 31.6 pg 27.0-3 3.0 normal Not Available [facility] [address], [place], [address], 01/03/2022 03:34:00 01/03/20 22 01/03/2022 CBC (INCL UDES DIFF/ PLT) MCHC 34.2 g/dL 32.0-3 6.0 normal Not Available [facility] [address], [place], [address], 01/03/2022 03:34:00 01/03/20 22 01/03/2022 CBC (INCL UDES DIFF/ PLT) RDW 12.1 % 11.0-1 5.0 normal Not Available [facility] [address], [place], [address], 01/03/2022 03:34:00 01/03/20 22 01/03/2022 CBC (INCL UDES DIFF/ PLT) platelet count 189 thous and/u L 140-40 0 normal Not Available [facility] [address], [place], [address], 01/03/2022 03:34:00 01/03/20 22 01/03/2022 CBC (INCL UDES DIFF/ PLT) MPV 10.3 fL 7.5-12 .5 normal Not Available [facility] [address], [place], [address], 01/03/2022 03:34:00 01/03/20 22 01/03/2022 CBC (INCL UDES DIFF/ PLT) absolute neutrophils 3251 cells /uL 1500-7 800 normal Not Available [facility] [address], [place], [address], 01/03/2022 03:34:00 01/03/20 22 01/03/2022 CBC (INCL UDES DIFF/ PLT) absolute lymphocytes 1441 cells /uL 850-39 00 normal Not Available [facility] [address], [place], [address], 01/03/2022 03:34:00 01/03/20 22 01/03/2022 CBC (INCL UDES DIFF/ PLT) absolute monocytes 561 cells /uL 200-95 0 normal Not Available [facility] [address], [place], [address], 01/03/2022 03:34:00 01/03/20 22 01/03/2022 CBC (INCL UDES DIFF/ PLT) absolute eosinophils 198 cells /uL 15-500 normal Not Available [facility] [address], [place], [address], 01/03/2022 03:34:00 01/03/20 22 01/03/2022 CBC (INCL UDES DIFF/ PLT) absolute basophils 50 cells /uL 0-200 normal Not Available [facility] [address], [place], [address], 01/03/2022 03:34:00 01/03/20 22 01/03/2022 CBC (INCL UDES DIFF/ PLT) neutrophils 59.1 % normal Not Available [facility] [place] [facility] [address], [place], [address], 01/03/2022 03:34:00 01/03/20 22 01/03/2022 CBC (INCL UDES DIFF/ PLT) lymphocytes 26.2 % normal Not Available [facility] [place] [facility] [address], [place], [address], 01/03/2022 03:34:00 01/03/20 22 01/03/2022 CBC (INCL UDES DIFF/ PLT) monocytes 10.2 % normal Not Available [facility] [place] [facility] [address], [place], [address], 01/03/2022 03:34:00 01/03/20 22 01/03/2022 CBC (INCL UDES DIFF/ PLT) eosinophils 3.6 % normal Not Available [facility] [place] [facility] [address], [place], [address], 01/03/2022 03:34:00 01/03/20 22 01/03/2022 CBC (INCL UDES DIFF/ PLT) basophils 0.9 % normal Not Available [facility] [place] [facility] [address], [place], [address], 01/03/2022 03:34:00 01/03/20 22 01/03/2022 VITAM IN B12/F OLATE , SERUM PANEL vitamin B12 287 pg/mL 200-11 00 normal Pleas e Note: Altho ugh the refer ence range for vitam in B12 is 200-1 100 pg/mL , it has been repor morgan that betwe en 5 and 10% of patie nts with value s betwe en 200 and 400 pg/mL may exper ience neuro psych iatri c and hemat ologi c abnor malit ies due to occul t B12 defic iency ; less than 1% of patie nts with value s above 400 pg/mL will have sympt oms. Not Available [facility] [place] [facility] [address], [place], [address], 01/03/2022 03:34:01 01/03/2001/03/2022 VITAM IN B12/F OLATE , SERUM PANEL folate, serum 10.6 NG/mL normal Refer ence Range Low: <3.4 Borde rline : 3.4-5 .4 Natalie l: >5.4 Not Available [facility] [address], [place], [address], 01/03/2022 03:34:01 01/27/2001/27/2022 BASIC METAB OLIC PANEL glucose 112 mg/dL 65-139 normal Non-f astin g refer ence inter best Not Available [facility] [address], [place], [address], 01/27/2022 06:38:21 01/27/20 22 01/27/2022 BASIC METAB OLIC PANEL urea nitrogen (BUN) 13 mg/dL 7-25 normal Not Available [facility] [address], [place], [address], 01/27/2022 06:38:21 01/27/20 22 01/27/2022 BASIC METAB OLIC PANEL creatinine 1.48 mg/dL 0.60-1 .00 high Not Available [facility] [address], [place], [address], 01/27/2022 06:38:21 01/27/20 22 01/27/2022 BASIC METAB OLIC PANEL eGFR 38 mL/mi n/1.7 3m2 > or = 60 low The eGFR is based on the CKD-E PI 2020 equat ion. To calcu late the new eGFR from a previ ous Creat inine or Cysta tin C resul t, go to https ://linnette w.kid vinny.o kingsley/marley braga s/ kdoqi /gfr% 5Fcal culat or Not Available [facility] [address], [place], [address], 01/27/2022 06:38:21 01/27/20 22 01/27/2022 BASIC METAB OLIC PANEL BUN/creatini ne ratio 9 (calc ) 6-22 normal Not Available [facility] [address], [place], [address], 01/27/2022 06:38:21 01/27/20 22 01/27/2022 BASIC METAB OLIC PANEL sodium 137 mmol/ L 135-14 6 normal Not Available [facility] [address], [place], [address], 01/27/2022 06:38:21 01/27/20 22 01/27/2022 BASIC METAB OLIC PANEL potassium 4.8 mmol/ L 3.5-5. 3 normal Not Available [facility] [address], [place], [address], 01/27/2022 06:38:21 01/27/20 22 01/27/2022 BASIC METAB OLIC PANEL chloride 104 mmol/ L 98-110 normal Not Available [facility] [address], [place], [address], 01/27/2022 06:38:21 01/27/20 22 01/27/2022 BASIC METAB OLIC PANEL carbon dioxide 26 mmol/ L 20-32 normal Not Available [facility] [address], [place], [address], 01/27/2022 06:38:21 01/27/20 22 01/27/2022 BASIC METAB OLIC PANEL calcium 8.8 mg/dL 8.6-10 .4 normal Not Available [facility] [address], [place], [address], 01/27/2022 06:38:21 11/26/19 11/25/2021 MAMMO , scree stew, digit al, bilat eral No observ ation record ed. [facility] [address], [place], [address], 11/28/2021 06:40:52 11/26/19 22 11/25/2021 LDCT, chest , for lung cance r scree stew No observ ation record ed. [facility] [address], [place], [address], 11/28/2021 06:41:29 11/26/19 22 11/25/2021 US, kidne y No observ ation record ed. [facility] [address], [place], [address], 11/28/2021 06:41:56 Result Notes None recorded. Problems Name Problem SNOMED Code Status Onset Date Resolution Date Notes Provider Name and Address Organization Details Recorded Time Atrial fibrillat ion 84479166 Completed 201909/01/2020 Akilah Carreno MD [address], [place], [address] , [facility] [employer] 1 16:36:39 Benign essential hypertens ion 9093051 Completed 201907/08/2021 Akilah Carreno MD [address], [place], [address] , [facility] [employer] [facility] 2 13:44:09 Body mass index 30+ - obesity 541088924 Completed 201907/08/2021 Akilah Carreno MD [address], [place], [address] , [facility], [facility] 2 13:44:22 Migraine 91194958 Completed 201907/08/2021 Akilah Carreno MD [address], [place], [address] , [facility], [facility] 2 13:52:04 Smoker 62906131 Completed 201907/08/2021 Stone Vanegas [facility], [facility] 2 13:34:59 Renal impairmen t 801699168 Completed 201901/29/2020 Margarito Urbano [facility], [facility] 0 08:51:54 Osteoarth ritis of knee 525600956 Completed 201907/08/2021 Akilah Carreno MD [address] [address], [place], [address] , [facility] 2 13:44:17 Venous varices 924614962 Completed 201907/08/[address] [facility] [address], [place], [address] , [facility] 2 13:52:01 Chronic kidney disease stage 3 059687299 Completed 202007/08/[address] [facility] [address], [place], [address] , [facility] 2 13:44:05 Ex-smoker 3406897 Completed 202007/08/[address] [facility] [address] , [place], [address] , [facility] 2 13:44:14 Psoriasis 0518591 Completed 202007/08/2021 Akilah Carreno MD [address] [address], [place], [address] , [facility] 2 13:44:15 Cyst of left ovary 95687942193 737944 Completed 202007/08/2021 Stone Vanegas [facility], [facility] 2 13:34:59 Hiatal hernia 45822441 Completed 202007/08/2021 Stone Vanegas [facility], [facility] 2 13:34:59 Diverticu losis of colon without diverticu litis 197969089 Completed 202007/08/2021 [facility] 2 13:34:59 Mass of right parotid gland 16949961780 356220 Completed 202007/08/[address] [facility] [address], [place], [address] , [facility] 2 13:44:12 Renal mass 385045645 Completed 202007/08/2021 [facility] 2 13:34:59 Imaging of lung abnormal 579775982 Completed 202007/08/[address] [facility] [address], [place], [address] , [facility] 2 13:44:03 Endometri um thickened 085680512 Completed 202007/08/2021 Akilah Carreno MD [facility] [address], [place], [address] , [facility], [facility] 2 13:44:20 Paroxysma l atrial fibrillat ion 833059108 Completed 202007/08/[address] [facility] [address], [place], [address] , [facility] 2 13:44:07 Complex ovarian cyst 18606359284 3 Completed 202007/08/2021 Akilah Carreno MD [facility] [address], [place], [address] , [facility], [facility] 2 13:44:19 Body mass index 40+ - severely obese 196328679 Completed 202007/08/2021 [facility] 2 13:34:59 Imaging of lung abnormal 025523632 Active 2021 MD [address], [place], [address] , [facility], [facility] 2 13:44:03 Chronic kidney disease stage 3 723789651 Active 2021 MD [address], [place], [address] , [facility], [facility] 2 13:44:05 Paroxysma l atrial fibrillat ion 691264907 Active 2021 MD [address], [place], [address] , [facility], [facility] 2 13:44:07 Benign essential hypertens ion 4083885 Active 2021 MD [address], [place], [address] , [facility], [facility] 2 13:44:09 Mass of right parotid gland 58887156427 832252 Active 2021 MD [address], [place], [address] , [facility], [facility] 2 13:44:12 Ex-smoker 0111901 Active 2021 MD [address], [place], [address] , [facility], [facility] 2 13:44:14 Psoriasis 6464975 Active 2021 MD [address], [place], [address] , [facility], [facility] 2 13:44:15 Osteoarth ritis of knee 868250540 Active 2021 MD [address], [place], [address] , [facility], [facility] 2 13:44:17 Complex ovarian cyst 63334085475 3 Active [address], [place], [address] , [facility], [facility] 2 13:44:19 Endometri um thickened 901673328 Active 2021 MD [address], [place], [address] , [facility], [facility] 2 13:44:20 Body mass index 30+ - obesity 976678953 Active 2021 MD [address], [place], [place], [address] [place] [address] , [facility] 2 13:44:22 Anemia 739713090 Active 2021 MD [address], [place], [place], [address] [place] [address] , [facility] 2 13:47:40 Asthma 681388439 Active 2021 MD [address], [place], [address] [place] [address] , [facility] 2 13:51:58 Venous varices 867519425 Active 2021 MD [address], [place], [address] [place] [address] , [facility], [facility] 2 13:52:01 Obstructi ve sleep apnea syndrome 88981354 Active [address], [place], [address] , [facility], [facility] 2 13:52:03 Migraine 49509524 Active [address], [place], [address] , [facility], [facility] 2 13:52:04 Senile osteopeni a 17881364 Active [address], [place], [address] , [facility], [facility] 2 13:52:08 Tobacco user 873492975 Active [address], [place], [address] , [facility], [facility] 2 14:26:44 Hiatal hernia with gastroeso phageal reflux 231451118 Active 2021 MD [address], [place], [address] , [facility], [facility] 2 14:32:35 Tremor 37571952 Active 2021 MD [address], [place], [address] , [facility], [facility] 2 14:41:39 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 Procedures Surgical History Date Name Laterality Status Provider Name and Address Organization Details Recorded Time 11/26/19 22 Mammogram completed [facility] 11/29/2021 14:12:50 06/11/19 21 Dexascan completed [facility] 09/01/2020 14:12:19 06/11/19 21 Mammogram completed [facility] 09/01/2020 14:12:59 04/09/19 01 Colonoscopy completed [address], [place], [address], [facility], [facility] 05/24/2020 15:40:06 04/09/19 00 Mammogram completed JULY ZACHARIAH QUINONEZ [address], [place], [address], [facility], [facility] 05/24/2020 15:37:30 04/09/18 80 Tonsillectomy completed JULY ZACHARIAH QUINONEZ [address], [place], [address], [facility], [facility] 07/21/2020 15:33:25 procedure on ganglion cyst completed [facility], [facility] 09/25/2019 08:24:17 Imaging Results None recorded. Procedure Notes None recorded. Medical Equipment None Reported. Allergies No known drug allergies Medications Name Sig Start Date Stop Date Status Note LastModified by Organization Details LastModified Time silver sulfadiazin e 1 % topical cream APPLY A 1/16 INCH (1.5 MM) THICK LAYER TO ENTIRE BURN AREA BY TOPICALRO DAWSON 2 TIMES PER DAY 09/01 completed Not Available Not Available Not Available primidone 50 mg tablet Take one tab tid for tremors active Not Available Not Available No t Available bupropion HCl SR 150 mg tablet,12 hr sustained-r elease TAKE 1 TABLET (150 MG) BY ORAL ROUTE 2 TIMES PER DAY 07/08 completed Not Available Not Available Not Available clindamycin HCl 300 mg capsule TAKE 1 TABLET EVERY 6 HOURS FOR 14 DAYS 07/08 completed Not Available Not Available Not Available albuterol sulfate 2.5 mg/3 mL (0.083 %) solution for nebulizatio n Inhale 3 mL 3 times a day by nebulizat ion route. active Not Available Not Available No t Available azithromyci n 250 mg tablet TAKE 2 TABLETS FIRST DOSE. THEN TAKE ONE TABLET ONCE DAILY TILL ALL TAKEN. 07/08 completed Not Available Not Available Not Available hydrocodone 5 mg-acetamin ophen 325 mg tablet 07/08 completed Not Available Not Available Not Available lisinopril 20 mg tablet TAKE ONE TABLET BY MOUTH DAILY 01/11 completed Not Available Not Available Not Available ondansetron HCl 4 mg tablet Take 1 tablet 3 times a day by oral route as needed for 20 days. 11/07 completed Not Available Not Available Not Available sumatriptan 50 mg tablet take 1 for headache repeat 1 timeafter 2 hours if headache not resolved 07/08 completed Not Available Not Available Not Available promethazin e 6.25 mg-codeine 10 mg/5 mL syrup 09/24 completed Not Available Not Available Not Available amlodipine 5 mg tablet TAKE ONE TABLET BY MOUTH DAILY 01/11 completed Not Available Not Available Not Available ciprofloxac in 500 mg tablet Take 1 tablet every 12 hours by oral route for 3 days. 04/30 completed Not Available Not Available Not Available aspirin 81 mg tablet,maurice yed release Take 1 tablet every day by oral route. 07/08 completed Not Available Not Available Not Available triamcinolo ne acetonide 0.1 % topical cream active Not Available Not Available Not Available valsartan 80 mg-hydrochl orothiazide 12.5 mg tablet Take 1 tablet every day by oral route. 01/11 completed Not Available Not Available Not Available baclofen 10 mg tablet Take 1 tablet 3 times a day by oral route as needed. 11/07 completed Not Available Not Available Not Available amlodipine 10 mg tablet TAKE 1 TABLET ONCE A DAY active Not Available Not Available No t Available pantoprazol e 40 mg tablet,maurice yed release TAKE 1 TABLET ONCE A DAY 07/08 completed Not Available Not Available Not Available lisinopril 10 mg tablet TAKE 1 TABLET (10 MG) BY ORAL ROUTE ONCE DAILY 07/08 completed Not Available Not Available Not Available betamethaso ne dipropionat e 0.05 % topical cream APPLY A THIN LAYER TO THE AFFECTED AREA(S) BY TOPICAL ROUTE ONCE DAILY 07/08 completed Not Available Not Available Not Available omeprazole 20 mg capsule,del ayed release TAKE ONE CAPSULE BY MOUTH DAILY NEEDED 2021 active Not Available Not Available Not Avai lable Tylenol 325 mg tablet 07/08 completed Not Available Not Available Not Available cyanocobala min (vit B-12) 1,000 mcg sublingual tablet Take one tab PO daily 2021 active Not Available Not Available Not Avai lable gabapentin 100 mg capsule 11/07 completed Not Available Not Available Not Available methylpredn isolone 4 mg tablets in a dose pack Take 1 dose pk by oral route. 05/13 completed Not Available Not Available Not Available albuterol sulfate HFA 90 mcg/actuati on aerosol inhaler Inhale 1 puff by inhalatio n route as needed. active Not Available Not Available No t Available betamethaso ne dipropionat e 0.05 % topical ointment APPLY A THIN LAYER TO THE AFFECTED AREA(S) BY TOPICAL ROUTE ONCE DAILY/ for a week active Not Available Not Available No t Available cefdinir 300 mg capsule 08/01 completed Not Available Not Available Not Available sertraline 50 mg tablet TAKE ONE TABLET BY MOUTH DAILY 2021 active Not Available Not Available Not Avai lable amoxicillin 875 mg-potassiu m clavulanate 125 mg tablet TAKE 1 TABLET BY ORAL ROUTE EVERY 12 HOURS X 10 DAYS 07/08 completed Not Available Not Available Not Available neomycin-po lymyxin-hyd rocort 3.5 mg-10,000 unit/mL-1 % ear drops,susp INSTILL 4 DROPS INTO THE LEFT EAR TWICE DAILY FOR 7 DAYS 07/08 completed Not Available Not Available Not Available valsartan 160 mg-hydrochl orothiazide 25 mg tablet TAKE ONE TABLET BY MOUTH DAILY 12/06 completed Not Available Not Available Not Available valsartan 40 mg tablet Take 1 tablet every day by oral route for 90 days. active Not Available Not Available No t Available Tylenol 8 Hour 650 mg tablet,exte nded release Take 2 tablets every 8 hours by oral route for 30 days. 07/08 completed Not Available Not Available Not Available metoprolol tartrate 25 mg tablet TAKE 1/2 TABLET BY MOUTH TWICE DAILY active Not Available Not Available No t Available hydrochloro thiazide 12.5 mg tablet Take 1 tablet every day by oral route for 90 days. 12/30 completed Not Available Not Available Not Available diclofenac 1 % topical gel APPLY 2 GRAMS TO THE AFFECTED AREA(S) BY TOPICAL ROUTE 4 TIMES PER DAY 01/11 completed Not Available Not Available Not Available Prevnar 13 (PF) 0.5 mL intramuscul ar syringe 01/28 completed Not Available Not Available Not Available Chantix Starting Month Box 0.5 mg (11)-1 mg (42) tablets in dose pack Take 1 startr pk by oral route. 01/28 completed Not Available Not Available Not Available Breo Ellipta 100 mcg-25 mcg/dose powder for inhalation INHALE 1 PUFF BY INHALATIO N ROUTE ONCE DAILY AT THE SAME TIME EACH DAY 07/08 completed Not Available Not Available Not Available Stiolto Respimat 2.5 mcg-2.5 mcg/actuati on solution for inhalation Inhale 2 puffs every day by inhalatio n route for 90 days. 07/08 completed Not Available Not Available Not Available bupropion HCl 150 mg tablet,12 hr sustained-r elease(smok ing deterrent) TAKE ONE TABLET BY MOUTH TWICE DAILY active Not Available Not Available No t Available Trelegy Ellipta 100 mcg-62.5 mcg-25 mcg powder for inhalation Inhale 1 puff every day by inhalatio n route. 07/08 completed Not Available Not Available Not Available Fluad Quad (6 5yr up)(PF) 60 mcg (15 mcg x 4)/0.5mL IM syringe 01/28 completed Not Available Not Available Not Available Trelegy Ellipta 200 mcg-62.5 mcg-25 mcg powder for inhalation Inhale 1 puff every day by inhalatio n route. 2021 active Not Available Not Available Not Avai lable aspirin 81 mg capsule Take 1 capsule every day by oral route. 08/11 completed Not Available Not Available Not Available Vitals Date Recorded Body height Body mass index (BMI) Body weight Heart rate Oxygen saturation Oxygen saturation in Arterial blood by Pulse oximetry Respiratory rate Body temperature Systolic And Diastolic Provider Name and Address Organization Details Last Updated DateTime 2 165.1 cm 37.4 kg/m2 760723. 28 g 80 /min 97 % 97 % 12 /min 97.2 [degF] 110/70 mm[Hg] [facility] 2 14:17:56 Date Recorded Body height Respiratory rate Body mass index (BMI) Body weight Heart rate Oxygen saturation Oxygen saturation in Arterial blood by Pulse oximetry Body temperature Systolic And Diastolic Provider Name and Address Organization Details Last Updated DateTime 2 165.1 cm 12 /min 39.8 kg/m2 407677. 58 g 86 /min 95 % 95 % 97.7 [degF] 116/78 mm[Hg] [facility] 09:23:48 Date Recorded Body height Respiratory rate Body mass index (BMI) Body weight Heart rate Oxygen saturation Oxygen saturation in Arterial blood by Pulse oximetry Body temperature Systolic And Diastolic Provider Name and Address Organization Details Last Updated DateTime 2 165.1 cm 12 /min 39.9 kg/m2 134313. 17 g 64 /min 96 % 96 % 97.3 [degF] 120/72 mm[Hg] [facility] 2 11:16:47 Date Recorded Body height Body mass index (BMI) Body weight Heart rate Oxygen saturation Oxygen saturation in Arterial blood by Pulse oximetry Respiratory rate Body temperature Systolic And Diastolic Provider Name and Address Organization Details Last Updated DateTime 2 165.1 cm 40.4 kg/m2 042308. 95 g 68 /min 97 % 97 % 12 /min 97 [degF] 128/78 mm[Hg] [facility] 09:02:01 Social History Question Answer Notes LastModified by Organizat ion Details LastModified Time Tobacco Smoking Status [facility] 09/25/2019 08:19:45 Do You Have An Advance Directive? No Information n ot available 09/25/2019 What Is Your Level Of Caffeine Consumption? Moderate Information not available 09/25/2019 How Much Tobacco Do You Chew? None Information not available 09/25/2019 In The 14 Days Before Symptom Onset, Have You Had Close Contact With A Laboratory-confirm ed COVID-19 While That Case Was Ill? No Information n ot available 09/25/2019 In The 14 Days Before Symptom Onset, Have You Had Close Contact With A Person Who Is Under Investigation For COVID-19 While That Person Was Ill? No Information not available 09/25/2019 Have You Been To An Area Known To Be High Risk For COVID-19? No Information not available 09/25/2019 What Type Of Diet Are You Following? REGULAR Information n ot available 09/25/2019 Marital Status Informatio n not available 09/25/2019 Seat Belts Used Routinely Yes Information not available 09/25/2019 Smoke Alarm In Home Yes Information not available 09/25/2019 At What Age Did You Start Smoking Tobacco? 16 Information not available 09/25/2019 How Much Tobacco Do You Smoke? 1 PPD Information not available 09/25/2019 Do You Use Sunscreen Routinely? No Information not available 09/25/2019 How Many Years Have You Smoked Tobacco? 50 Information not available 09/25/2019 Sex: Unknown Functional Status Question Answer Note LastModified by Organizat ion Details LastModified Time What is your level of alcohol consumption? Occasional Information not available 09/25/2019 Mental Status None recorded. Family History Relationship Description Onset Age of this Age Resolved Age Notes LastModified by Organization Details LastModified Time Father Dementia velder Not available 0 09/25/2019 08:18:37 Maternal Grandfather Malignant neoplasm of lung velder Not available 2019 08:18:51 Paternal Grandfather Malignant neoplasm of colon velder Not available 2019 08:19:03 Medical History Condition Response Diabetes N Anxiety Disorder N Coronary Artery Disease N Gout N Arthritis Y Kidney Stones N Hyperthyroidism N Tuberculosis N Cancer N Diverticulitis N Stroke N COPD Y Depression N Hypothyroidism N Asthma N High Cholesterol N GERD/Reflux N Liver Disease N Heart Disease N Pulmonary Embolism N Fibromyalgia N Hypertension Y Osteoporosis N Kidney Disease N Gynecological HistoryNo gynecological history recorded. Obstetrics History GPAL:G 0 P 0 0 0 0 Immunizations Vaccine Type Date Status Note Provider Nam e and Address Organization Details Recorded Time Influenza, split virus, quadrivalent, preservative 0 completed Not Available [facility] 07/28/2021 18:59:24 Pneumococcal conjugate PCV 13 0 completed Not Available [facility] 07/28/2021 18:59:24 COVID-19 vaccine, vector-nr, rS-Ad26, PF, 0.5 mL 1 completed Not Available [facility] 07/28/2021 18:59:24 Influenza, split virus, quadrivalent, preservative 2 completed [facility] [place], [place] [facility] 01/25/2022 11:23:55 Past Encounters Encounter ID Performer Location Encounter Start Date Encounter Closed Date Diagnosis/Indication Diagnosis SNOMED-CT Code Diagnosis ICD10 Code Diagnosis IMO Codes Diagnosis Note [id number] [facility] OFFICE [address] [place] [address] 09/25/2019 07:56:07 09/25/2019 09:08:02 Benign essential hypertension 1788378 I10 Borderline with BP 140/82 On: - HCTZ 12.5 mg/d - Lisinopril 10 mg/d EKG today: NSR, HR Plan: - Close home monitor - Low Na diet Body mass index 30+ - obesity 581189644 Z68.37 BMI 37.3 today # 224 Advised on diet and lifestyle modificati ons Migraine 47730350 G43.90 9 Extensive hx Stable on sumatripta n 50 mg Smoker 69183171 F17.200 Current x 53 years Long-term drug therapy 327876662 Z79.[address] Penn in [place] [id number] [facility] OFF[facility] [address] [place] [address] 10/16/2019 08:25:16 10/16/2019 08:48:58 Benign essential hypertension 4293510 I10 Controlled with BP 128/70 Was on: - HCTZ 12.5 mg/d - Lisinopril 10 mg/d EKG 09/2019: NSR, HR 69 Plan: - Close home monitor - Low Na diet Migraine 56539557 G43.90 9 Extensive hx Stable on sumatripta n 50 mg Smoker 47257700 F17.200 Current x 53 years Today, she is agreeable to start Chantix Plan: - Provided prescripti on and coupon card today - Encouraged to quit smoking completely Body mass index 30+ - obesity 260148186 Z68.37 BMI 37.1 today # 223 Advised on diet and lifestyle modificati ons Long-term drug therapy 550961638 Z79.[address] Penn in [place] Urinary tr act infectious disease 02117234 N39.0 Low symptomati c and per recent UA 10/09/2019 : > 100,000 CFU of E Coli Plan: - Empiric ABX Renal impairment 8252426 03 N28.9 Per new labs 10/2019: Cr 1.10, GFR 51 On ACEi for renal protection Plan: - Improve hydration [id number] [facility] OFF[facility] [address] [place] [address] 12/17/2019 10:54:34 12/17/2019 11:29:53 Benign essential hypertension 2579291 I10 BP today 134/80 with HR 73 Was on: - HCTZ 12.5 mg/d - Lisinopril 10 mg/d EKG 09/2019: NSR, HR 69 Plan: - Close home monitor - Low Na diet Body mass index 30+ - obesity 485805929 Z68.35 BMI today 37.8 #227 Smoker 90117411 F17.200 Current x 53 years Today, she is agreeable to start Chantix, but she has not started taking it yet. Was prescribed at last visit. Osteoarthr itis of knee 689673789 M17.11 C/O multiple joint pain but right knee pain is worse x years but flare up x 1 day after cleaning house. Was seen ortho in [place] and has received Synvisc injections with improvemen t. Recent appointmen t 11/2019, will request medical records to see recommenda tikimberly. Discussed weight loss to help with knee pain. She is currently 227 lbs. Plan: - RICE - Start Voltaren gel - Advised Tylenol PRN pain [id number] [facility] [address] [place] [address] 12/31/2019 09:25:30 12/31/2019 10:01:13 Osteoarthritis of knee 002518265 M17.11 Was seen ortho in [place] and has received Synvisc injections with improvemen t. Recent appointmen t 11/2019. Have not recieved medical records yet. Discussed weight loss to help with knee pain. She is currently 227 lbs. Improved with conservati ve measures continue RICE, Voltaren and Tylenol PRN Benign ess ential hypertension 1765661 I10 BP today 134/80 with HR 73 Was on: - HCTZ 12.5 mg/d - Lisinopril 10 mg/d Plan: - Close home monitor - Low Na diet Smoker 08869959 F17.200 Current x 53 years Today, she is agreeable to start Chantix, but she has not started taking it yet. Was prescribed at last visit. Body mass index 30+ - obesity 065965648 Z68.35 BMI today 37.8 #225 Migraine 99266348 G43.90 9 Extensive hx Stable on sumatripta n 50 mg Snoring symptoms 0419029 00 R06.83 x years She is on CPAP, that has not been titrated in years. We have no sleep study on file. Will refer to update sleep study. May be contributi ng to migraine symptoms above. [id number] [facility] OFFICE [address] [place] [address] 01/29/2020 08:25:22 01/29/2020 09:02:09 Osteoarthritis of knee 843747197 M17.11 Was seen Ortho in [place] and has received Synvisc injections with carli márquez. Recent appointmen t 11/2019. Have not received medical records yet. Discussed weight loss to help with knee pain. She is currently 220 lbs. Improved with conservati ve measures Plan: - Continue RICE, Voltaren and Tylenol PRN Benign ess ential hypertension 6855094 I10 Well controlled with BP 126/78 Was on: - HCTZ 12.5 mg/d - Lisinopril 10 mg/d Plan: - Close home monitor - Low Na diet Smoker 85470579 F17.200 Current x 53 years On bupropion SR 150 mg to cut back Snoring symptoms 7526617 00 R06.83 x years She is on CPAP, that has not been titrated in years Body mass index 30+ - obesity 883295067 Z68.35 BMI 36.6 today # 220 Asthma 417322359 J45.90 9 Related to smoking status Urinary tr act infectious disease 98629067 N39.0 Low symptomati c and per UA 10/09/2019 : > 100,000 CFU of E Coli Plan: - Empiric ABX Venous varices 981496424 I83.93 Extensive hx Risk factor due to smoking Plan: - Will complete US doppler venous [id number] [facility] [address] [place] [address] 03/24/2020 08:20:00 03/24/2020 14:51:04 Parotid swelling 314183445 K11.9 C/O Rt swollen cheek x 2 days. Denies fevers, chills, drooling, dysphagia or change in voice She remembers a hx of this occuring over 20 years ago. Plan: - Advised sialogogue with sour candy Discussed possible abcess and anaphylaxi s. She denies swollen tongue, lip, throat, drainage. Advised for any red flag symptoms she should proceed to ER. [id number] LAMINE QUINONEZ PA-C OFFICE [address] [place] [address] 04/30/2020 14:21:52 04/30/2020 15:39:37 Osteoarthritis of knee 712143370 M17.11 Reports flare up of pain in right knee. Was seen ortho in [place] and has received Synvisc injections with carli márquez. Recent appointmen t 11/2019. Have not received medical records yet. Discussed weight loss to help with knee pain. Plan Medrol dose pack continue RICE, Voltaren and Tylenol PRN See below regarding knee XR Benign ess ential hypertension 0650647 I10 Was on: - HCTZ 12.5 mg/d - Lisinopril 10 mg/d Plan: - Close home monitor - Low Na diet Migraine 09499170 G43.90 9 Extensive hx Stable on sumatripta n 50 mg Pain in right knee 06254 94106 10409 M25.561 Chronic ( see above) She was diagnosed with osteoarthr itis in [facility] but we do not have records available. If unable to get records, patient would like to get another XR to confirm diagnosis so she may be referred to ortho for new set of injections XR of knee Pain of ri ght hip joint 2193294989 84787 M25.551 Acute on Chronic Denies low back pain. Denies numbness/t ingling/we akness. Denies trauma or falls Asthma 488879140 J45.90 9 Related to smoking status Smoker 14516080 F17.200 Current x 53 years On bupropion SR 150 mg to cut back Venous varices 859336107 I83.93 Extensive hx Risk factor due to smoking US venous ordered last visit Snoring symptoms 9092815 00 R06.83 x years She is on CPAP, that has not been titrated in years [id number] Dominik Mustafa PA-C OFFICE [address] [place] [address] 05/13/2020 08:48:49 05/13/2020 09:41:40 Odontogenic infection of jaw 2340615063 9101 M27.2 Infection first noticed over past 3 days. Indurated over left submaxilla ry space and extending to right submaxilla ry area. Non-fluctu ant Plan: - Empiric Abx and monitor response closely - Stat Oral surgeon referral for evaluation of bottom shaved-sisi n teeth for likely infection source - Close f/u in 1 week - Advised on soft foods and stressed importance of nutrition and hydration. If unable to tolerate liquids, pt advised to report to ED - Continue current pain regimen of OTC Tylenol up to 3000 mg and Ibuprofen as needed, with food Strongl y advised to call office or go to ER if any fever, N/V, or noted discharge from swollen area is noticed for immediate evaluation or if symptoms are continue to worsen despite antibiotic therapy Benign ess ential hypertension 8096955 I10 Controlled today 122/80 Was on: - HCTZ 12.5 mg/d - Lisinopril 10 mg/d Plan: - Close home monitor - Low Na diet Body mass index 30+ - obesity 704958349 Z68.39 05/2020: BMI 39.4 #237 [id number] LAMINE QUINONEZ PA-C OFFICE [address] [place] [address] 05/24/2020 14:50:44 05/24/2020 15:54:55 Benign essential hypertension 2713311 I10 Well controlled with BP 126/80 No longer taking medication . Was on: - HCTZ 12.5 mg/d - Lisinopril 10 mg/d Plan: - Close home monitor - Low Na diet Asthma 461891973 J45.90 9 On Ventolin HFA Venous varices 438403874 I83.93 Extensive hx Risk factor due to smoking 02/2020: US venous - no evidence of DVT Osteoarthr itis of knee 004529700 M17.11 RIGHT knee Pain is stable now since taking Medrol dose pack 04/30/2020W as seen ortho in [place] and has received Synvisc injections with improvemen t in past. No records. Plan continue RICE, Voltaren and Tylenol PRN Body mass index 30+ - obesity 531010848 Z68.35 05/2020: BMI 39.3 # 236 Screening for malignant neoplasm of breast 561109304 Z12.39 Last mammo 1999 Plan Update mammo Screening for malignant neoplasm of colon 672498224 Z12.11 Last colonoscop y 1999 - normal per patient report Plan Refer for colonoscop y Migraine 85268793 G43.90 9 Extensive hx Stable on sumatripta n 50 mg PRN Anemia 187467180 D64.9 Stable Hx of anemia in remote past during . She also recalls taking vitamin shots in past. 05/2020: HH 11.1/33.5 MCV 90.5 10/2019: HH 12.8/38.6 Pt denies abnormal bleeding Plan Check iron panel, ferritin, B12 Refer to update colonoscop y ( last exam 2000) Chronic ki dney disease stage 3 918111838 N18.30 Stable per new labs She is taking Ibuprofen 800mg tid X 1 week. Prior to that was taking PRN knee pain or migraine. 05/17/2020: creat 1.17 GFR 41 10/09/2019: creat 1.10 GFR 49 Plan Baseline kidney US Avoid NSAIDS and increase hydration. 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 Now scheduled to see oral surgeon for tooth extraction 06/05/2020 Disorder of bone 5115493 3 M89.9 Will screen Ex-smoker 4263499 Z87.89 1 Smoked for 53 years quit 02/01/2020 Now on Bupropion SR 150 mg bid to cut back LDCT 02/2020: Micronodul es Screening for malignant neoplasm of skin 458659020 Z12.83 Pt needs annual skin check Psoriasis 6140788 L40.9 Per Hx Obstructiv e sleep apnea syndrome 37440264 G47.33 On CPAP Last sleep study 05/2020 [id number] LAMINE QUINONEZ PA-C OFFICE [address] [place] [address] 07/21/2020 14:39:52 07/21/2020 16:31:29 Benign essential hypertension 2142452 I10 BP borderline 142/76 BP normal now at home ( 115-125 sys) Now on: (started 07/14/2020 during [facility] admit) -Amlodipin e 10mg/d -Lisinopri l 20mg/d Plan: - Close home monitor - Low Na diet Chronic ki dney disease stage 3 073871577 N18.30 Stable per labs 07/14/2020([facility] admit) 1.03, GFR >60 05/17/2020: creat 1.17 GFR 41 10/09/2019: creat 1.10 GFR 49 Kidney US 06/10/2020: Question normal variant lobulation vs isoechoic mass left kidney (3.3cmX 2.79cm) Plan Avoid NSAIDS and increase hydration. Can continue Tylenol PRN Anemia 875625134 D64.9 Stable Hx of anemia in remote past during . She also recalls taking vitamin shots in past. *07/14/2020 ( [facility]) : HH 12.4/39.3* 05/2020: HH 11.1/33.5 MCV 90.5 10/2019: HH 12.8/38.6 Pt denies abnormal bleeding Plan Check iron panel, ferritin, B12 Was referred to update colonoscop y at last visit ( 05/2020) Asthma 409702349 J45.90 9 On Ventolin HFA Ex-smoker 5727129 Z87.89 1 Smoked for 53 years quit 02/01/2020 Now on Bupropion SR 150 mg bid to cut back LDCT 02/2020: Micronodul es Venous varices 280277161 I83.93 Extensive hx Risk factor due to smoking 02/2020: US venous - no evidence of DVT Obstructiv e sleep apnea syndrome 68117301 G47.33 On CPAP Last sleep study 05/2020 Migraine 91184988 G43.90 9 Extensive hx Stable on sumatripta n 50 mg PRN Psoriasis 9711516 L40.9 Per Hx Body mass index 30+ - obesity 694050058 Z68.35 07/2020: BMI 39.1 # 235 05/2020: BMI 39.3 # 236 Screening for malignant neoplasm of colon 503156581 Z12.11 Last colonoscop y 2000 - normal per patient report Was referred 05/2020 to udpate colonoscop y Renal mass 176244891 N28 .89 Per kidney US 06/10/2020: Question normal variant lobulation vs isoechoic mass left kidney (3.3cmX 2.79cm) CT A&P 07/12/2020: no kidney mass noted Plan Discuss at next visit She will be following up with oncologist Senile osteopenia 829615 06 M85.80 Mild per recent dexa Dexa 06/2020: LS -0.1 LFN -1.6 TH -1.0 Atypical chest pain 1025 29531 R07.89 IMPROVED Seen 07/14/2020 at [facility] ACS ruled out Related to GERD sx 07/14/2020 ([facility]) -CT A&P 07/14/2020: Diverticul osis without diverticul itis. Left ovarian cyst -2D echo : EF >75%. -CXR: No acute abnormalit ies. D/C home on : Pantoprazo le Nausea and vomiting 1693 2000 R11.2 Associated with above RESOLVED Headache 87528635 R51.9 Associated with hypertensi ve urgency 07/14/2020 ( [facility] admit) RESOLVED with improved BP control MRI brain : No acute intracrani al abnormalit ies. Incidental finding of right parotid mass Cyst of left ovary 47706 [address] A&P 07/14/2020- Left ovarian cyst 3.5cm X 6.5cm in size Plan US pelvis for further clarificat ion (large cyst for her age) CA 125 Mass of ri ght parotid gland 5703728102 2739931 R22.1 Incidental finding Per MRI brain 07/14/2020 Oncologist at [facility] recommende d outpatient workup. She has follow up with oncologist , Dr. Sol for further workup On Clindamyci n 300mg cap q6h for dental infection Plan CT maxillofac ial with contrast If malignancy found, will need PET scan Follow with oncologist Hiatal her vamsi with gastroesophageal reflux 779306569 K21.9 Stable now on Omeprazole Small hiatal hernia per CT 07/2020 [id number] LAMINE QUINONEZ PA-C OFFICE [address] [place] [address] 08/04/2020 13:35:52 08/04/2020 14:56:49 Mass of right parotid gland 5868017279 3427033 R22.1 Incidental finding Per MRI brain 07/14/2020 ( [facility] workup) On 07/21/2020 -Ordered CT maxillofac ial with contrast -Has follow up with oncologist Dr. Sol On Clindamyci n 300mg cap q6h for dental infection Plan CT maxillofac ial with contrast pending (scheduled 08/11/2020) Has follow up with oncologist ( appt scheduled 08/17/2020) Benign ess ential hypertension 1363375 I10 BP 126/80 Now on: (started 07/14/2020 during [facility] admit) -Amlodipin e 10mg/d -Lisinopri l 20mg/d Chronic ki dney disease stage 3 085794660 N18.30 Stable per labs 07/14/2020([facility] admit) 1.03, GFR >60 05/17/2020: creat 1.17 GFR 41 10/09/2019: creat 1.10 GFR 49 Kidney US 06/10/2020: Question normal variant lobulation vs isoechoic mass left kidney (3.3cmX 2.79cm) Plan Avoid NSAIDS and increase hydration. Can continue Tylenol PRN Ex-smoker 6742034 Z87.89 1 Smoked for 53 years quit 02/01/2020 Now on Bupropion SR 150 mg bid to cut back LDCT 02/2020: Micronodul es Psoriasis 4120560 L40.9 Per Hx Using trimacinol one cream and vasoline She finds that the silvadene cream helps with discomfort Plan Refer to derm Trial of betamethas one instead Endometrium thickened 44 3811608 R93.89 Per Pelvic US 07/29/2020 Complex ovarian cyst 216 9007331 03 N83.299 Incidental finding of large left ovarian cyst Per CT A&P 07/14/2020- Left ovarian cyst 3.5cm X 6.5cm in size Pelvic US 07/29/2020: Thickened endometriu m suspicious for endometria l carcinoma. Left ovary 6.1 X 4.9 X 7.1 cm cyst adenoma or cyst adenocarci noma CA 125 ordered and PENDING Plan Refer to labor and employment paralegal/onco STAT Keep appt with oncologist 08/11/2020 [id number] Akilah Carreno MD OFFICE [address] [place] [address] 09/01/2020 15:45:40 09/01/2020 17:00:05 Pre-surgery evaluation [id number] Z01.818 Pre op evaluation done for robotic lap. hysterecto my on 09/16/2020. - EKG today: NSR, wnl. 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 Complex ovarian cyst 344 1329768 03 N83.299 Incidental finding of large left ovarian cyst - CT A&P 07/14/2020- Left ovarian cyst 3.5cm X 6.5cm in size - Pelvic US 07/29/2020: Thickened endometriu m suspicious for endometria l carcinoma. Left ovary 6.1 X 4.9 X 7.1 cm cyst adenoma or cyst adenocarci noma - 08/23/2020: CA 125: 6 (N) Going for robotic lap. hysterecto my at [facility] on 09/16/2020. Endometrium thickened 44 4096710 R93.89 Per Pelvic US 07/29/2020 Going for robotic lap. hysterecto my at [facility]. Mass of ri ght parotid gland [id number] 8167048 R22.1 Incidental finding per MRI brain 07/14/2020 ( [facility] workup) - Seen oncologist Dr. Sol - CT soft tissue ( 08/2020): Asymmetric aeration of the piriform sinuses. There is soft tissue thickening in the left piriform sinus. Asymmetric aeration of the vallecula. Question of soft tissue nodularity at the base of the tongue projecting into the left piriform sinus (consider esophogram ). She complete antibiotic Plan: - Refer to ENT - Esophagram . Benign ess ential hypertension 7887483 I10 Under control with BP 136/78 Now on: -Amlodipin e 10mg/d -Lisinopri l 20mg/d Will observe. Chronic ki dney disease stage 3 575160550 N18.31 Stable per labs 08/23/2020: Cr 1.09, GFR 51 07/14/2020(P B admit) 1.03, GFR >60 05/17/2020: creat 1.17 GFR 41 10/09/2019: creat 1.10 GFR 49 Kidney US 06/10/2020: Question normal variant lobulation vs isoechoic mass left kidney (3.3cmX 2.79cm) Will observe. Ex-smoker 2634176 Z87.89 1 Smoked for 53 years and quit 02/01/2020 . Now on: Bupropion SR 150 mg bid to cut back Psoriasis 6877444 L40.9 Extended Hx Using triamcinol one cream and Vaseline She finds that the silvadene cream helps with discomfort Was refer to derm. We recommend Rx trial on f/u. Imaging of lung abnormal 753016459 R91.8 LDCT 02/2020: Micro nodules Advice on f/u. Osteoarthr itis of knee 825690066 M17.9 Rt > Lt OA. Paroxysmal atrial fibrillation 593444973 I48.0 Was Dx in her 30's with mild few episodes since them. Never on anticoagul ation before. - EKG today: NSR, HR 76 Body mass index 40+ - severely obese 116094887 Z68.41 BMI 40.3 Advice on diet and life stile change. [id number] Akilah Carreno MD OFFICE [address] [place] [address] 07/08/2021 13:16:28 07/08/2021 15:00:02 Endometrium thickened 174063720 R93.89 Per Pelvic US 07/29/2020 s/p robotic lap. hysterecto my at [facility]. Mass of ri ght parotid gland 6263787908 4438130 R22.1 Incidental finding per MRI brain 07/14/2020 ( [facility] workup - CT soft tissue ( 08/2020): Asymmetric aeration of the piriform sinuses. There is soft tissue thickening in the left piriform sinus. Asymmetric aeration of the vallecula. Question of soft tissue nodularity at the base of the tongue projecting into the left piriform sinus (consider esophogram ). Was consider a sialoadeni tis. Resolved after antibiotic use. Benign ess ential hypertension 5069599 I10 Under control with BP 138/80 beside not on Rx > 6 month. Was on: -Amlodipin e 10mg/d -Lisinopri l 20mg/d Will observe without RxLow Na BP monitor. Paroxysmal atrial fibrillation 829122283 I48.0 Was Dx in her 30's with mild few episodes since them. Never on anticoagul ation before. Chronic ki dney disease stage 3 080491917 N18.31 Improved per new labs2021: Cr. 0.97, GFR 59 Prior labs:2020: Cr 1.09, GFR 51 07/14/2020(P B admit) 1.03, GFR >60 05/17/2020: creat 1.17 GFR 41 10/09/2019: creat 1.10 GFR 49 Kidney US 06/10/2020: Question normal variant lobulation vs isoechoic mass left kidney (3.3cmX 2.79cm) Will observe. Imaging of lung abnormal 927999835 R91.8 LDCT 02/2020: Micro nodules Seen at [facility] t Lung associated and plan on f/u CT. Psoriasis 3410211 L40.9 Extended Hx Using triamcinol one cream and Vaseline She finds that the silvadene cream helps with discomfort Was refer to derm. Osteoarthr itis of knee 677415956 M17.9 Rt > Lt OA. Adult heal th examination 424548102 Z00.00 COA Completed Last Colonoscop y: 04/2000 per pt Last Mammo: 06/2020 wnl Last DXA: 06/2020 Last Foot Exam: 07/2021 Last EK08/2020 Living Will and Healthcare Surrogate completed Complex ovarian cyst 725 4074517 03 N83.299 s/p robotic lap hysterecto my on 09/2020 in [facility] Incidental finding of large left ovarian cyst - CT A&P 07/14/2020- Left ovarian cyst 3.5cm X 6.5cm in size - Pelvic US 07/29/2020: Thickened endometriu m suspicious for endometria l carcinoma. Left ovary 6.1 X 4.9 X 7.1 cm cyst adenoma or cyst adenocarci noma - 08/23/2020: CA 125: 6 (N) Body mass index 30+ - obesity 650261689 Z68.38 BMI 38.4 Advice on diet and life stile change. Hiatal her vamsi with gastroesophageal reflux 579540195 K21.9 Stable now on Omeprazole prn. Small hiatal hernia per CT 07/2020 Renal mass 963912808 N28 .89 Per kidney US 06/10/2020: Question normal variant lobulation vs isoechoic mass left kidney (3.3cmX 2.79cm) CT A&P 07/12/2020: no kidney mass noted Anemia 706843011 D64.9 Stable Hx of anemia in remote past during . She also recalls taking vitamin shots in past. 06/28/2021 : HH 12.2/36.9, Iron wnl Prior labs:*2020 ( [facility]) : HH 12.4/39.3* 05/2020: HH 11.1/33.5 MCV 90.5 10/2019: HH 12.8/38.6 Pt denies abnormal bleeding Plan Check iron panel, ferritin, B12 Was referred to update colonoscop y at last visit ( 05/2020) Venous varices 543930562 I83.93 Extensive hx Risk factor due to smoking 02/2020: US venous - no evidence of DVT Obstructiv e sleep apnea syndrome 80633317 G47.33 On CPAP Last sleep study 05/2020 Migraine 45943765 G43.90 9 Extensive hx Stable on sumatripta n 50 mg PRN Screening for malignant neoplasm of colon 721024214 Z12.11 Last colonoscop y 1999 - normal per patient report Was referred 05/2020 to udpate colonoscop y and will refer. Senile osteopenia 300143 06 M85.80 Mild per recent dexa Dexa 06/2020: LS -0.1 LFN -1.6 TH -1.0 Tobacco user 780651649 Z 72.0 Smoked for 53 years and quit 02/01/2020 and them restart on 11/2020 Was on: - Bupropion SR 150 mg bid in the pass and agree to restart to help to quit this time. Chronic ob structive pulmonary disease 20988783 J44.9 Stable on combinatio n Rx. Seen at [facility]. Tremor 41059781 R25.1 Notice since few yrs restring tremor in upper ext. Agree on Primidone trial. [id number] Akilah Carreno MD OFFICE [address] [place] [address] 07/18/2021 12:35:13 07/18/2021 13:12:01 Benign essential hypertension 4422655 I10 Under control with BP 128/80 Was on: -Amlodipin e 10mg/d -Lisinopri l 20mg/d Will observe without Rx- Low Na - BP monitor. Paroxysmal atrial fibrillation 926141243 I48.0 Was Dx in her 30's with mild few episodes since them. Never on anticoagul ation before. Body mass index 30+ - obesity 094445540 Z68.38 BMI 38.4 Advice on diet and life stile change. Pain of ri ght shoulder joint 3324155566 8464808 M25.511 Seen on today for RT shoulder pain that radiates to the chest and arm. Patient is experienci ng numbness in the RT arm since onset of shoulder pain. Paresthesi a of upper limb 02549569 R20.2 associated with above. H/S mild radiculopa thy. [id number] Dominik Mustafa PA-C OFFICE [address] [place] [address] 07/28/2021 09:14:10 07/28/2021 10:41:23 History of hemorrhagic cerebrovascular accident with residual deficit 5030049657 20110 Z86.79 Peripheral vision sequela, hemorrhagi c stroke right occipital lobe. Prior MRI w/out evidence of AV malformati on, aneurysm, or other predisposi ng factors BP control will be critical in this patient, we encourage close f/u Weakness present 0848343 07 M62.81 s/p CVA w/ hospital stay. Debility likely d/t deconditio stew. Today using walker Plan:- send for HHC and PT/OT Nausea 061909548 R11.0 Since taking antiobioti c, now on cefdinir for UTI - Ondansetro n for nausea as needed- Probiotics Gastroesop hageal reflux disease 136959596 K21.9 Will trial on PPI Benign ess ential hypertension 6969739 I10 Borderline today 138/88 (No Rx today) Was recommende d in hospital:- Valsartan 80 - HCTZ 12.5 mg tab- Metoprolol T 12.5 mg BID We advise continue Plan: - Close home monitor, RTC in 2 weeks for BP check - Low Na diet Chronic ki dney disease stage 3 180761088 N18.31 Advise update labs given recent extended hospital stay Mass of ri ght parotid gland 4151254493 5344484 R22.1 Incidental finding per MRI brain 07/14/2020 ([facility] workup) - CT soft tissue ( 08/2020): Asymmetric aeration of the piriform sinuses. There is soft tissue thickening in the left piriform sinus. Asymmetric aeration of the vallecula. Question of soft tissue nodularity at the base of the tongue projecting into the left piriform sinus (consider esophogram ). Was consider a sialoadeni tis. Resolved after antibiotic use. Also seen on MRI while recently in hospital Paroxysmal atrial fibrillation 022629007 I48.0 Was noted some episodes of SVT while in hospital. Reported no Afib Now on Metoprolol 12.5 mg BID Will check TSH No anticoagul ation at this time d/t recent hemorrhagi c stroke Acute urin kendall tract infection 070007126 N39.0 Was treated in hospital, now on cefdinir Complete course of Abx [id number] Akilah Carreno MD OFFICE [address] [place] [address] 08/01/2021 09:31:54 08/01/2021 16:23:21 Benign essential hypertension 0878855 I10 Report elevated BP in the last few days, up to SBP 180 Now on: - Valsartan 80 - HCTZ 12.5 mg tab- Metoprolol T 12.5 mg BID Plan:- increase Valsartan/ HCTZ to 160/25 mg/d- Close home monitor, RTC in few days if not controlled - Low Na diet History of hemorrhagic cerebrovascular accident with residual deficit 8598154422 38263 Z86.79 Peripheral vision sequela, hemorrhagi c stroke right occipital lobe. Prior MRI w/out evidence of AV malformati on, aneurysm, or other predisposi ng factors. BP control will be critical in this patient, we encourage close f/u Paroxysmal atrial fibrillation 209750377 I48.0 Was noted some episodes of SVT while in hospital. Reported no Afib Now on Metoprolol 12.5 mg BID Will check TSH No anticoagul ation at this time d/t recent hemorrhagi c stroke Weakness present 0427489 07 M62.81 After recent CVA. Was refer to PT/ HHC. [id number] ADAN GalvanC OFFICE [address] [place] [address] 08/11/2021 16:18:40 08/11/2021 17:47:17 Benign essential hypertension 9183450 I10 Borderline on BP log review. Today 128/76. Now on:- Valsartan 160 - HCTZ 25 mg tab- Metoprolol T 12.5 mg BID Plan:- Add Amlodipine 5 mg- Low Na diet History of hemorrhagic cerebrovascular accident with residual deficit 4544207209 60650 Z86.79 Peripheral vision sequela, hemorrhagi c stroke right occipital lobe. Prior MRI w/out evidence of AV malformati on, aneurysm, or other predisposi ng factors. BP control will be critical in this patient, we encourage close f/u Will send HHC w/ PT/OT Was referred to Neuro, we provide number Paroxysmal atrial fibrillation 903398002 I48.0 Was noted some episodes of SVT while in hospital. Reported no Afib Now on Metoprolol 12.5 mg BID Will check TSH No anticoagul ation at this time d/t recent hemorrhagi c stroke Weakness present 9306843 07 M62.81 After recent CVA. Was refer to PT/ HHC. Tremor 78391536 R25.1 Was previously recommende d Primidone, we advise on trial Psoriasis 6484820 L40.9 Renew Rx [id number] LAMINE QUINONEZ PA-C OFFICE [address] [place] [address] 11/07/2021 13:58:56 11/07/2021 15:17:41 Benign essential hypertension 3632849 I10 Well controlled 122/72 Was recommende d in hospital:- Valsartan 80 - HCTZ 12.5 mg tab- Metoprolol T 12.5 mg BID We advise continue Plan: - Close home monitor, RTC in 2 weeks for BP check - Low Na diet Gastroesop hageal reflux disease 071692607 K21.9 Stable on Omeprazole 20mg/d Chronic ki dney disease stage 3 202493279 N18.31 Drop in kidney function per new labs 022 creat 1.53 GFR 334/2021 (PB) creat 0.99 GFR 552/2020: creat 1.17 GFR 46 Note started Valsartan/ HCTZ in 07/2021 during hospital stay PlanRepeat BMP with improved hydrationA void NSAIDSWill consider adjusting Valsartan/ HCTZ if still persistent Check baseline kidney US Mass of ri ght parotid gland 3356668742 4250596 R22.1 Incidental finding per MRI brain 07/14/2020 ([facility] workup) - CT soft tissue ( 08/2020): Asymmetric aeration of the piriform sinuses. There is soft tissue thickening in the left piriform sinus. Asymmetric aeration of the vallecula. Question of soft tissue nodularity at the base of the tongue projecting into the left piriform sinus (consider esophogram ). Was consider a sialoadeni tis. Resolved after antibiotic use. Also seen on MRI while recently in hospital Paroxysmal atrial fibrillation 663940821 I48.0 Was noted some episodes of SVT while in hospital. Reported no Afib Now on Metoprolol 12.5 mg BID 10/2021: TSH wnl Not anticoagul ation at this time d/t recent hemorrhagi c stroke History of hemorrhagic cerebrovascular accident with residual deficit 0240420632 94976 Z86.79 Peripheral vision sequela, hemorrhagi c stroke right occipital lobe. Prior MRI w/out evidence of AV malformati on, aneurysm, or other predisposi ng factors. BP control will be critical in this patient, we encourage close f/u Completed HHC w/ PT/OT Tremor 85422509 R25.1 Stable OnPrimidon e 50mg qhs Psoriasis 1878211 L40.9 On Betamethas one ointment Anemia 844130827 D64.9 Stable Hx of anemia in remote past during . She also recalls taking vitamin shots in past.2021: HH 11.3, 33.34/10/26 21 ( [facility]) : HH 12.4/39.3* 05/2020: HH 11.1/33.5 MCV 90.5 10/2019: HH 12.8/38.6 Pt denies abnormal bleeding Plan Check iron panel, ferritin, B12 Hyperlipidemia 62139138 E78.5 Mild per labs 10/24/2021: LDL 135, Trig 116, HDL 663/2021: LDL 109, Trig 77, HDL 51 PlanAdvise d low fat diet Hyperhomocysteinemia 419 679273 E72.11 Per hx Thrombophilia 475502895 D68.69 Hx of afib Ex-smoker 3942209 Z87.89 1 Smoked for 53 years quit 07/2021 Now on Bupropion SR 150 mg bid to cut back XR chest DCT 02/2020: [place] [facility] LDCT screening Screening for malignant neoplasm of respiratory tract 096261305 Z12.2 Will screen Screening for malignant neoplasm of colon 462932721 Z12.11 Last colonoscop y 2000 - normal per patient report Was referred 07/2021 to update colonoscop y. Strongly recommend to schedule appt moe Screening for malignant neoplasm of breast 534701015 Z12.39 Last mammo 06/2020 Plan Update mammo Chronic diarrhea 8567583 09 K52.9 Pt states she has chronic watery diarrhea. recently reports sensation of worms . Denies seeing worms in stool Denies fever, chills, abdominal pain, blood in stool [facility] stool culture [id number] LAMINE QUINONEZ PA-C OFFICE [address] [place] [address] 11/29/2021 13:44:02 11/29/2021 14:53:41 Chronic kidney disease stage 3 753815944 N18.31 Stable per new labs. 11/23/2021: creat 1.77, GFR 307/ 2 creat 1.53 GFR 334/2021 ([facility]) creat 0.99 GFR 55/2020: creat 1.17 GFR 46 Note started Valsartan/ HCTZ in 07/2021 during hospital stay kidney US 11/2021: no PlanWe recommende d to discontinu e HCTZ and decrease Valsartan. Switch to hydralazin e. Pt strongly refused. Asked if she could first repeat the labs with better hydration and then she will agree to switch. Avoid NSAIDS Anemia 623967117 D64.9 Stable Hx of anemia in remote past during . She also recalls taking vitamin shots in past.2021: HH 11.1 32.1 Normal Iron and ferritin 328 (N) Prior labs 022: HH 11.3, 33.34/10/26 21 ( [facility]) : HH 12.4/39.3* 05/2020: HH 11.1/33.5 MCV 90.5 10/2019: HH 12.8/38.6 Pt denies abnormal bleeding PlanWill monitorShe has been referred to GI to update colonoscop y Benign ess ential hypertension 0432490 I10 Well controlled 110/70 Was recommende d in hospital:- Valsartan 80 - HCTZ 12.5 mg tab- Metoprolol T 12.5 mg BID We advise continue Plan: - Close home monitor, RTC in 2 weeks for BP check - Low Na diet Major depr essive disorder 546806901 F32.9 Worse lately. Cries oftenDenie s significan t anxiety. She has been on Sertraline before without problems PlanRestar t sertraline 50mg/d History of hemorrhagic cerebrovascular accident with residual deficit 8418268783 13046 Z86.79 Peripheral vision sequela, hemorrhagi c stroke right occipital lobe. Prior MRI w/out evidence of AV malformati on, aneurysm, or other predisposi ng factors. BP control will be critical in this patient, we encourage close f/u Completed HHC w/ PT/OT [id number] JULY ZACHARIAH QUINONEZ OFFICE [address] [place] [address] 12/06/2021 07:56:36 12/06/2021 16:26:02 Chronic kidney disease stage 3 286374508 N18.31 Poor control per last labs 11/23/2021: creat 1.77, GFR 307/ 2 creat 1.53 GFR 334/2021 ([facility]) creat 0.99 GFR 552/2020: creat 1.17 GFR 46 Note started Valsartan/ HCTZ in 07/2021 during hospital stay kidney US 11/2021: normal PlanWe recommende d to discontinu e HCTZ and decrease Valsartan. Switch to hydralazin e. Pt strongly refused any medication changes at this time. Asked if she could first repeat the labs in a couple of weeks with better hydration first. Then she will agree to switch Avoid NSAIDS Anemia 535308600 D64.9 Stable Prior labs 022: HH 11.1 32.1 Normal Iron and ferritin 328 (N)10/25/19 22: HH 11.3, 33.34/10/26 21 ( [facility]) : HH 12.4/39.3* 05/2020: HH 11.1/33.5 MCV 90.5 10/2019: HH 12.8/38.6 Pt denies abnormal bleeding PlanWill monitorShe has been referred to GI to update colonoscop y Benign ess ential hypertension 9812934 I10 Well controlled On- Valsartan 80 - HCTZ 12.5 mg tab- Metoprolol T 12.5 mg BID We advise continue Plan: - Close home monitor - Low Na diet Major depr essive disorder 780244046 F32.9 Improving since restarting Sertraline Denies significan t anxiety. Now onSertrali ne 50mg qd She has been on Sertraline before without problems History of hemorrhagic cerebrovascular accident with residual deficit 5860070513 75475 Z86.79 Peripheral vision sequela, hemorrhagi c stroke right occipital lobe. Prior MRI w/out evidence of AV malformati on, aneurysm, or other predisposi ng factors. BP control will be critical in this patient, we encourage close f/u Completed [facility] w/ PT/OT Was referred to Dr. Lynn 11/2021 Fatigue 27249424 R53.83 Worse lately PlanCheck [id number] TSH Paroxysmal atrial fibrillation 017204062 I48.0 Was noted some episodes of SVT while in hospital. Reported no Afib Now on Metoprolol 12.5 mg BID 10/2021: TSH wnl Not anticoagul ation at this time d/t recent hemorrhagi c stroke Hyperlipidemia 20973877 E78.5 Mild per labs Prior labs 022: LDL 135, Trig 116, HDL 663/2021: LDL 109, Trig 77, HDL 51 PlanAdvise d low fat diet Mass of ri ght parotid gland 3807922749 7116690 R22.1 Incidental finding per MRI brain 07/14/2020 ([facility] workup) - CT soft tissue ( 08/2020): Asymmetric aeration of the piriform sinuses. There is soft tissue thickening in the left piriform sinus. Asymmetric aeration of the vallecula. Question of soft tissue nodularity at the base of the tongue projecting into the left piriform sinus (consider esophogram ). Was consider a sialoadeni tis. Resolved after antibiotic use. Also seen on MRI while recently in hospital Gastroesop hageal reflux disease 525946773 K21.9 Stable on Omeprazole 20mg/d Tremor 31733799 R25.1 Stable OnPrimidon e 50mg qhs Psoriasis 9892961 L40.9 On Betamethas one ointment Hyperhomocysteinemia 419 752079 E72.11 Per hx Thrombophilia 362123055 D68.69 Hx of afib Ex-smoker 4795863 Z87.89 1 Smoked for 53 years quit 07/2021 Now on Bupropion SR 150 mg bid to cut back XR chest DCT 02/2020: [place] es[place]c k LDCT screening Screening for malignant neoplasm of respiratory tract 390831073 Z12.2 Will screen LDCT ordered 11/07/2021 and PENDING Screening for malignant neoplasm of colon 358268568 Z12.11 Last colonoscop y 2000 - normal per patient report Was referred 07/2021 and 11/2021 to update colonoscop y. Strongly recommend to schedule appt moe Screening for malignant neoplasm of breast 449760642 Z12.39 Last mammo 06/2020 Mammo ordered 11/07/2021 and PENDING [id number] LAMINE QUINONEZ PA-C OFFICE [address] [place] [address] 01/11/2022 09:07:25 01/11/2022 10:34:25 Benign essential hypertension 0846387 I10 BP 116/78 On- Valsartan 80 - HCTZ 12.5 mg tab- Metoprolol T 12.5 mg BID- Amlodipine 5mg/d We advise continue (Note Lisinopril 20mg was refilled accidental ly by pharmacy 11/2021- patient is not taking) Plan:Disco ntinue HCTZDecrea se Valsartan 40mg/dIncr ease Amlodipine 10mg/dClos e home monitor with follow up in a couple of weeks Pt instructed to call office in interim if BP elevated above 140/90 ( strict BP control in this patient) Low Na diet Paroxysmal atrial fibrillation 103126806 I48.0 Was noted some episodes of SVT while in hospital. Reported no Afib Now on Metoprolol 12.5 mg BID 12/2021: TSH wnl Not anticoagul ation at this time d/t recent hemorrhagi c stroke History of hemorrhagic cerebrovascular accident with residual deficit 4992352511 27936 Z86.79 Peripheral vision sequela, hemorrhagi c stroke right occipital lobe. Prior MRI w/out evidence of AV malformati on, aneurysm, or other predisposi ng factors. BP control will be critical in this patient, we encourage close f/u Completed [facility] w/ PT/OT Has appt with Dr. Lynn 01/15/2022. Chronic ki dney disease stage 3 504246606 N18.31 Poor function per new labs despite adequate hydrationS table 01/02/2022: creat 1.71, GFR 328/ 2: creat 1.77, GFR 307/ 2 creat 1.53 GFR 334/2021 ([facility]) creat 0.99 GFR 5505/2020: creat 1.17 GFR 46 Note started Valsartan/ HCTZ in 07/2021 during hospital stay kidney US 11/2021: normal PlanDiscon tinue HCTZ and decrease Valsartan. Avoid NSAIDSIncr ease hydration Anemia 123587977 D64.9 Stable01/02: HH 11.1/32.5 Normal iron and ferritin 254 (N)Prior labs 022: HH 11.1 32.1 Normal Iron and ferritin 328 (N)10/25/19 22: HH 11.3, 33.34/10/26 21 ( [facility]) : HH 12.4/39.3* 05/2020: HH 11.1/33.5 MCV 90.5 10/2019: HH 12.8/38.6 Pt denies abnormal bleeding PlanWill monitorShe has been referred to GI to update colonoscop y Hyperlipidemia 24130971 E78.5 Mild per last labs Prior labs 022: LDL 135, Trig 116, HDL 663: LDL 109, Trig 77, HDL 51 PlanAdvise d low fat diet Major depr essive disorder 257047808 F32.0 Improving since restarting Sertraline Denies significan t anxiety. Now onSertrali ne 50mg qd She has been on Sertraline before without problems Fatigue 31427529 R53.83 Worse lately B12 low per new labs Mass of ri ght parotid gland 0056216189 5353636 R22.1 Incidental finding per MRI brain 07/14/2020 ([facility] workup) - CT soft tissue ( 08/2020): Asymmetric aeration of the piriform sinuses. There is soft tissue thickening in the left piriform sinus. Asymmetric aeration of the vallecula. Question of soft tissue nodularity at the base of the tongue projecting into the left piriform sinus (consider esophogram ). Was consider a sialoadeni tis. Resolved after antibiotic use. Also seen on MRI while recently in hospital Gastroesop hageal reflux disease 289513671 K21.9 Stable on Omeprazole 20mg/d Tremor 49255155 R25.1 Stable OnPrimidon e 50mg qhs Psoriasis 6251257 L40.9 On Betamethas one ointment Hyperhomocysteinemia 419 329114 E72.11 Per hx Thrombophilia 358398618 D68.69 Hx of afib Ex-smoker 9405489 Z87.89 1 Smoked for 53 years quit 07/2021 Now on Bupropion SR 150 mg bid to cut back XR chest DCT 11/2021: Stable micronodul es Screening for malignant neoplasm of respiratory tract 062642784 Z12.2 LDCT 11/2021: stable micronodul esLDCT 02/2020: Micronodul es Screening for malignant neoplasm of colon 647939836 Z12.11 Last colonoscop y 1999 - normal per patient report Was referred 07/2021 and 11/2021 to update colonoscop y. Strongly recommend to schedule appt moe Screening for malignant neoplasm of breast [id number] Z12.39 Last mammo 11/2021: Normal Cobalamin deficiency 190 138413 E53.8 Per labs 022: B12 237 folate 10.6 PlanStart B12 supplement daily Obstructiv e sleep apnea syndrome 96564955 G47.33 On CPAP Last sleep study 05/2020 Morbid obesity 754041547 E66.01 BMI 39.8 820342 [facility] [address] [place] [address] 01/25/2022 09:39:24 01/25/2022 11:54:49 Benign essential hypertension 1338001 I10 BP 116/78 Now on:Valsart an 40mg/dAmlo dipine 10mg/dMeto prolol 25mg 1/2 tab bid Last visit 01/11/2022 - Discontinu e HCTZ-Decre ase Valsartan 40mg/d ( from 80mg/d)-In crease Amlodipine 10mg/d ( from 5mg/d) (Note Lisinopril 20mg was refilled accidental ly by pharmacy 11/2021- patient is not taking) Plan:Danisha sarmad current regimenCon tinue BP monitor Paroxysmal atrial fibrillation 718954726 I48.0 Was noted some episodes of SVT while in hospital. Reported no Afib Now on Metoprolol 12.5 mg BID 12/2021: TSH wnl Not anticoagul ation at this time d/t recent hemorrhagi c stroke History of hemorrhagic cerebrovascular accident with residual deficit [id number] 33196 Z86.79 Peripheral vision sequela, hemorrhagi c stroke right occipital lobe. Prior MRI w/out evidence of AV malformati on, aneurysm, or other predisposi ng factors. BP control will be critical in this patient, we encourage close f/u Completed HHC w/ PT/OT Now seeing Dr. Lynn - last seen on 01/15/2022. New MRI brain ordered Chronic ki dney disease stage 3 254719923 N18.31 Repeat labs ordered but not done. 01/02/2022: creat 1.71, GFR 328/ 2: creat 1.77, GFR 307/ 2 creat 1.53 GFR 334/2021 ([facility]) creat 0.99 GFR 5505/2020: creat 1.17 GFR 46 Note started Valsartan/ HCTZ in 07/2021 during hospital stay kidney US 11/2021: normal Anemia 191658217 D64.9 Stable Prior labs 022: HH 11.1/32.5 Normal iron and ferritin 254 (N)11/24/19 22: HH 11.1 32.1 Normal Iron and ferritin 328 (N)10/25/19 22: HH 11.3, 33.34/10/26 21 ( [facility]) : HH 12.4/39.3* 05/2020: HH 11.1/33.5 MCV 90.5 10/2019: HH 12.8/38.6 Pt denies abnormal bleeding [facility] 72558470 E78.5 Mild per last labs Prior labs 022: LDL 135, Trig 116, HDL 66/2021: LDL 109, Trig 77, HDL 51 PlanAdvise d low fat diet Major depr essive disorder 519726002 F32.0 Improving since restarting Sertraline Denies significan t anxiety. Now onSertrali ne 50mg qd Fatigue 10217641 R53.83 Started B12 supplement 01/11/2022 ome improvemen t in fatigue Will monitor Cobalamin deficiency 190 317605 E53.8 Per last labs 022: Started on B12 supplement 01/02/2022: B12 237 folate 10.6 Mass of ri ght parotid gland [id number] 4589845 R22.1 Incidental finding per MRI brain 07/14/2020 ([facility] workup) - CT soft tissue ( 08/2020): Asymmetric aeration of the piriform sinuses. There is soft tissue thickening in the left piriform sinus. Asymmetric aeration of the vallecula. Question of soft tissue nodularity at the base of the tongue projecting into the left piriform sinus (consider esophogram ). Was consider a sialoadeni tis. Resolved after antibiotic use. Also seen on MRI while recently in hospital Gastroesop hageal reflux disease 989794687 K21.9 Stable on Omeprazole 20mg/d Tremor 84842870 R25.1 Stable OnPrimidon e 50mg bid ( can take up to tid if needed) Psoriasis 9396571 L40.9 On Betamethas one ointment Hyperhomocysteinemia 419 685989 E72.11 Per hx Thrombophilia 123998774 D68.69 Hx of afib Ex-smoker 7559569 Z87.89 1 Smoked for 53 years quit 07/2021 Now on Bupropion SR 150 mg bid to cut back XR chest DCT 11/2021: Stable micronodul es PlanDiscus sed tremors - trial of discontinu ing Wellbutrin to see if tremors improve.Fo llow up in 3 weeks Screening for malignant neoplasm of respiratory tract 867821003 Z12.2 LDCT 11/2021: stable micronodul esLDCT 02/2020: Micronodul es Screening for malignant neoplasm of colon 446990648 Z12.11 Last colonoscop y 01/2022: Normal per patient Screening for malignant neoplasm of breast 052362919 Z12.39 Last mammo 11/2021: Normal Obstructiv e sleep apnea syndrome 20261371 G47.33 On CPAP Last sleep study 05/2020 Morbid obesity 765453786 E66.01 BMI 39.9 Gastric reflux 444801127 K21.9 Stable on Rx PRN and diet [id number] Dominik Mustafa PA-C OFFICE [address] [place] [address] 02/06/2022 08:46:53 02/06/2022 09:32:31 Chronic kidney disease stage 3 734186537 N18.31 Stable, w/ mild improvemen t now off diuretic. Most likely new baseline 01/2022: Creat 1.48, GFR 389/ 2: creat 1.71, GFR 328/ 2: creat 1.77, GFR 307/ 2 creat 1.53 GFR 334/2021 ([facility]) creat 0.99 GFR 55/2020: creat 1.17 GFR 46 Note started Valsartan/ HCTZ in 07/2021 during hospital stay kidney US 11/2021: normal Advise hydration and avoid NSAIDs Benign ess ential hypertension 3304799 I10 BP 116/78 Now on:Valsart an 40mg/dAmlo dipine 10mg/dMeto prolol 25mg 1/2 tab bid On Visit 01/11/2022 - Discontinu e HCTZ- Decrease Valsartan 40mg/d ( from 80mg/d)- Increase Amlodipine 10mg/d ( from 5mg/d)(Not e Lisinopril 20mg was refilled accidental ly by pharmacy 11/2021- patient is not taking) Plan:Danisha bañuelos current regimenCon tinue BP monitor Paroxysmal atrial fibrillation 488192934 I48.0 Was noted some episodes of SVT while in hospital. Reported no Afib Now on Metoprolol 12.5 mg BID 12/2021: TSH wnl Not anticoagul ation at this time d/t recent hemorrhagi c stroke Monitor for recurrence History of hemorrhagic cerebrovascular accident with residual deficit 3938772401 95418 Z86.79 Peripheral vision sequela, hemorrhagi c stroke right occipital lobe. Prior MRI w/out evidence of AV malformati on, aneurysm, or other predisposi ng factors. BP control will be critical in this patient, we encourage close f/u Completed HHC w/ PT/OT Now seeing Dr. Lynn - last seen on 01/15/2022. New MRI 01/2022, results not available Anemia 497702192 D64.9 Stable Prior labs 022: HH 11.1/32.5 Normal iron and ferritin 254 (N)11/24/19 22: HH 11.1 32.1 Normal Iron and ferritin 328 (N)10/25/19 22: HH 11.3, 33.34/10/26 21 ( [facility]) : HH 12.4/39.3* 05/2020: HH 11.1/33.5 MCV 90.5 10/2019: HH 12.8/38.6 Pt denies abnormal bleeding Last [facility]copy [facility] Hyperlipidemia 13207398 E78.5 Mild per last labs Prior labs: LDL 135, Trig 116, HDL 6606/2021: LDL 109, Trig 77, HDL 51 Plan- Advised low fat diet- Update labs, consider statin if maintains increased Major depr essive disorder 497486657 F32.0 Improving since restarting Sertraline Denies significan t anxiety. Now onSertrali ne 50mg qd Fatigue 34901113 R53.83 Started B12 supplement 01/11/2022 ome improvemen t in fatigue Will monitor Cobalamin deficiency 190 661713 E53.8 Per last labs 022: Started on B12 supplement 01/02/2022: B12 237 folate 10.6 Mass of ri ght parotid gland 5055482819 1720156 R22.1 Incidental finding per MRI brain 07/14/2020 ([facility] workup) - CT soft tissue ( 08/2020): Asymmetric aeration of the piriform sinuses. There is soft tissue thickening in the left piriform sinus. Asymmetric aeration of the vallecula. Question of soft tissue nodularity at the base of the tongue projecting into the left piriform sinus (consider esophogram ). Was consider a sialoadeni tis. Resolved after antibiotic use. Also seen on MRI while recently in hospital. Asymptomat ic today. 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 Per hx Thrombophilia 388014247 D68.69 Hx of afib Ex-smoker 3808987 Z87.89 1 Smoked for 53 years quit 07/2021 Now on Bupropion SR 150 mg bid to cut back XR chest DCT 11/2021: Stable micronodul esWas d/c Wellbutrin to see if any improvemen t Screening for malignant neoplasm of respiratory tract 178327278 Z12.2 LDCT 11/2021: stable micronodul esLDCT 02/2020: Micronodul es Screening for malignant neoplasm of colon 843785402 Z12.11 Last colonoscop y 01/2022: Normal, report available Screening for malignant neoplasm of breast 918150790 Z12.39 Last mammo 11/2021: Normal Obstructiv e sleep apnea syndrome 80079914 G47.33 On CPAP Last sleep study 05/2020 Morbid obesity 761263940 E66.01 01/2022: BMI 40.4 #243 Gastric reflux 842009671 K21.9 Stable on Rx PRN and diet Health Concerns Section Related Observation LastModified by Organization Detai ls LastModified Time None Recorded Concern Status LastModified by Organization Details LastModified Time None Recorded Advance Directives Directive N: Payers Insurance Date Sequence Insurance Name Policy Number Policy La Covered Member ID La Member ID Guarantor Name 02/16/2022 1 [employer] (MEDICARE REPLACEMENT HMO) Luz Melgar [id number] Luz Melgar 01/11/2022 [employer] (MEDICARE REPLACEMENT/AD VANTAGE - PPO) Luz Melgar [id number] Luz Melgar 01/11/2022 [employer] (MEDICARE REPLACEMENT/AD VANTAGE - PPO) Luz Melgar [id number] Luz Melgar 01/11/2022 1 [employer] (PPO) Luz Melgar [id number] Luz Melgar Notes Date Note Type Note Provider Name and Address Organization Details Recorded Time 11/29/2021 text/html Pt here for follow up kidney labs and US [address], [place], [address], [facility] [employer] 12/06/2021 08:38:23 12/06/2021 text/html Pt is an established patient. She consents to telehealth visit in place of in office visit due to COVID 19 pandemic Pt reports fatigue [address], [place], [address], [facility] [employer] 12/06/2021 15:40:38 01/11/2022 text/html Pt here for follow up labs [address], [place], [address], [facility] [employer] 01/11/2022 17:45:47 01/25/2022 text/html Pt here for follow up BP log [address], [place], [address], [facility] [employer] 01/25/2022 11:53:33 02/06/2022 text/html Pt presents for f/u labs Dominik honeycutt, [facility] [place] [facility] 02/06/2022 09:37:03 OBGyn Episode No OBEpisode recorded.
--- OUTSIDE RECORDS SUMMARY | 2025-01-27 18:22 | XMS_ITS | Referral Summary ---
Author Organization [employer] ([place], [place], [place], [place]) Address [address] [place] [address] Care Team Providers Care Director Loss Prevention Name Role Phone Unavailable Primary Care Provider Unavailabl e Allergies No known active allergies Medications aspirin 81 MG EC tablet Take 81 mg by mouth daily. Active atorvastatin (LIPITOR) 40 MG tablet Take 1 tablet (40 mg total) by mouth daily. Active tiotropium-olod ateroL (STIOLTO RESPIMAT) 2.5-2.5 mcg/actuation Mist Inhale 2 puffs by mouth via inhaler daily. Active amLODIPine (NORVASC) 10 MG tablet Take 1 tablet (10 mg total) by mouth daily. 4 Active buPROPion (WELLBUTRIN SR) 150 MG 12 hr tablet bupropion HCl SR 150 mg tablet,12 hr sustained-rele ase take 1 tablet (150 mg) by oral route 2 times per day 3 Active famotidine (PEPCID) 40 MG tablet Take 1 tablet (40 mg total) by mouth. 3 Active metoprolol tartrate (LOPRESSOR) 25 MG tablet 3 Active omeprazole (PriLOSEC) 20 MG capsule Take 1 capsule (20 mg total) by mouth daily. 4 Active primidone (MYSOLINE) 50 MG tablet Take by mouth. 4 Active sertraline (ZOLOFT) 100 MG tablet Take 1 tablet (100 mg total) by mouth daily. 4 Active valsartan (DIOVAN) 40 MG tablet Take 1 tablet (40 mg total) by mouth daily. Active aspirin 81 MG EC tablet daily. Active Active Problems Problem Noted Date Diagnosed Date Primary osteoarthritis of both knees 10/23/2023 Chronic pain of both knees 10/23/2023 A-fib Arthritis CAD (coronary artery disease) COPD (chronic obstructive pulmonary disease) Depression Edema Headache HLD (hyperlipidemia) HTN (hypertension) Obesity FLY (obstructive sleep apnea) Palpitations Shortness of breath Social History Tobacco Use Types Packs/Day Years Used Date Smoking Tobacco: Every Day Smokeless Tobacco: Never Tobacco Cessation:Ready to Q uit: Not Asked; Counseling Given: Not Answered Alcohol Use Standard Drinks/Week Comments Yes 0 (1 standard drink = 0.6 oz pur e alcohol) caffeine use Food Insecurity Answer Date Recorded Food run out past 12 months Not on file 06/2023 Food did not last past 12 months Not on file 09/10/2023 Employment Answer Date Recorded Help finding and keeping a job Not on file 0 09/10/2023 Family and Community Support Answer Silvio e Recorded Help with Day to Day Activities Not on file 09/10/2023 Feeling Lonely or Isolated Not on file 09/09 Educational Attainment Answer Date Mike rded Speak language other than Beninese at home Not on file 09/10/2023 Want help with school or training Not on file 09/10/2023 Substance Use Answer Date Recorded Used prescription meds for non-medical reasons N ot on file 09/10/2023 Used illegal drugs past 12 months Not on file 09/10/2023 Comments Unknown Sex and Gender Information Value Date Recorded Sex Assigned at Not on file Legal Sex Female 5:21 PM CDT Gender Identity Not on file Sexual Orientation Not on file Last Filed Vital Signs Vital Sign Reading Time Taken Comments Blood Pressure 130/84 01/03/2024 12:56 PM EDT Pulse 71 01/03/2024 12:56 PM EDT Temperature - - Respiratory Rate - - Oxygen Saturation - - Inhaled Oxygen Concentration - - Weight 112.5 kg (248 lb) 01/03/2024 12:56 PM EDT Height 162.6 cm (5' 4 ) 01/03/2024 12:56 PM EDT Body Mass Index 42.57 01/03/2024 12:56 PM EDT Plan of Treatment Not on file Procedures Procedure Name Priority Date/Time Associated Diagnosis Comments CT LUNG SCREENING INITIAL Routine 11/01/2023 11:12 AM EDT History of tobacco use MM DIGITAL MAMMO SCREEN WITH ALCON BILATERAL Routine 11/01/2023 10:45 AM EDT Screening mammogram for high-risk patient from Last 3 Months or Most Recently Relevant to Health Maintenance Results * CT Lung Screening Initial (11/01/2023 11:12 AM EDT) Anatomical Region Laterality Modality Chest, Lung Computed Tomogra phy (CT) 11/01/2023 2:33 PM EDT Impressions 11/01/2023 2:35 PM EDT No suspicious pulmonary nodule. Lung RADS category 1. 12 month low-dose chest CT recommended. Images reviewed, interpreted, and dictated by Dr. Gilberto Chris. Transcribed by Lida Byrnes PA-C. Narrative 11/01/2023 2:[address] SCAN OF THE CHEST 11/01/2023 10:24 AM HISTORY: Former smoker, quit 2 years prior, 29 pack-year smoking history. COMPARISON: Comparison is made to a previous report dated May 02, 2016. PROCEDURE: Axial images were obtained from the lung apex to the mid abdomen by computed tomography. Low dose protocol was utilized. The CTDIvol is 1.29 mGy. The DLP is 45.9 mGy-cm. This study was performed with techniques to keep radiation doses as low as reasonably achievable, (ALARA). Individualized dose reduction techniques using automated exposure control or adjustment of mA and/or kV according to the patient size were employed. FINDINGS: CHEST: There is no axillary adenopathy. There is no hilar or mediastinal adenopathy. The heart is proper size. There is a trace pericardial effusion. There is no pleural effusion identified. Limited images of the upper abdomen are unremarkable. No suspicious infiltrate or nodule identified. There is lingular atelectasis. Anita Ocampo APRN IMG CT ORDERABLES Final Resu lt * (ABNORMAL) MM digital mammo screen with alcon bilateral (11/01/2023 10:45 AM EDT) Anatomical Region Laterality Modality Breast Bilateral Mammography 11/01/2023 4:40 PM EDT Impressions 11/01/2023 4:45 PM EDT FINAL IMPRESSION: Left breast mass, possibly sebaceous cyst as above. Further evaluation with ultrasound is recommended. BI-RADS: BI-RADS Category 0: Need Additional Imaging Evaluation and/or Prior Mammograms for Comparison RECOMMENDATIONS: Left breast ultrasound. This report will serve as an order for any recommended procedure(s). A letter including results and recommendations was sent to the patient. Density notification was provided to patients with dense breast tissue pattern. Patient information entered into a reminder system with a target due date for the next mammogram. At our facility, a agdaagux marker is positioned over a visible skin lesion and a linear marker is used to indicate a scar. A triangular marker is placed on a self reported palpable finding. Note: Mammography does not detect approximately 10-15% of breast cancers. An annual clinical breast exam by the patient's breast care physician and regular monthly self breast exams by the patient are integral parts of breast cancer screening, in addition to annual mammography. A normal mammogram does not completely exclude the presence of breast cancer, especially if there is an abnormal finding on physical exam. When clinically indicated, a biopsy should not be deferred because of a normal mammogram report. Narrative 11/01/2023 4:45 PM EDT PROCEDURE: Bilateral digital screening mammogram with tomosynthesis. REASON FOR EXAM: Routine screening. Patient reports a subcutaneous lesion in the lower inner posterior third left breast, which the technologist marked. FAMILY HISTORY: No family with history of breast cancer. COMPARISON STUDY: None available. The patient does not recall where her prior mammograms were performed. FINDINGS: Craniocaudal and mediolateral oblique images were obtained in 2D, C-view, and 3D modes. This examination was reviewed with the benefit of computer-aided detection (CAD). There are scattered areas of fibroglandular density. There is an oval isodense mass versus skin lesion corresponding to the circular marker in the lower inner posterior third of the left breast near the chest wall/cleavage. This may reflect a sebaceous cyst but is not conclusive on mammography. Anita Ocampo APRN IM MAMMOGRAPHY ORDERABLES F inal Result from Last 3 Months or Most Recently Relevant to Health Maintenance Insurance
--- OUTSIDE RECORDS SUMMARY | 2025-01-27 18:22 | XMS_ITS | Data Portability ---
Author Organization [facility] Address [address] [place] [address] [address] [place] [address] Care Team Providers Care [employer] Certified Internetwork Expert Name Role Phone AUSTIN ANTONY Primary Care Provider [phone] Assessment No assessment recorded. Plan of Treatment Reminders Order Date Submit Date Provider Last Modified By Organization Details Last Modified Time Details Appointments None record ed. Lab None record ed. Referral None record ed. Procedures None record ed. Surgeries None record ed. Imaging None record ed. Medication Orders None record ed. Patient TargetsNo targets recorded. Patient Instructions Encounter Date Encounter Id Patient Instructions Last Modified By Organization Details Last Modified Time 06/04/2024 [id number] 1. Audiogram obtained in office today. Results reviewed and discussed with patient. 2. Recommended HAE and HAs. 3. Follow up prn. [email or web address] Not available 06/04/2024 16:02:07 concerns about hearing loss; audiogram shows moderate SNHL in all the speech frequencies; excellent candidate for hearing aids; will consider and contact us with her decision [email or web address] Not available 06/04/2024 16:16:12 Reason for Referral None Reported. Results Created Date Observation Date Name Description Value Unit Range Abnormal Flag Note LastModifiedBy Organization Detail LastModifiedTime 06/05/1906/04/2024 audio gram No observ ation record ed. BARCODE Not Available 2024 08:37:06 Result Notes None recorded. Problems No Known Problems Procedures Surgical History Date Name Laterality Status Provider Name and Address Organization Details Recorded Time Tympanogram completed GEMA MERCEDES, [place] [address] [place], [address], [facility] 06/04/2024 15:57:38 Audiogram completed GEMA JACKSON MAGO, [place] [address] [place], [address], [facility] 06/04/2024 15:57:36 Imaging Results None recorded. Procedure Notes None recorded. Medical Equipment None Reported. Allergies No known drug allergies Medications Name Sig Start Date Stop Date Status Note LastModified by Organization Details LastModified Time sertraline active Not Available Not Av ailable Not Available atorvastatin 025 active Not Available Not Available Not Avai lable valsartan active Not Available Not Loretta ilable Not Available albuterol active Not Available Not Loretta ilable Not Available omeprazole active Not Available Not Av ailable Not Available famotidine active Not Available Not Av ailable Not Available amlodipine active Not Available Not Av ailable Not Available primidone active Not Available Not Loretta ilable Not Available metoprolol succinate active Not Available Not Available No t Available bupropion HBr active Not Available Not Available Not Available Vitals Date Recorded Body height Body mass index (BMI) Body weight Body temperature Heart rate Systolic And Diastolic Provider Name and Address Organization Details Last Updated DateTime 162.56 cm 42.4 kg/m2 695187. 32 g 97.4 [degF] 71 /min 134/74 mm[Hg] Elena Coronadenise [facility] 15:46:05 Social History None recorded. Functional Status None recorded. Mental Status None recorded. Family History Nothing Reported. Medical History No medical history recorded. Gynecological HistoryNo gynecological history recorded. Obstetrics History GPAL:G 0 P 0 0 0 0 Past Encounters Encounter ID Performer Location Encounter Start Date Encounter Closed Date Diagnosis/Indication Diagnosis SNOMED-CT Code Diagnosis ICD10 Code Diagnosis IMO Codes Diagnosis Note [id number] MD MARITZA [facility]GE [facility] [address] [place] [address] 06/04/2024 14:52:20 06/04/2024 16:07:39 Sensorineural hearing loss of bilateral ears 160955349 H90.3 [id number] GEMA MERCEDES, [place] [facility] [address] [place] [address] 06/04/2024 15:56:15 06/04/2024 16:04:40 Sensorineural hearing loss of bilateral ears 608736452 H90.3 Health Concerns Section Related Observation LastModified by Organization Detai ls LastModified Time None Recorded Concern Status LastModified by Organization Details LastModified Time None Recorded Advance Directives Directive None Recorded Payers Insurance Date Sequence Insurance Name Policy Number Policy La Covered Member ID La Member ID Guarantor Name 06/04/2024 1 [place]MED[place]AC[place] HMO) [id number] Luz Melgar [id number] Luz Melgar 08/08/2024 1 [place]MED[place] H[place]) [id number] Luz Melgar [id number] Luz Melgar Notes Date Note Type Note Provider Name and Address Organization Details Recorded Time 06/04/2024 text/html ROS as noted in the HPI Luz Melgar (74F) visits our office for an evaluation of sensorineural hearing loss of bilateral ears.Luz notices some deficits in her hearing and would like her hearing evaluated. She often has to ask others around her to repeat themselves. JESI SUTHERLAND MD [facility] [facility], [place], [address], [facility] 06/04/2024 16:16:26 OBGyn Episode No OBEpisode recorded.
--- OUTSIDE RECORDS SUMMARY | 2025-01-27 18:22 | XMS_ITS | Clinical Summary ---
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 Name Role Phone Unavailable Primary Care Provider [...] (obstructive sleep apnea) Palpitations Shortness of breath Family History Medical History Relation Name Comments Cancer Father Hypertension Maternal Grandfather Diabetes Maternal Grandmother Ulcers Maternal Grandmother Relation Name Status Comments Father Maternal Grandfather Maternal Grandmother Social History Tobacco Use Types Packs/Day Years [...] Date Mike rded Speak language other than Colombian at home Not on file 09/10/2023 Want [...] 01/03/2024 12:56 PM EDT Plan of Treatment Health Maintenance Due Date Last Done Comments CT Colonography 1950 Colonoscopy 1950 Colorectal Cancer Screening 1950 DXA SCAN 1950 FOBT/FIT 1950 Fit-DNA (Cologuard) 1950 Sigmoidoscopy 1950 Hepatitis C Screening 1968 DTAP/TDAP/TD VACCINES (1 - Tdap) 1969 Shingles Vaccine (Zoster) (1 of 2) 2000 Respiratory Syncytial Virus (RSV) Adult or (1 - Risk 60-74 years 1-dose series) 2010 Falls Risk Screening 04/09/2024 Medicare Initial AWV G0438 04/10/2024 Lung Cancer Screening 10/31/2024 11/01/2023 Tobacco Cessation Counseling and Screening (12+) 10/31/2024 11/01/2023 COVID-19 VACCINE (3 - season) 12/08/202405/2020, 06/20/2020 Influenza Vaccine (#1) 2024 02/05/2023 Breast Cancer Screening 10/31/2025 11/01/2023 Pneumococcal 50+ years Completed 03/18/2024, 2019 Procedures Procedure Name Priority Date/Time Associated Diagnosis [...] Region Laterality Modality Breast Bilateral Mammography 11/01/2023 4:4 0 PM EDT Impressions 11/01/2023 4:45 PM EDT [...] the next mammogram. At our facility, a [place] marker is positioned over a visible skin [...] not conclusive on mammography. Anita Ocampo APRN [facility] [place] [facility] ORDERAB[facility] F inal Result from Last 3 Months or Most Recently Relevant to Health Maintenance Insurance
--- OUTSIDE RECORDS SUMMARY | 2025-01-27 18:22 | XMS_ITS | Clinical Summary ---
Author Organization [facility] , [facility] Address [address] [place] [address] Phone Care Team Providers Care Spiritual Minister Name Role Phone Terrence LENZ Anita Primary Care Provider [phone] Shilpa BUTT, Hakan Akins Unavailable [phone] Reason for Visit and Chief Complaint The Chief Complaint is: R Wrist pain Problems Includes: Problems addressed during this encounter and other active Problems All Visits Onset Date Resolved Date Provider Condition S tatus Joint Pain Wrist Left 09/29/2024 Eagle Porter PA-C Active Last Documented On 5 3:20PM ; [facility], [facility] Joint Pain Wrist Right 08/11/2024 Darin Doherty MD Active Last Documented On 5 3:00PM ; [facility], [facility] Joint Pain in Both Knees 09/06/2023 Lul hope PA-C Active Last Documented On 4 1:25PM ; [facility] Osteoporosis Postmenopausal 07/12/2022 Annemarie myers PA-C Active Last Documented On 3 9:28AM ; [facility] Joint Pain Shoulder Right 04/25/2022 Cheheather Elizalde os Mauricio PA-C Active Last Documented On 3 9:53AM ; [facility] Joint Pain Fingers of Right Hand 02/14/2022 Radha Smith PA-C Active Last Documented On 2 2:02PM ; [facility] Plan of Treatment Patient screened for future fall risk: documentation of any fall with injury in past year. - Last Documented On 08/28/2024 10:06AM ; [facility] Instructions to patient Lose weight Last Documented On 5 9:16AM ; [facility] Assessments Includes: Assessments from this encounter Findings - Overweight - Last Documented On 08/28/2024 10:06AM ; [facility] Instructions Includes: Instructions from this encounter Instructions to patient Lose weight Last Documented On 5 9:16AM ; [facility] Medical Equipment - Implanted Devices Includes: Current Devices No Medical Equipment Recorded Medications Includes: Medications discussed during this encounter and other current Medications Current Medications (continue as prescribed) Famotidine 40 MG Oral Tablet 08/11/2024 Provider: Nicky Metcalf APRN Diagnosis: Last Documented On 5 8:48AM By Maegan Erickson ; [facility] Atorvastatin Calcium 40 MG Oral Tablet 08/02/2024 Pr ovider: Nicky Metcalf APRN Diagnosis: Last Documented On 5 8:48AM By Maegan Erickson ; [facility], [facility] Betamethasone Dipropionate 0 .05% External Ointment 04/25/2024 Provider: Anita Ocampo APRN Diagnosis: Last Documented On 5 8:48AM By Maegan Erickson ; [facility], [facility] Methocarbamol 500 MG Oral Tablet 04/22/2022 Provider : Diagnosis: Last Documented On 3 9:53AM By Tabby Cortez ; [facility], [facility] Ondansetron 4 MG Oral Tablet Disintegrating 04/22/2022 Provider: Diagnosis: Last Documented On 3 9:53AM By Tabby Cortez ; [facility], [facility] Albuterol Sulfate Powder 02/14/2022 Provider: Diagnosis: Last Documented On 2 2:16PM By Leanna Teran ; [facility] Omeprazole 20 MG Oral Capsule Delayed Release 02/15/20 Provider: Diagnosis: Last Documented On 2 2:16PM By Leanna Teran ; [facility] Metoprolol Tartrate 25 MG Oral Tablet 02/11/2022 Pro vider: Diagnosis: Last Documented On 2 2:16PM By Leanna Teran ; [facility] Valsartan 40 MG Oral Tablet 02/08/2022 Provider: Diagnosis: Last Documented On 2 2:16PM By Leanna Teran ; [facility] buPROPion HCl ER (Smoking De t) 150 MG Oral Tablet Extended Release 12 Hour 02/04/2022 Provider: Diagnosis: Last Documented On 2 2:16PM By Leanna Teran ; [facility] amLODIPine Besylate 10 MG Oral Tablet 02/04/2022 Pro vider: Diagnosis: Last Documented On 2 2:16PM By Leanna Teran ; [facility] Primidone 50 MG Oral Tablet 01/26/2022 Provider: Diagnosis: Last Documented On 2 2:16PM By Leanna Teran ; [facility] Sertraline HCl 50 MG Oral Tablet 01/23/2022 Provider : Diagnosis: Last Documented On 2 2:16PM By Leanna Teran ; [facility] Past Medications on file HYDROcodone-Acetaminophen 5- 325 MG Oral Tablet 08/14/2024 - 08/26/2024 Provider: Darin Doherty MD Diagnosis: [id number] Last Documented On 5 8:49AM By Darin Doherty ; [facility] Vitamin C 500 MG Oral Capsule 08/14/2024 - 09/13/2024 Provider: Darin Doherty MD Diagnosis: 1 TABLET once a day Last Documented On 5 8:49AM By Darin Doherty ; [facility], [facility] traMADol HCl 50 MG Oral Tablet 04/25/2022 - 05/02/2022 Provider: Luis mckee MD Diagnosis: 1 by mouth q 6 hours prn pain Last Documented On 3 10:12AM By Luis Guidry ; [facility] Naproxen 500 MG Oral Tablet 02/17/2022 - 03/19/2022 Pr ovider: Pablo Amaro MD Diagnosis: take one tablet twice a day prn following surger y Last Documented On 2 2:08PM By Mayi Vinson ; [facility] Vitamin C 1000 MG Oral Tablet 02/17/2022 - 04/18/2022 Provider: Pablo nielson MD Diagnosis: take one tablet, once a day post surgery Last Documented On 2 2:08PM By Mayi Vinson ; [facility] HYDROcodone-Acetaminophen 7. 5-325 MG Oral Tablet 02/17/2022 - 02/20/2022 Provider: Pablo Amaro MD Diagnosis: 1 tab every 6 hrs prn pain Last Documented On 2 3:25PM By Dr. Amaro ; [facility] Medications Administered Includes: Administered Medications from this encounter No Administered Medications Recorded Vital Signs Includes: Vital Signs from this encounter Vital Name 08/28/2024 09:17A Height (in) 64 Weight (lb) 240 Body Mass Index 41.2 Body Surface Area 2.1 Note: MCG Last Documented: On 08/28/2024 9:17AM ; [facility] Results Includes: Results discussed during this encounter No Results Recorded For Specified Dates History of Present Illness Includes: History of Present Illness from this encounter SOLOMON Melgar is a 74 year old female. - Allergy list reviewed - Problem list reviewed - Medication list reviewed - Review of medications documented 74-year-old female status post left distal radius ORIF. Surgery was on 08/14/2024. She was already met with therapy, has a thermoplastic wrist brace. Denies any wound issues. Pain has been well-controlled postoperatively. Denies any numbness and tingling. Social History Description Last Updated No caffeine use 07/11/2022 Last Documented On 5 9:16AM ; [facility] No recent change in diet 07/11/2022 Last Documented On 5 9:16AM ; [facility] Not a current smoker. 07/11/2022 Last Documented On 5 9:16AM ; [facility] Not exercising regularly 07/11/2022 Last Documented On 5 9:16AM ; [facility] Not using alcohol 07/11/2022 Last Documented On 5 9:16AM ; [facility] Not using drugs 07/11/2022 Last Documented On 5 9:16AM ; [facility] Tobacco non-user 07/11/2022 Last Documented On 5 9:16AM ; [facility], [facility] Retired from work 02/14/2022 Last Documented On 5 9:16AM ; [facility] Smoking Status Unknown Procedures and Surgical History Includes: Procedures from this encounter Procedures Code Diagnosis Performing Provider Service Location Service Date X-RAY EXAM OF WRIST 3-5 VIEWS (LEFT) 41691 Unsp fracture of the lower end of left radius, init Eagle Porter PA-C [facility] 08/28/2024 Last Documented On 5 11:06AM ; [facility], [facility] Surgical History Last Updated History of hysterectomy 07/11/2022 Last Documented On 5 9:16AM ; [facility], [facility] Medical History Includes: Medical History addressed during this encounter Description Last Updated History of arthritis 07/11/2022 Last Documented On 5 9:16AM ; [facility], [facility] History of Heart Attack 07/11/2022 Last Documented On 5 9:16AM ; [facility], [facility] History of History of Emphysema 07/12/19 23 Last Documented On 5 9:16AM ; [facility], [facility] History of Hypertension 07/11/2022 Last Documented On 5 9:16AM ; [facility], [facility] History of Sleep Apnea 07/11/2022 Last Documented On 5 9:16AM ; [facility] Use of CPAP 07/11/2022 Last Documented On 5 9:16AM ; [facility] History of History of Heart Attack / Str ayala 02/14/2022 Last Documented On 5 9:16AM ; [facility], [facility] No recent immunization for flu Last Documented On 5 9:16AM ; [facility], [facility] No recent immunization for pneumococcal pneumonia 02/14/2022 Last Documented On 5 9:16AM ; [facility], [facility] Family History Includes: Family History addressed during this encounter Description Last Updated No significant family history 07/11/2022 Last Documented On 5 9:16AM ; [facility] Family history of cancer 02/14/2022 Last Documented On 5 9:16AM ; [facility] Review of Systems Includes: Review of Systems from this encounter Systemic: No symptoms, not feeling tired, no recent weight loss, and no recent weight gain. Head: No headache and no sinus pain. Eyes: No vision problems, no Cataracts, no Glasses/Contacts, and no Glaucoma. Otolaryngeal: No hearing loss and no tinnitus. Cardiovascular: No chest pain or discomfort, no palpitations, no Hypertension, and no High Cholesterol. Pulmonary: Pulmonary symptoms Copd. No daytime asthma symptoms and no chronic cough. Wheezing. Gastrointestinal: No heartburn and no abdominal pain. No Indigestion, no Peptic Ulcer, no GI Stomach Bleed, no Ulcers, and no Acid Reflux. Endocrine: No hot flashes, no muscle weakness, no Diabetes, no Hypothyroid, and no Hyperthyroid. Hematologic: No easy bleeding, no tendency for easy bruising, and no Anemia. Musculoskeletal: No Arthritis and no lower back pain. No soft tissue swelling and no localized joint pain. Neurological: Neurological symptoms 5 cm bleed occipital lobe. No dizziness, no convulsions, and no numbness. Psychological: No anxiety and no emotional lability. Depression. No insomnia. Not crying for no reason. Skin: No dry skin. No Ulcers, no Scars, and no rash. Allergic and Immunologic: No complaint of seasonal allergic reaction. Mental Status Includes: Mental Status from this encounter Description No anxiety Functional Status Includes: Functional Status from this encounter No Functional Status Recorded Physical Exam Includes: Physical Exam from this encounter Allergies Includes: Active Allergies Substance Type Reaction Onset Date Resolved Date Statu s oxyCODONE HCl Allergy Nausea 08/14/2024 Activ e Last Documented On 5 3:20PM ; [facility] Encounters Encounter Provider Location Date Check-In Time Check-Out Time Diagnosis Post Op Eagle Porter PA-C [facility] 5 8:36AM 10:04AM Overweight Insurance Includes: Active Insurance Policies Plan Name Member ID Group # Subscriber Relationship Effect lizzy Dates 1 - BC[employer] [place]) Medicare [id number] Luz Melgar Self 3 - Unknown Clinical Notes Includes: Clinical Notes from this encounter * Progress note Date Encounter Last Documented by 08/28/2024 Post Op Last documented on 08/28/2024; 10:06 AM, Eagle Porter PA-C; [facility] Active Problems & Conditions - Joint Pain Fingers of Right Hand - Joint Pain in Both Knees - Joint Pain, Localized in the Right Shoulder - Joint Pain, Localized in the Right Wrist - Osteoporosis Postmenopausal Chief Complaint The Chief Complaint is: R Wrist pain. History of Present Illness Luz Melgar is a 74 year old female. - Allergy list reviewed - Problem list reviewed - Medication list reviewed - Review of medications documented 74-year-old female status post left distal radius ORIF. Surgery was on 08/14/2024. She was already met with therapy, has a thermoplastic wrist brace. Denies any wound issues. Pain has been well-controlled postoperatively. Denies any numbness and tingling. Current Medication - Albuterol Sulfate Powder 0 days, 0 refills - amLODIPine Besylate 10 MG Oral Tablet 90 days, 0 refills - Atorvastatin Calcium 40 MG Oral Tablet 90 days, 0 refills - Betamethasone Dipropionate 0.05% External Ointment 90 days, 0 refills - buPROPion HCl ER (Smoking Det) 150 MG Oral Tablet Extended Release 12 Hour 90 days, 0 refills - Famotidine 40 MG Oral Tablet 90 days, 0 refills - Methocarbamol 500 MG Oral Tablet 5 days, 0 refills - Metoprolol Tartrate 25 MG Oral Tablet 90 days, 0 refills - Omeprazole 20 MG Oral Capsule Delayed Release 0 days, 0 refills - Ondansetron 4 MG Oral Tablet Disintegrating 3 days, 0 refills - Primidone 50 MG Oral Tablet 90 days, 0 refills - Sertraline HCl 50 MG Oral Tablet 90 days, 0 refills - Valsartan 40 MG Oral Tablet 90 days, 0 refills - Vitamin C 500 MG Oral Capsule 1 TABLET once a day, 30 days, 0 refills Past Medical/Surgical History Reported: Use of CPAP and History of Heart Attack. Immunization History: No recent immunization for flu and not for pneumococcal pneumonia. Diagnoses: Sleep Apnea History of Emphysema Hypertension History of Heart Attack / Stroke. Arthritis Surgical: - Hysterectomy Social History Not a current smoker. Current diet: No recent change in diet. Behavioral: Tobacco non-user. Caffeine: No caffeine use. Alcohol: Not using alcohol. Drug Use: Not using drugs. Habits: Not exercising regularly. Work: Retired from work. Allergies - oxyCODONE HCl Reaction: Nausea Family History Cancer No significant family history Review Of Systems Systemic: No symptoms, not feeling tired, no recent weight loss, and no recent weight gain. Head: No headache and no sinus pain. Eyes: No vision problems, no Cataracts, no Glasses/Contacts, and no Glaucoma. Otolaryngeal: No hearing loss and no tinnitus. Cardiovascular: No chest pain or discomfort, no palpitations, no Hypertension, and no High Cholesterol. Pulmonary: Pulmonary symptoms Copd. No daytime asthma symptoms and no chronic cough. Wheezing. Gastrointestinal: No heartburn and no abdominal pain. No Indigestion, no Peptic Ulcer, no GI Stomach Bleed, no Ulcers, and no Acid Reflux. Endocrine: No hot flashes, no muscle weakness, no Diabetes, no Hypothyroid, and no Hyperthyroid. Hematologic: No easy bleeding, no tendency for easy bruising, and no Anemia. Musculoskeletal: No Arthritis and no lower back pain. No soft tissue swelling and no localized joint pain. Neurological: Neurological symptoms 5 cm bleed occipital lobe. No dizziness, no convulsions, and no numbness. Psychological: No anxiety and no emotional lability. Depression. No insomnia. Not crying for no reason. Skin: No dry skin. No Ulcers, no Scars, and no rash. Allergic and Immunologic: No complaint of seasonal allergic reaction. Physical Findings - Vitals taken 08/28/2024 09:17 am MCG Height 64 in Weight 240 lbs Body Mass Index 41.2 kg/m2 Body Surface Area 2.1 m2 PHYSICAL EXAM: CONSTITUTIONAL: Well developed, well groomed, well nourished patient in no acute distress who appears stated age, height and weight. PSYCHIATRIC: The patient is alert and oriented to person, place, date and situation. Mood and affect are normal for current situation. NEUROLOGICAL: Sensation normal bilateral upper and lower extremities. LYMPHATIC: No pitting edema noted in the lower extremities. SKIN: No lesions noted on upper or lower extremities. Skin is dry, warm and with normal turgor. VASCULAR: No swelling in upper or lower extremities other than described below in extremity exam. Pulses normal in both upper (radial) extremities. GAIT AND STATION: Normal gait without assistive devices. Station normal. LEFT WRIST/HAND: Able to make a full composite fist Able to fully flex and extend all fingers Hand is warm and well perfused Sensation intact to light touch distally in all nerve distributions Well healed surgical incision, well approximated, no evidence of infection Appropriately tender Flexion: 20 degrees Extension: 20 degrees Pronation: 90 degrees Supination: 60 degrees User Defined 5 Three-view x-rays of the left wrist she was stable placement of the hardware. Alignment is anatomic. 74-year-old female status post left distal radius ORIF on 08/14/2024. X-rays show acceptable alignment. Her wound is healed nicely. She was already met with therapy and has a brace. She understands to wear her brace at all times except for hygiene. No lifting greater than 1 lb or bearing weight through the extremity. Okay for showers and washing hands, she was should not submerge the incision until it was a fully mature watertight scar. I will have her follow up in 1 month for clinical recheck and repeat x-rays of the left wrist. Assessment - Overweight Counseling/Education Tobacco non-user. use of tobacco assessment performed. - Lose weight Plan Patient screened for future fall risk: documentation of any fall with injury in past year. Notes This dictation was done with voice recognition software and may contain errors and omissions. Care Team - Anita Ocampo, DIRECTOR OUTPATIENT SERVICES
--- OUTSIDE RECORDS SUMMARY | 2025-01-27 18:23 | XMS_ITS | Clinical Summary ---
Author Organization [facility] , [facility] Address [address] [place] [address] Phone Care Team Providers Care Medical Office Supervisor Name Role Phone Ocampo [employer] Anita Primary Care Provider [phone] Shilpa BUTT, Hakan Akins Unavailable [phone] Reason for Visit and Chief Complaint [facility] Outpatient Surgery Suites Problems Includes: Problems addressed during this encounter and other active Problems All Visits Onset Date Resolved Date Provider Condition S tatus Joint Pain Wrist Left 09/29/2024 Eagle Porter PA-C Active Last Documented On 5 3:20PM ; [facility] Joint Pain Wrist Right 08/11/2024 Darin Doherty MD Active Last Documented On 5 3:00PM ; [facility], [facility] Joint Pain in Both Knees 09/06/2023 Lul hope PA-C Active Last Documented On 4 1:25PM ; [facility], [facility] Osteoporosis Postmenopausal 07/12/2022 Annemarie myers PA-C Active Last Documented On 3 9:28AM ; [facility], [facility] Joint Pain Shoulder Right 04/25/2022 Cheslee Am os Mauricio PA-C Active Last Documented On 3 9:53AM ; [facility], [facility] Joint Pain Fingers of Right Hand 02/14/2022 Radha Smith PA-C Active Last Documented On 2 2:02PM ; [facility], [facility] Plan of Treatment No Plan of Treatment Recorded Assessments Includes: Assessments from this encounter No Assessments Recorded Medical Equipment - Implanted Devices Includes: Current Devices No Medical Equipment Recorded Medications Includes: Medications discussed during this encounter and other current Medications Discontinued / Stopped on this date Darin Doherty MD on 08/13/2024 oxyCODONE HCl 5 MG Oral Tablet Provider: Darin Doherty MD Diagnosis: Last Documented On 5 8:16AM By Maegan Erickson ; [facility], [facility] Current Medications (continue as prescribed) Famotidine 40 MG Oral Tablet 08/11/2024 Provider: Nicky Metcalf APRN Diagnosis: Last Documented On 5 8:48AM By Maegan Erickson ; [facility], [facility] Atorvastatin Calcium 40 MG Oral Tablet 08/02/2024 Pr ovider: Nicky Metcalf APRN Diagnosis: Last Documented On 5 8:48AM By Maegan Erickson ; [facility], [facility] Betamethasone Dipropionate 0 .05% External Ointment 04/25/2024 Provider: Anita Ocampo APRN Diagnosis: Last Documented On 5 8:48AM By Maegan Erickson ; [facility], [facility] Methocarbamol 500 MG Oral Tablet 04/22/2022 Provider : Diagnosis: Last Documented On 3 9:53AM By Tabby Cortez ; [facility], [facility] Ondansetron 4 MG Oral Tablet Disintegrating 04/22/2022 Provider: Diagnosis: Last Documented On 3 9:53AM By Tabby Cortez ; [facility], [facility] Albuterol Sulfate Powder 02/14/2022 Provider: Diagnosis: Last Documented On 2 2:16PM By Leanna Teran ; [facility], [facility] Omeprazole 20 MG Oral Capsule Delayed Release 02/15/20 Provider: Diagnosis: Last Documented On 2 2:16PM By Leanna Teran ; [facility], [facility] Metoprolol Tartrate 25 MG Oral Tablet 02/11/2022 Pro vider: Diagnosis: Last Documented On 2 2:16PM By Leanna Teran ; [facility], [facility] Valsartan 40 MG Oral Tablet 02/08/2022 Provider: Diagnosis: Last Documented On 2 2:16PM By Leanna Teran ; [facility] buPROPion HCl ER (Smoking De t) 150 MG Oral Tablet Extended Release 12 Hour 02/04/2022 Provider: Diagnosis: Last Documented On 2 2:16PM By Leanna Teran ; [facility] amLODIPine Besylate 10 MG Oral Tablet 02/04/2022 Pro vider: Diagnosis: Last Documented On 2 2:16PM By Leanna Teran ; [facility] Primidone 50 MG Oral Tablet 01/26/2022 Provider: Diagnosis: Last Documented On 2 2:16PM By Leanna Teran ; [facility] Sertraline HCl 50 MG Oral Tablet 01/23/2022 Provider : Diagnosis: Last Documented On 2 2:16PM By Leanna Teran ; [facility] Medications Administered Includes: Administered Medications from this encounter No Administered Medications Recorded Results Includes: Results discussed during this encounter No Results Recorded For Specified Dates History of Present Illness Includes: History of Present Illness from this encounter No History of Present Illness Recorded Social History No Social History Recorded - Smoking Status Unknown Procedures and Surgical History Includes: Procedures from this encounter Procedures Code Diagnosis Performing Provider Service Location Service Date Open treat distal rad intra-articular 3 or more fragments (LEFT) [address] Ot intartic fracture of lower end of left radius, init Darin Doherty MD [facility] Outpt 08/14/2024 Last Documented On 5 1:14PM ; [facility] Medical History Includes: Medical History addressed during this encounter No Medical History Recorded Family History Includes: Family History addressed during this encounter No Family History Recorded Review of Systems Includes: Review of Systems from this encounter No Review of Systems Recorded Mental Status Includes: Mental Status from this encounter No Mental Status Recorded Functional Status Includes: Functional Status from this encounter No Functional Status Recorded Physical Exam Includes: Physical Exam from this encounter No Physical Exam Recorded Allergies Includes: Active Allergies Substance Type Reaction Onset Date Resolved Date Statu s oxyCODONE HCl Allergy Nausea 08/14/2024 Activ e Last Documented On 5 3:20PM ; [facility] Encounters Encounter Provider Location Date Check-In Time Check-Out Time Diagnosis [facility] Outpatient Surgery Suites Darin Doherty MD Surgery 5 10:17AM 11:59PM Insurance Includes: Active Insurance Policies Plan Name Member ID Group # Subscriber Relationship Effect lizzy Dates 1 - [employer] ([place]) Medicare [id number] Luz Melgar Self 3 - Unknown Clinical Notes Includes: Clinical Notes from this encounter No Clinical Notes Recorded
--- OUTSIDE RECORDS SUMMARY | 2025-01-27 18:23 | XMS_ITS ---
Author Organization [facility] Address [address] [place] [address] Phone Care Team Providers Care Occupational Rehabilitation Aide Name Role Phone Terrence LENZ Anita Primary Care Provider [phone] Shilpa BUTT, Hakan Akins Unavailable [phone] Problems Includes: Active, inactive, and resolved Problems All Visits Onset Date Resolved Date Provider Condition S tatus Joint Pain Wrist Left 09/29/2024 Eagle Porter PA-C Active Last Documented On 5 3:20PM ; [facility] Joint Pain Wrist Right 08/11/2024 Darin Doherty MD Active Last Documented On 5 3:00PM ; [facility] Joint Pain in Both Knees 09/06/2023 Lul hope PA-C Active Last Documented On 4 1:25PM ; [facility] Osteoporosis Postmenopausal 07/12/2022 Annemarie myers PA-C Active Last Documented On 3 9:28AM ; [facility] Joint Pain Shoulder Right 04/25/2022 Dana Martínez PA-C Active Last Documented On 3 9:53AM ; [facility] Joint Pain Fingers of Right Hand 02/14/2022 Radha Smith PA-C Active Last Documented On 2 2:02PM ; [facility] Plan of Treatment Findings Encounter Date Patient screened for future fall risk: documentation of any fall with injury in past year Post Op with Eagle Porter PA-C 09/29/2024 Last Documented On 5 3:49PM ; [facility] Patient screened for future fall risk: documentation of any fall with injury in past year Post Op with Eagle Porter PA-C 08/28/2024 Last Documented On 5 10:06AM ; [facility] Patient screened for future fall risk: documentation of any fall with injury in past year Next Available Non-Specified Physician with Darin Doherty MD 08/11/2024 Last Documented On 5 6:33PM ; [facility] Pending Tests Order Diagnosis Results Due Ordering P rovider Radiology Dexascan 07/12/22 Annemarie Blanco PA-C Last Documented On 3 9:32AM ; [facility] Denehy Labs - Osteoporosis Labs Osteoporosis Labs 07/12/22 Annemarie Blanco PA-C Last Documented On 3 9:32AM ; [facility] Radiology - MRI MRI Lumbar Spine 08/01/22 Nhung Huff MD Last Documented On 3 12:01PM ; [facility] Referrals To Diagnosis Consult with Orthopedic Annemarie Blanco PA-C Note: IHR per JF for osteope rosis3.21.23 @ 230 pm/sv Last Documented On 3 2:34PM ; [facility] Consult with Orthopedic Anika Phelps Note: IHR per JF for lower b ack pain4.11.23 @ 1030am//sv Last Documented On 3 2:34PM ; [facility] Instructions to patient Lose weight Last Documented On 5 3:20PM ; [facility] Lose weight Last Documented On 5 9:16AM ; [facility] Lose weight Last Documented On 5 3:01PM ; [facility] Lose weight Last Documented On 4 1:39PM ; [facility] Lose weight Last Documented On 3 10:23AM ; [facility] Lose weight Last Documented On 3 9:27AM ; [facility] Lose weight Last Documented On 3 2:02PM ; [facility] Lose weight Last Documented On 3 2:58PM ; [facility] Lose weight Last Documented On 3 2:02PM ; [facility] Lose weight Last Documented On 3 9:54AM ; [facility] Lose weight Last Documented On 2 3:07PM ; [facility] Lose weight Last Documented On 2 3:21PM ; [facility] Assessments Includes: Assessments for all patient encounters Findings Encounter Date Overweight Post Op with Eagle Porter PA-C 09/29/2024 Last Documented On 5 3:49PM ; [facility] Overweight Post Op with Eagle Porter PA-C 08/28/2024 Last Documented On 5 10:06AM ; [facility] Overweight Next Available Non-Specified Blacky sicgayla with Darin Doherty MD 08/11/2024 Last Documented On 5 6:33PM ; [facility] Overweight Follow Up with Pablo burch MD 06/08/2022 Last Documented On 4 10:52AM ; [facility] Overweight Follow Up with Dana phelps PA-C 05/04/2022 Last Documented On 4 7:25AM ; [facility] Instructions Includes: Instructions for all patient encounters Instructions to patient Lose weight Last Documented On 5 3:20PM ; [facility] Lose weight Last Documented On 5 9:16AM ; [facility] Lose weight Last Documented On 5 3:01PM ; [facility] Lose weight Last Documented On 4 1:39PM ; [facility] Lose weight Last Documented On 3 10:23AM ; [facility] Lose weight Last Documented On 3 9:27AM ; [facility] Lose weight Last Documented On 3 2:02PM ; [facility] Lose weight Last Documented On 3 2:58PM ; [facility] Lose weight Last Documented On 3 2:02PM ; [facility] Lose weight Last Documented On 3 9:54AM ; [facility] Lose weight Last Documented On 2 3:07PM ; [facility] Lose weight Last Documented On 2 3:21PM ; [facility] Medical Equipment - Implanted Devices Includes: Current and historical Devices No Medical Equipment Recorded Medications Includes: Current and historical Medications Current Medications (continue as prescribed) Famotidine 40 MG Oral Tablet 08/11/2024 Provider: Nicky Metcalf APRN Diagnosis: Last Documented On 5 8:48AM By Maegan Erickson ; [facility] Atorvastatin Calcium 40 MG Oral Tablet 08/02/2024 Pr ovider: Nicky Metcalf APRN Diagnosis: Last Documented On 5 8:48AM By Maegan Erickson ; [facility] Betamethasone Dipropionate 0 .05% External Ointment 04/25/2024 Provider: Anita Ocampo APRN Diagnosis: Last Documented On 5 8:48AM By Maegan Erickson ; [facility] Methocarbamol 500 MG Oral Tablet 04/22/2022 Provider : Diagnosis: Last Documented On 3 9:53AM By Tabby Cortez ; [facility] Ondansetron 4 MG Oral Tablet Disintegrating 04/22/2022 Provider: Diagnosis: Last Documented On 3 9:53AM By Tabby Cortez ; [facility] Albuterol Sulfate Powder 02/14/2022 Provider: Diagnosis: Last Documented On 2 2:16PM By Leanna Teran ; [facility] Omeprazole 20 MG Oral Capsule Delayed Release 02/15/20 Provider: Diagnosis: Last Documented On 2 2:16PM By Leanna Teran ; [facility] Metoprolol Tartrate 25 MG Oral Tablet 02/11/2022 Pro vider: Diagnosis: Last Documented On 2 2:16PM By Leanna Teran ; [facility] Valsartan 40 MG Oral Tablet 02/08/2022 Provider: Diagnosis: Last Documented On 2 2:16PM By Leanna Teran ; [facility] buPROPion HCl ER (Smoking De t) 150 MG Oral Tablet Extended Release 12 Hour 02/04/2022 Provider: Diagnosis: Last Documented On 2 2:16PM By Leanna Teran ; [facility] amLODIPine Besylate 10 MG Oral Tablet 02/04/2022 Pro vider: Diagnosis: Last Documented On 2 2:16PM By Leanna Teran ; [facility] Primidone 50 MG Oral Tablet 01/26/2022 Provider: Diagnosis: Last Documented On 2 2:16PM By Leanna Teran ; [facility] Sertraline HCl 50 MG Oral Tablet 01/23/2022 Provider : Diagnosis: Last Documented On 2 2:16PM By Leanna Teran ; [facility] Past Medications on file HYDROcodone-Acetaminophen 5- 325 MG Oral Tablet 08/14/2024 - 08/14/2024 Provider: Darin Doherty MD Diagnosis: [id number] Last Documented On 5 8:41AM By Darin Doherty ; [facility] HYDROcodone-Acetaminophen 5- 325 MG Oral Tablet 08/14/2024 - 08/26/2024 Provider: Darin Doherty MD Diagnosis: [id number] Last Documented On 5 8:49AM By Darin Doherty ; [facility] Vitamin C 500 MG Oral Capsule 08/14/2024 - 09/13/2024 Provider: Darin Doherty MD Diagnosis: 1 TABLET once a day Last Documented On 5 8:49AM By Darin Doherty ; [facility] oxyCODONE HCl 5 MG Oral Tablet 08/13/2024 - 08/14/2024 Provider: Darin Doherty MD Diagnosis: 1 poq 4-6h Last Documented On 5 8:16AM By Maegan Erickson ; [facility] Vitamin C 500 MG Oral Capsule 08/13/2024 - 08/14/2024 Provider: Darin Doherty MD Diagnosis: 1 TABLET once a day Last Documented On 5 8:42AM By Darin Doherty ; [facility] traMADol HCl 50 MG Oral Tablet 04/25/2022 - 05/02/2022 Provider: Luis mckee MD Diagnosis: 1 by mouth q 6 hours prn pain Last Documented On 3 10:12AM By Luis Guidry ; [facility] oxyCODONE HCl 5 MG Oral Tablet 04/22/2022 - 08/12/2024 Provider: Diagnosis: Last Documented On 5 9:56AM By Soraida Paul ; [facility] Naproxen 500 MG Oral Tablet 02/17/2022 - 03/19/2022 Pr ovider: Pablo Amaro MD Diagnosis: take one tablet twice a day prn following surger y Last Documented On 2 2:08PM By Mayi Vinson ; [facility] Vitamin C 1000 MG Oral Tablet 02/17/2022 - 04/18/2022 Provider: Pablo nielson MD Diagnosis: take one tablet, once a day post surgery Last Documented On 2 2:08PM By Mayi Vinson ; [facility] HYDROcodone-Acetaminophen 7. 5-325 MG Oral Tablet 02/17/2022 - 02/20/2022 Provider: Pablo Amaro MD Diagnosis: 1 tab every 6 hrs prn pain Last Documented On 2 3:25PM By Dr. Amaro ; [facility] Trelegy Ellipta 200-62.5-25 MCG/ACT Inhalation Aerosol Powder Breath Activated 02/14/2022 - 08/12/2024 Provider: Diagnosis: Last Documented On 5 9:57AM By Soraida Paul ; [facility] Medications Administered Includes: Administered Medications in patient's chart No Administered Medications Recorded Vital Signs Includes: Vital Signs from 01/28/2024 through 01/27/2025 Vital Name 09/29/2024 03:21P 08/28/2024 09:17A 08/12/2024 09:53A 08/11/2024 03:00P Height (in) 64 64 64 64 Weight (lb) 240 240 240.7 Body Mass Index 41.2 41.2 41.3 Body Surface Area 2.1 2.1 2.1 Blood Pressure Sitting R 134/72 Pulse Rate-Sitting (bpm) 62 Oxygen Saturation (%) 98 Note: jm MCG EC MCG Last Documented: On 09/29/2024 3:21PM ; [facility] On 08/28/2024 9:17AM ; [facility] On 08/12/2024 9:59AM ; [facility] On 08/11/2024 3:01PM ; [facility] Results Includes: Results from 01/28/2024 through 01/27/2025 No Results Recorded For Specified Dates History of Present Illness History of Present Illness not supported for this document type No History of Present Illness Recorded Social History Description Last Updated No caffeine use 07/11/2022 Last Documented On 4 12:11PM ; [facility] No recent change in diet 07/11/2022 Last Documented On 4 12:11PM ; [facility] Not a current smoker. 07/11/2022 Last Documented On 4 12:11PM ; [facility] Not exercising regularly 07/11/2022 Last Documented On 4 12:11PM ; [facility] Not using alcohol 07/11/2022 Last Documented On 4 12:11PM ; [facility] Not using drugs 07/11/2022 Last Documented On 4 12:11PM ; [facility] Tobacco non-user 07/11/2022 Last Documented On 4 12:11PM ; [facility] Retired from work 02/14/2022 Last Documented On 2 11:57AM ; [facility] Smoking Status Unknown Procedures and Surgical History Includes: Procedures from 01/28/2024 through 01/27/2025 Procedures Code Diagnosis Performing Provider Service Location Service Date X-RAY EXAM OF WRIST 3-5 VIEWS (LEFT) 49009 Oth intartic fx low end l rad, subs for clos fx w routn heal Eagle Porter PA-C [facility] 09/29/2024 Last Documented On 5 10:19AM ; [facility] MANUAL THERAPY (Occupational therapy) 69159 Oth intartic fx low end l rad, subs for clos fx w routn heal Candy Brown OT [facility] 09/11/2024 Last Documented On 5 1:06PM ; [facility] THERAPEUTIC EXERCISES (Occupational therapy) 69883 Oth intartic fx low end l rad, subs for clos fx w routn heal Candy Brown OT [facility] 09/11/2024 Last Documented On 5 1:06PM ; [facility] THERAPEUTIC ACTIVITIES (Occupational therapy) 21444 Oth intartic fx low end l rad, subs for clos fx w routn heal Candy Brown OT [facility] 09/11/2024 Last Documented On 5 1:06PM ; [facility] THERAPEUTIC EXERCISES (Occupational therapy) 22905 Oth intartic fx low end l rad, subs for clos fx w routn heal Candy Brown OT [facility] 09/02/2024 Last Documented On 5 1:06PM ; [facility] MANUAL THERAPY (Occupational therapy) 32424 Oth intartic fx low end l rad, subs for clos fx w routn heal Candy Brown OT [facility] 09/02/2024 Last Documented On 5 1:06PM ; [facility] THERAPEUTIC EXERCISES (Occupational therapy) 50379 Oth intartic fracture of lower end of left radius, init Candy Brown OT [facility] 08/28/2024 Last Documented On 5 3:51PM ; [facility] X-RAY EXAM OF WRIST 3-5 VIEWS (LEFT) 69233 Unsp fracture of the lower end of left radius, innakul Porter PA-C [facility] 08/28/2024 Last Documented On 5 11:06AM ; [facility] OT Eval - Mod Complexity (Occupational therapy) 85641 Oth intartic fracture of lower end of left radius, init Candy Brown OT [facility] 08/28/2024 Last Documented On 5 3:51PM ; [facility] Open treat distal rad intra-articular 3 or more fragments (LEFT) 83360 Oth intartic fracture of lower end of left radius, init Darin Doherty MD [facility] 08/14/2024 Last Documented On 5 1:14PM ; [facility] Wrist hand orthosis, without joints, may include soft interf (LEFT) L3906 Unsp fracture of the lower end of left radius, init Shanti Mcfadden OT [facility] 08/11/2024 Last Documented On 5 10:55AM ; [facility] X-RAY EXAM OF WRIST 3-5 VIEWS (LEFT) 16719 Unsp fracture of the lower end of left radius, init Darin Doherty MD [facility] 08/11/2024 Last Documented On 5 11:51AM ; [facility] THERAPEUTIC ACTIVITIES (GP) 58550 Dizziness and giddiness Soraida Mao PT [facility] [place] 04/25/2024 Last Documented On 5 10:38AM ; [facility] MANUAL THERAPY (GP) 14531 Dizziness and giddiness Soraida Mao PT [facility] [place] 04/25/2024 Last Documented On 5 10:38AM ; [facility] NEUROMUSCULAR REEDUCATION (GP) 36684 Dizziness and giddiness Soraida Mao PT [facility] [place] 04/25/2024 Last Documented On 5 10:38AM ; [facility] THERAPEUTIC ACTIVITIES (GP) 56868 Dizziness and giddiness Soraida Mao PT [facility] [place] 04/21/2024 Last Documented On 5 9:15AM ; [facility] MANUAL THERAPY (GP) 90879 Dizziness and giddiness Soraida Mao PT [facility] [place] 04/21/2024 Last Documented On 5 9:15AM ; [facility] PT Eval - High Complexity (GP) 51189 Dizziness and giddiness Soraida Mao PT [facility] [place] 04/21/2024 Last Documented On 5 9:15AM ; [facility] Surgical History Last Updated History of hysterectomy 07/11/2022 Last Documented On 4 12:11PM ; [facility] Medical History Includes: Medical History in patient's chart Description Last Updated History of arthritis 07/11/2022 Last Documented On 4 12:11PM ; [facility] History of Heart Attack 07/11/2022 Last Documented On 4 12:11PM ; [facility] History of History of Emphysema 07/12/19 Last Documented On 4 12:11PM ; [facility] History of Hypertension 07/11/2022 Last Documented On 4 12:11PM ; [facility] History of Sleep Apnea 07/11/2022 Last Documented On 4 12:11PM ; [facility] Use of CPAP 07/11/2022 Last Documented On 4 12:11PM ; [facility] History of History of Heart Attack / Str ayala 02/14/2022 Last Documented On 2 11:57AM ; [facility] No recent immunization for flu 2 Last Documented On 2 11:57AM ; [facility] No recent immunization for pneumococcal pneumonia 02/14/2022 Last Documented On 2 11:57AM ; [facility] Family History Includes: Family History in patient's chart Description Last Updated No significant family history 07/11/2022 Last Documented On 4 12:11PM ; [facility] Family history of cancer 02/14/2022 Last Documented On 2 11:57AM ; [facility] Review of Systems Review of Systems not supported for this document type No Review of Systems Recorded Mental Status Description No anxiety Functional Status No Functional Status Recorded Physical Exam Physical Exam not supported for this document type No Physical Exam Recorded Immunizations Includes: Immunizations in patient's chart Vaccine Dose # Date Site Reaction(s) Status Source Influenza 1 03/07/2022 Complete (Refused - Patient objection) [facility] Last Documented On 2 3:16PM ; [facility] PCV (Pneumovax 23) 1 03/07/2022 Complete (Refused - Patient objection) [facility] Last Documented On 2 3:16PM ; [facility] Td 1 03/07/2022 Complete (Refused - Patient objection) [facility] Last Documented On 2 3:16PM ; [facility] Allergies Includes: Active, inactive, and resolved Allergies Substance Type Reaction Onset Date Resolved Date Statu s oxyCODONE HCl Allergy Nausea 08/14/2024 Activ e Last Documented On 5 3:20PM ; [facility] Encounters Includes: Encounters from 01/28/2024 through 01/27/2025 Encounter Provider Location Date Check-In Time Check-Out Time Diagnosis Post Op Eagle Porter PA-C [facility] 025 3:16PM 3:47PM Overweight Post Op Eagle Porter PA-C [facility] 025 8:36AM 10:04AM Overweight Follow Up [facility] 025 08/14/2024 8:30AM 08/12/2024 11:59PM [facility] Darin Doherty MD Surgery 025 10:17AM 08/12/2024 11:59PM [facility] Darin Doherty MD 025 08/11/2024 8:31AM 08/11/2024 11:59PM Pre Admission Testing Shira MOODY [facility] 025 9:50AM 10:00AM Next Available Non-Specified Physician Darin Doherty MD [facility] 025 3:01PM 4:10PM Overweight Insurance Includes: Active Insurance Policies Plan Name Member ID Group # Subscriber Relationship Effect lizzy Dates 1 - [employer] [place] Medicare [id number] Luz Melgar Self 3 - Unknown Clinical Notes Includes: Signed Clinical Notes starting from 03/23/2022 * Progress note Date Encounter Last Documented by 09/29/2024 Post Op Last documented on 09/29/2024; 3:49 PM, Eagle Porter PA-C; [facility] Active Problems & Conditions - Joint Pain Fingers of Right Hand - Joint Pain in Both Knees - Joint Pain in the Left Wrist - Joint Pain, Localized in the Right Shoulder - Joint Pain, Localized in the Right Wrist - Osteoporosis Postmenopausal Chief Complaint The Chief Complaint is: L Wrist pain. History of Present Illness Luz Melgar is a 74 year old female. - Allergy list reviewed - Problem list reviewed - Medication list reviewed - Review of medications documented 74-year-old female status post left distal radius ORIF. Surgery was on 08/14/2024. The patient is having no pain in the wrist. She has weaned herself out of the splint over the last week. She has been able to push herself up out of a chair without any pain. She is very happy with the surgical result thus far. Current Medication - Albuterol Sulfate Powder 0 [...] MG Oral Tablet 90 days, 0 refills Past Medical/Surgical History Reported: [...] allergic reaction. Physical Findings - Vitals taken 09/29/2024 03:21 pm jm Height 64 in Weight 240 lbs Body [...] light touch distally in all nerve distributions Nontender distal radius Well healed surgical scar Flexion: 90 degrees Extension: 70 degrees Pronation: 90 degrees Supination: 90 degrees Strength: 5/5 wrist flexion, 5/5 extension, 5/5 supination, 5/5 pronation. User Defined 5 Three-view x-rays Of the left wrist shows stable placement of the hardware. Alignment is anatomic . There is evidence of increased mineralization of the fracture line. 74-year-old female status post left distal radius ORIF. X-rays show excellent alignment of her fracture. No evidence of hardware issues. He was evidence of healing on the x-ray. The patient has symmetric range motion on exam and she is nontender over the fracture. Wound is healed nicely. Okay to begin weaning out of the splint beginning light activity. She should avoid painful activity such as heavy lifting and bearing weight at this time. I will have her follow up in 6 weeks for clinical recheck and repeat x-rays of the left wrist. Assessment - Overweight Counseling/Education Tobacco non-user. use of tobacco assessment performed. - Lose weight Plan Patient screened for future fall risk: documentation of any fall with injury in past year. Fall Risk Assessment: This patient has been identified as a fall risk. Balance/gait along with postural blood pressure, vision and home fall hazards have been assessed. Medications have been reviewed, and recommendations made with regard to contributing factors for future falls. Plan of care: Consideration of vitamin D supplementation along with balance and strength training with consideration for formal physical therapy has been discussed with the patient. Notes This dictation was done with voice recognition software and may contain errors and omissions. Care Team - Anita Ocampo APRN * Progress note Date Encounter Last Documented by 08/28/2024 Post Op Last documented on 08/28/2024; 10:06 AM, Eagle Porter PA-C; [facility], [facility] Active Problems & Conditions - Joint [...] errors and omissions. Care Team - Anita Ocampo APRN * Progress note Date Encounter Last Documented by 08/12/2024 Pre Admission Testing Last docum ented on 08/14/2024; 7:56 AM, Shira MOODY; [facility], [facility] Active Problems & Conditions - Joint [...] Problem list reviewed - Medication list reviewed This patient is a pleasant 74 yo WF who presents with left wrist pain after a fall 2 days ago. She describes it as a sharp pain. It is now to the point that it is affecting her ADLs. She has tried Tylenol without relief of her pain. She was seen at Dr Doherty's office and evaluated and she was offered a Left Distal Radius ORIF and Possible Bone Graft and agreed to the procedure. Pt denies a h/o DVT/PE. No trouble with anesthesia in the past. Pt has a h/o COPD and FLY and wears CPAP. Current Medication - Albuterol Sulfate Powder 0 [...] MG Oral Tablet 90 days, 0 refills Past Medical/Surgical History Reported: [...] regularly. Work: Retired from work. Allergies - No Known Allergies Family History Cancer No significant family history Review Of Systems Constitutional: Neg for fevers or chills. Eyes: Neg for blurry vision or change in vision. ENT: Neg for sore throat, ear pain, or dizziness. Cardiac: Neg for chest pain or dyspnea on exertion. Respiratory: Neg for shortness of breath. Gastrointestinal: Neg for nausea, vomiting, diarrhea, or constipation. Musculoskeletal: Pos for left wrist pain. Neurologic: Neg for headaches or seizures. Psychiatric: Neg for anxiety and depression. Integumentary: Neg for rash. Physical Findings - Vitals taken 08/12/2024 09:53 am EC BP-Sitting R 134/72 mmHg Pulse Rate-Sitting 62 bpm Height 64 in Weight 240 lbs 11.2 oz Body Mass Index 41.3 kg/m2 Body Surface Area 2.1 m2 Oxygen Saturation 98 % Constitutional: This is a pleasant 74 yo WF in no acute distress. HEENT: Normocephalic, atraumatic. PEERLA. Extraocular muscles intact. Conjunctiva pink without exudate. Oropharynx pink and moist. Neck supple. No JVD. Cardiac: SI, S2. RRR. No M/R/G. Respiratory: Lungs CTA bilaterally. No wheezes, rales, or rhonchi. Abdomen: Soft, nontender, nondistended. Active bowel sounds. No visible masses. Musculoskeletal: Bilateral LE without clubbing, cyanosis or edema. Integumentary: Skin is pink, warm and dry. No rashes. Neurologic: CN II-XII grossly intact. Psychiatric: Judgment and affect appropriate. Tests EKG- NSR, 60 WBC- 4.8 Hbg- 10.7 Hct- 33.0 Plts- 169 Glucose- 85 Na- 144 K- 4.3 BUN- 15 Cr- 1.3 GFR- 41 Albumin- 3.8 User Defined 5 1. Preoperative Exam- Pt underwent preoperative laboratory workup and diagnostic studies. 2.COPD- Nebs/Inhalers prn. 3. FLY- Continue CPAP. 4. GERD- Continue Famotidine and Omeprazole. 5. HL- Continue Atorvastatin. 6. HTN- Continue Metoprolol, Valsartan and Amlodipine. 7. H/o CVA 2021- Very mild residual vision loss. 8. Left Wrist Pain- Proceed with surgery as scheduled with Dr Doherty on 08/14/24. ASC Questions Does the patient have any additional hardware in their body? Right Wrist HW Is the patient a Diabetic? No Is the patient on a Semaglutide? No Has the patient ever been treated for MRSA? No Has the patient ever smoked? Quit in 2021 Does the patient drink daily ETOH? No Do you have a h/o GIB following NSAIDs use? No Have you ever had to hospitalized after a surgery that was supposed to be outpatient? No In the last 6 weeks, have you had any respiratory illnesses including, but not limited to Flu, COVID or Pneumonia? No Does the patient have a clear discharge plan that includes having someone drop them off for surgery, pick them up, and stay with them 72 hrs. This person will have to be able to cook meals, assist in getting the patient to and from the restroom and give medications. Yes, daughter * Progress note Date Encounter Last Documented by 08/11/2024 Next Available Non-S pecified Physician Last documented on 08/11/2024; 6:33 PM, Darin Doherty MD; [facility], [facility] Active Problems & Conditions - Joint [...] list reviewed - Medication list reviewed - - Review of medications documented 74-year-old female with left wrist pain after a mechanical fall yesterday. [facility] to [facility] which demonstrated a displaced intra-articular distal radius fracture. Patient has a history of a previous right-sided distal radius fracture that was treated operatively by 1 of my partners with a good outcome. Current Medication - Albuterol Sulfate Powder 0 days, 0 refills - amLODIPine Besylate 10 MG Oral Tablet 90 days, 0 refills - buPROPion HCl ER (Smoking Det) 150 MG Oral Tablet Extended Release 12 Hour 90 days, 0 refills - Methocarbamol 500 MG Oral Tablet 5 days, 0 refills - Metoprolol Tartrate 25 MG Oral Tablet 90 days, 0 refills - Omeprazole 20 MG Oral Capsule Delayed Release 0 days, 0 refills - Ondansetron 4 MG Oral Tablet Disintegrating 3 days, 0 refills - oxyCODONE HCl 5 MG Oral Tablet 1 days, 0 refills - Primidone 50 MG Oral Tablet 90 days, 0 refills - Sertraline HCl 50 MG Oral Tablet 90 days, 0 refills - Trelegy Ellipta 200-62.5-25 MCG/ACT Inhalation Aerosol Powder Breath Activated 0 days, 0 refills - Valsartan 40 MG Oral Tablet 90 days, 0 refills Past Medical/Surgical History Reported: Use of CPAP and History of Heart Attack. Immunization History: No recent immunization for flu and not for pneumococcal pneumonia. Diagnoses: Sleep Apnea History of Emphysema Hypertension History of Heart Attack / Stroke. Arthritis Surgical: - Hysterectomy Social History Not a current smoker. Current diet: No recent change in diet. Caffeine use: No caffeine use. Tobacco use: Tobacco non-user. Alcohol: Not using alcohol. Drug Use: Not using drugs. Habits: Not exercising regularly. Work: Retired from work. Allergies - No Known Allergies Family History Cancer No significant family history [...] allergic reaction. Physical Findings - Vitals taken 08/11/2024 03:00 pm MCG Height 64 in PHYSICAL EXAM: CONSTITUTIONAL: Well developed, well groomed, [...] Normal gait without assistive devices. Station normal. Left WRIST/HAND: Able to make a composite fist Able to flex and extend all fingers Hand is warm and well perfused Sensation intact to light touch distally in all nerve distributions Wrist range of motion not tested due to known fracture. She has tenderness of the distal radius. Skin is intact. Tests Three-view x-rays of the left wrist demonstrate a mildly displaced intra- articular distal radius fracture in extension. Assessment - Overweight Counseling/Education - Tobacco non-user - Use of tobacco assessment performed - Lose weight Plan - Patient screened for future fall risk: documentation of any fall with injury in past year I had a long talk with the patient about her distal radius fracture. She has an intra-articular distal radius fracture that is short and slightly extended. We talked about operative versus nonoperative treatment options. These were discussed in detail. I did explain that it is possible to treat this in a cast given her current alignment. I explained that cast immobilization would likely be at least 6 weeks and that she may have some displacement as subsidence of her fracture inside of that time period. I explained the risks and benefits of nonoperative treatment versus surgery in detail. With regard to surgery the major risks, to include but not limited to bleeding, infection, nerve and blood vessel injury, tendon injury, residual pain, numbness, stiffness, blood clots and risks related to anesthesia including were discussed. The patient understands the risk of surgery to include but are not limited to infection, possible nerve damage, tendon or vessel injury, scar sensitivity and anesthesia. The patient understands the need for postoperative rehabilitation and therapy. We discussed the possibility of surgical procedure failure, persistent pain, loss of motion, persistent stiffness, persistent weakness, and the possible need for a revision surgery. The patient's questions were answered fully, no guarantees were provided. The patient has previously underwent open reduction and internal fixation of her contralateral right-sided distal radius fracture a couple of years ago by 1 of my partners. She is well acquainted with the postoperative recovery and stated that she would prefer surgical fixation. At the completion of this conversation, the patient elected to proceed with surgery. They will be scheduled at their earliest convenience. Notes This dictation was done with voice recognition software and may contain errors and omissions. Care Team - Anita Ocampo, SHIRT PRESSER
--- OUTSIDE RECORDS SUMMARY | 2025-01-27 18:23 | XMS_ITS | Clinical Summary ---
Author Organization [facility] , [facility] Address [address] [place] [address] Phone Care Team Providers Care Marble Carver Name Role Phone Terrence LENZ Anita Primary Care Provider [phone] Shilpa BUTT, Hakan Akins Unavailable [phone] Reason for Visit and Chief Complaint The Chief Complaint is: L Wrist pain Problems Includes: Problems addressed during this encounter and other active Problems Current Visit Onset Date Resolved Date Provider Conditio n Status Joint Pain Wrist Left 09/29/2024 Eagle Porter PA-C Active Last Documented On 5 3:20PM ; [facility], [facility] Past Visits Onset Date Resolved Date Provider Condition Status Joint Pain Wrist Right 08/11/2024 Darin Doherty MD Active Last Documented On 5 3:00PM ; [facility], [facility] Joint Pain in Both Knees 09/06/2023 Lul hope PA-C Active Last Documented On 4 1:25PM ; [facility], [facility] Osteoporosis Postmenopausal 07/12/2022 Annemarie myers PA-C Active Last Documented On 3 9:28AM ; [facility], [facility] Joint Pain Shoulder Right 04/25/2022 Dana Martínez PA-C Active Last Documented On 3 9:53AM ; [facility], [facility] Joint Pain Fingers of Right Hand 02/14/2022 Radha Smith PA-C Active Last Documented On 2 2:02PM ; [facility], [facility] Plan of Treatment Patient screened for future fall risk: documentation of any fall with injury in past year. - Last Documented On 09/29/2024 3:49PM ; [facility], [facility] Fall Risk Assessment: This patient has been [...] therapy has been discussed with the patient. - Last Documented On 09/29/2024 3:49PM ; [facility], [facility] Instructions to patient Lose weight Last Documented On 3:20PM ; [facility], [facility] Assessments Includes: Assessments from this encounter Findings - Overweight - Last Documented On 09/29/2024 3:49PM ; [facility] Instructions Includes: Instructions from this encounter Instructions to patient Lose weight Last Documented On 3:20PM ; [facility] Medical Equipment - Implanted Devices Includes: Current Devices No Medical Equipment Recorded Medications Includes: Medications discussed during this encounter and other current Medications Current Medications (continue as prescribed) Famotidine 40 MG Oral Tablet 08/11/2024 Provider: Nicky Metcalf APRN Diagnosis: Last Documented On 5 8:48AM By Maegan [facility], [facility] Atorvastatin Calcium 40 MG Oral Tablet 08/02/2024 Pr ovider: Nicky Metcalf APRN Diagnosis: Last Documented On 5 8:48AM By [facility] Betamethasone Dipropionate 0 .05% External Ointment 04/25/2024 Provider: Anita Ocampo APRN Diagnosis: Last Documented On 5 8:48AM By [facility] Methocarbamol 500 MG Oral Tablet 04/22/2022 Provider : Diagnosis: Last Documented On 3 9:53AM By [facility] Ondansetron 4 MG Oral Tablet Disintegrating 04/22/2022 Provider: Diagnosis: Last Documented On 3 9:53AM By Tabby Cortez ; [facility] Albuterol Sulfate Powder 02/14/2022 Provider: Diagnosis: Last Documented On 2 2:16PM By Leanna Teran ; [facility], [facility] Omeprazole 20 MG Oral Capsule Delayed Release 02/15/20 Provider: Diagnosis: Last Documented On 2 2:16PM By Leanna Teran ; [facility], [facility] Metoprolol Tartrate 25 MG Oral Tablet 02/11/2022 Pro vider: Diagnosis: Last Documented On 2 2:16PM By Leanna Teran ; [facility], [facility] Valsartan 40 MG Oral Tablet 02/08/2022 Provider: Diagnosis: Last Documented On 2 2:16PM By Leanna Teran ; [facility], [facility] buPROPion HCl ER (Smoking De t) 150 MG Oral Tablet Extended Release 12 Hour 02/04/2022 Provider: Diagnosis: Last Documented On 2 2:16PM By Leanna Teran ; [facility], [facility] amLODIPine Besylate 10 MG Oral Tablet 02/04/2022 Pro vider: Diagnosis: Last Documented On 2 2:16PM By Leanna Teran ; [facility], [facility] Primidone 50 MG Oral Tablet 01/26/2022 Provider: Diagnosis: Last Documented On 2 2:16PM By Leanna Teran ; [facility], [facility] Sertraline HCl 50 MG Oral Tablet 01/23/2022 Provider : Diagnosis: Last Documented On 2 2:16PM By Leanna Teran ; [facility], [facility] Past Medications on file HYDROcodone-Acetaminophen 5- 325 MG Oral Tablet 08/14/2024 - 08/26/2024 Provider: Darin Doherty MD Diagnosis: [id number] Last Documented On 5 8:49AM By Darin Doherty ; [facility], [facility] Vitamin C 500 MG Oral Capsule 08/14/2024 - 09/13/2024 Provider: Darin Doherty MD Diagnosis: 1 TABLET once a day Last Documented On 5 8:49AM By Darin Doherty ; [facility], [facility] traMADol HCl 50 MG Oral Tablet 04/25/2022 - 05/02/2022 Provider: Luis mckee MD Diagnosis: 1 by mouth q 6 hours prn pain Last Documented On 3 10:12AM By Luis Guidry ; [facility], [facility] Naproxen 500 MG Oral Tablet 02/17/2022 - 03/19/2022 Pr ovider: Pablo Amaro MD Diagnosis: take one tablet twice a day prn following surger y Last Documented On 2 2:08PM By Mayi Vinson ; [facility], [facility] Vitamin C 1000 MG Oral Tablet 02/17/2022 - 04/18/2022 Provider: Pablo nielson MD Diagnosis: take one tablet, once a day post surgery Last Documented On 2 2:08PM By Mayi Vinson ; [facility] HYDROcodone-Acetaminophen 7. 5-325 MG Oral Tablet 02/17/2022 - 02/20/2022 Provider: Pablo Amaro MD Diagnosis: 1 tab every 6 hrs prn pain Last Documented On 2 3:25PM By Dr. Amaro ; [facility], [facility] Medications Administered Includes: Administered Medications from this encounter No Administered Medications Recorded Vital Signs Includes: Vital Signs from this encounter Vital Name 09/29/2024 03:21P Height (in) 64 Weight (lb) 240 Body Mass Index 41.2 Body Surface Area 2.1 Note: jm Last Documented: On 09/29/2024 3:21PM ; [facility] Results Includes: Results discussed during this [...] happy with the surgical result thus far. Social History Description Last Updated No caffeine use 07/11/2022 Last Documented On 5 3:20PM ; [facility], [facility] No recent change in diet 07/11/2022 Last Documented On 5 3:20PM ; [facility], [facility] Not a current smoker. 07/11/2022 Last Documented On 5 3:20PM ; [facility], [facility] Not exercising regularly 07/11/2022 Last Documented On 5 3:20PM ; [facility], [facility] Not using alcohol 07/11/2022 Last Documented On 5 3:20PM ; [facility], [facility] Not using drugs 07/11/2022 Last Documented On 5 3:20PM ; [facility], [facility] Tobacco non-user 07/11/2022 Last Documented On 3:20PM ; [facility], [facility] Retired from work 02/14/2022 Last Documented On 3:20PM ; [facility], [facility] Smoking Status Unknown Procedures and Surgical History Includes: Procedures from this encounter Procedures Code Diagnosis Performing Provider Service Location Service Date X-RAY EXAM OF WRIST 3-5 VIEWS (LEFT) 23073 Oth intartic fx low end l rad, subs for clos fx w routn heal Eagle Porter PA-C [facility] 09/29/2024 Last Documented On 5 10:19AM ; [facility], [facility] Surgical History Last Updated History of hysterectomy 07/11/2022 Last Documented On 3:20PM ; [facility], [facility] Medical History Includes: Medical History addressed during this encounter Description Last Updated History of arthritis 07/11/2022 Last Documented On 5 3:20PM ; [facility], [facility] History of Heart Attack 07/11/2022 Last Documented On 5 3:20PM ; [facility], [facility] History of History of Emphysema 07/12/19 Last Documented On 5 3:20PM ; [facility], [facility] History of Hypertension 07/11/2022 Last Documented On 5 3:20PM ; [facility], [facility] History of Sleep Apnea 07/11/2022 Last Documented On 5 3:20PM ; [facility], [facility] Use of CPAP 07/11/2022 Last Documented On 5 3:20PM ; [facility] History of History of Heart Attack / Str ayala 02/14/2022 Last Documented On 5 3:20PM ; [facility] No recent immunization for flu 2 Last Documented On 5 3:20PM ; [facility] No recent immunization for pneumococcal pneumonia 02/14/2022 Last Documented On 5 3:20PM ; [facility] Family History Includes: Family History addressed during this encounter Description Last Updated No significant family history 07/11/2022 Last Documented On 5 3:20PM ; [facility] Family history of cancer 02/14/2022 Last Documented On 5 3:20PM ; [facility] Review of Systems Includes: Review of Systems [...] e Last Documented On 5 3:20PM ; [facility], [facility] Encounters Encounter Provider Location Date Check-In Time Check-Out Time Diagnosis Post Op Eagle Porter PA-C [facility] 5 3:16PM 3:47PM Overweight Insurance Includes: Active Insurance Policies Plan Name Member ID Group # Subscriber Relationship Effect lizzy Dates 1 - [employer] Medicare [id number] Luz Melgar Self 3 - Unknown Clinical Notes Includes: Clinical Notes from this encounter * Progress note Date Encounter Last Documented by 09/29/2024 Post Op Last documented on 09/29/2024; 3:49 PM, Eagle Porter PA-C; [facility], [facility] Active Problems & Conditions - Joint [...]
--- OUTSIDE RECORDS SUMMARY | 2025-01-27 18:24 | XMS_ITS | Clinical Summary ---
Author Organization [facility] , [facility] Address [address] [place] [address] Phone Care Team Providers Care Film Flat Inspector Name Role Phone Ocampo YARN CONDITIONER Anita Primary Care Provider [phone] Shilpa BUTT, Hakan Akins Unavailable + [phone] Reason for Visit and Chief Complaint Follow Up Problems Includes: Problems addressed during this encounter and other active Problems All Visits Onset Date Resolved Date Provider Condition S tatus Joint Pain Wrist Left 09/29/2024 Eagle Porter PA-C Active Last Documented On 5 3:20PM ; [facility], [facility] Joint Pain Wrist Right 08/11/2024 Darin Doherty MD Active Last Documented On 5 3:00PM ; [facility], [facility] Joint Pain in Both Knees 09/06/2023 Lul hope PA-C Active Last Documented On 4 1:25PM ; [facility], [facility] Osteoporosis Postmenopausal 07/12/2022 Annemarie myers PA-C Active Last Documented On 3 9:28AM ; [facility], [facility] Joint Pain Shoulder Right 04/25/2022 Cheslee Am os Mauricio PA-C Active Last Documented On 3 9:53AM ; [facility], [facility] Joint Pain Fingers of Right Hand 02/14/2022 Radha Smith PA-C Active Last Documented On 2 2:02PM ; [facility], [facility] Plan of Treatment No Plan of Treatment [...] By Maegan Erickson ; [facility], [facility] Atorvastatin Calcium 40 MG Oral Tablet 08/02/2024 Pr ovider: Nicky Metcalf APRN Diagnosis: Last Documented On 5 8:48AM By Maegan Erickson ; [facility], [facility] Betamethasone Dipropionate 0 .05% External Ointment 04/25/2024 Provider: Anita Ocampo APRN Diagnosis: Last Documented On 5 8:48AM By Maegan Erickson ; [facility], [facility] Methocarbamol 500 MG Oral Tablet 04/22/2022 Provider : Diagnosis: Last Documented On 3 9:53AM By Tabby Cortez ; [facility], [facility] Ondansetron 4 MG Oral Tablet Disintegrating 04/22/2022 Provider: Diagnosis: Last Documented On 3 9:53AM By Tabby Cortez ; [facility], [facility] Albuterol Sulfate Powder 02/14/2022 Provider: Diagnosis: Last Documented On 2 2:16PM By Leanna Teran ; [facility], [facility] Omeprazole 20 MG Oral Capsule Delayed Release 02/15/20 Provider: Diagnosis: Last Documented On 2 2:16PM By Leanna Teran ; [facility], [facility] Metoprolol Tartrate 25 MG Oral Tablet 02/11/2022 Pro vider: Diagnosis: Last Documented On 2 2:16PM By Leanna Teran ; [facility], [facility] Valsartan 40 MG Oral Tablet 02/08/2022 Provider: Diagnosis: Last Documented On 2 2:16PM By Leanna Teran ; [facility], [facility] buPROPion HCl ER (Smoking De t) 150 MG Oral Tablet Extended Release 12 Hour 02/04/2022 Provider: Diagnosis: Last Documented On 2 2:16PM By Leanna Teran ; [facility], [facility] amLODIPine Besylate 10 MG Oral Tablet 02/04/2022 Pro vider: Diagnosis: Last Documented On 2 2:16PM By Leanna Teran ; [facility] Primidone 50 MG Oral Tablet 01/26/2022 Provider: Diagnosis: Last Documented On 2 2:16PM By Leanna Teran ; [facility] Sertraline HCl 50 MG Oral Tablet 01/23/2022 Provider : Diagnosis: Last Documented On 2 2:16PM By Leanna Teran ; [facility] Medications Administered Includes: Administered Medications from [...] Diagnosis Performing Provider Service Location Service Date OT Eval - Mod Complexity (Occupational therapy) 97614 Oth intartic fracture of lower end of left radius, lawrence Alejandra OT [facility] 08/28/2024 Last Documented On 5 3:51PM ; [facility] THERAPEUTIC EXERCISES (Occupational therapy) 61493 Oth intartic fracture of lower end of left radius, lawrence Alejandra OT [facility] 08/28/2024 Last Documented On 5 3:51PM ; [facility] Medical History Includes: Medical History addressed [...] e Last Documented On 5 3:20PM ; [facility] Encounters Encounter Provider Location Date Check-In Time Check-Out Time Diagnosis Follow Up [facility] 08/28/2024 8:30AM 11:59PM Insurance Includes: Active Insurance Policies Plan Name Member ID Group # Subscriber Relationship Effect lizzy Dates 1 - BS ([place]) Medicare [id number] Luzyulisa Melgar Self 3 - Unknown Clinical Notes Includes: Clinical Notes from this encounter No Clinical Notes Recorded
--- OUTSIDE RECORDS SUMMARY | 2025-01-27 18:24 | XMS_ITS | Clinical Summary ---
Author Organization [facility] Address [address] [place] [address] Phone Care Team Providers Care Manufacturing Assembler Name Role Phone Unavailable Primary Care Provider Unavailabl e Social History Tobacco Use Types Packs/Day Years Used Date Smoking Tobacco: Never Assessed Comments Unknown Sex and Gender Information Value Date Recorded Sex Assigned at Not on file Legal Sex Female 1:54 PM EST Gender Identity Not on file Sexual Orientation Not on file Plan of Treatment Health Maintenance Due Date Last Done Comments Annual Wellness Exam 1953 Hepatitis C Screening 1968 DTaP/TDaP/Td (1 - Tdap) 1969 Cologuard 1995 Colon Cancer Screening 1995 Colonoscopy 1995 FIT 1995 Sigmoidoscopy 1995 Virtual Colonography 1995 Pneumococcal Vaccine 50+ (1 of 1 - PCV) 2000 Zoster (1 of 2) 2000 Bone Density Screening 2015 COVID-19 Vaccine (2024-2 6 season) 2024 Influenza Vaccine (#1) 2024 Hepatitis B Vaccine Aged Out No longe r eligible based on patient's age to complete this topic Meningococcal B Vaccine Aged Out No l onger eligible based on patient's age to complete this topic
--- OUTSIDE RECORDS SUMMARY | 2025-01-27 18:24 | XMS_ITS | Clinical Summary ---
Author Organization [facility] , [facility] Address [address] [place] [address] Phone Care Team Providers Care Green Tire Inspector Name Role Phone Ocampo YOANNA Anita Primary Care Provider [phone] Shilpa BUTT, Hakan Akins Unavailable [phone] Reason for Visit and Chief Complaint [facility] Problems Includes: Problems addressed during this encounter and other active Problems All Visits Onset Date Resolved Date Provider Condition S tatus Joint Pain Wrist Left 09/29/2024 Eagle Porter PA-C Active Last Documented On 5 3:20PM ; [facility], [facility] Joint Pain Wrist Right 08/11/2024 Darin Doherty MD Active Last Documented On 5 3:00PM ; [facility], [facility] Joint Pain in Both Knees 09/06/2023 Lul hope PA-C Active Last Documented On 4 1:25PM ; [facility], [facility] Osteoporosis Postmenopausal 07/12/2022 Annemarie myers PA-C Active Last Documented On 3 9:28AM ; [facility], [facility] Joint Pain Shoulder Right 04/25/2022 Cheslee Am os Mauricio PA-C Active Last Documented On 3 9:53AM ; [facility], [facility] Joint Pain Fingers of Right Hand 02/14/2022 Radha Smith PA-C Active Last Documented On 2 2:02PM ; [facility], [facility] Plan of Treatment No Plan of Treatment [...] On 5 8:16AM By Maegan Erickson ; [facility] New / Renewed during this visit Darin Doherty MD on 08/14/2024 HYDROcodone-Acetaminophen 5- 325 MG Oral Tablet Provider: Darin Doherty MD 12 day supply: 42 tablet, 0 refills Diagnosis: [id number] [id number] [address], [address] - Last Documented On 5 8:49AM By Darin Doherty ; [facility] Vitamin C 500 MG Oral Capsule Provider: Darin Doherty MD 30 day supply: 30 capsule, 0 refills Diagnosis: 1 TABLET once a day Pharmacy: [facility] #[id number] - [address], [id number] - Last Documented On 5 8:49AM By Darin Doherty ; [facility] Current Medications (continue as prescribed) Famotidine 40 MG Oral Tablet 08/11/2024 Provider: Nicky Metcalf APRN Diagnosis: Last Documented On 5 8:48AM By Maegan Erickson ; [facility] Atorvastatin Calcium 40 MG Oral Tablet 08/02/2024 Pr ovider: Nicky Metcalf CIRCUS TRAIN SUPERVISOR Diagnosis: Last Documented On 5 8:48AM By Maegan Erickson ; [facility], [facility] Betamethasone Dipropionate 0 .05% External Ointment 04/25/2024 Provider: Anita Ocampo CIRCUS TRAIN SUPERVISOR Diagnosis: Last Documented On 5 8:48AM By Maegan Erickson ; [facility] Methocarbamol 500 MG Oral Tablet 04/22/2022 Provider : Diagnosis: Last Documented On 3 9:53AM By Tabby Cortez ; [facility], [facility] Ondansetron 4 MG Oral Tablet Disintegrating 04/22/2022 Provider: Diagnosis: Last Documented On 3 9:53AM By Tabby Cortez ; [facility], [facility] Albuterol Sulfate Powder 02/14/2022 Provider: Diagnosis: Last Documented On 2 2:16PM By Leanna Teran ; [facility], [facility] Omeprazole 20 MG Oral Capsule Delayed Release 02/15/20 Provider: Diagnosis: Last Documented On 2 2:16PM By Leanna Teran ; [facility], [facility] Metoprolol Tartrate 25 MG Oral Tablet 02/11/2022 Pro vider: Diagnosis: Last Documented On 2 2:16PM By Leanna Teran ; [facility], [facility] Valsartan 40 MG Oral Tablet 02/08/2022 Provider: Diagnosis: Last Documented On 2 2:16PM By Leanna Teran ; [facility], [facility] buPROPion HCl ER (Smoking De t) 150 MG Oral Tablet Extended Release 12 Hour 02/04/2022 Provider: Diagnosis: Last Documented On 2 2:16PM By Leanna Teran ; [facility], [facility] amLODIPine Besylate 10 MG Oral Tablet 02/04/2022 Pro vider: Diagnosis: Last Documented On 2 2:16PM By Leanna Teran ; [facility], [facility] Primidone 50 MG Oral Tablet 01/26/2022 Provider: Diagnosis: Last Documented On 2 2:16PM By Leanna Teran ; [facility], [facility] Sertraline HCl 50 MG Oral Tablet 01/23/2022 Provider : Diagnosis: Last Documented On 2 2:16PM By Leanna Teran ; [facility], [facility] Medications Administered Includes: Administered Medications from this encounter No Administered Medications Recorded Results Includes: Results discussed during this encounter No Results Recorded For Specified Dates History of Present Illness Includes: History of Present Illness from this encounter No History of Present Illness Recorded Social History No Social History Recorded - Smoking Status Unknown Medical History Includes: Medical History addressed during [...] e Last Documented On 5 3:20PM ; [facility], [facility] Encounters Encounter Provider Location Date Check-In Time Check-Out Time Diagnosis [facility] Darin Doherty MD 5 8:31AM 11:59PM Insurance Includes: Active Insurance Policies Plan Name Member ID Group # Subscriber Relationship Effect lizzy Dates 1 - [employer] ([place]) Medicare [id number] Luz Castañeda 3 - Unknown Clinical Notes Includes: Clinical Notes from this encounter No Clinical Notes Recorded
--- OUTSIDE RECORDS SUMMARY | 2025-01-27 18:24 | XMS_ITS ---
Care Plan - [facility], [facility] Created on: January 27, 2025 Luz Melgar : 1950 Sex: Female Author Organization [facility], [facility] Address [address] [place] [address] Phone Care Team Providers Care Real Estate Clerk Name Role Phone Anita Ocampo APRN Primary Care Provider [phone] Shilpa BUTT, Hakan Akins Unavailable [phone]
--- NOTE | 2025-01-27 18:47 | PC.NURSE ---
Patient offered ordered tylenol, family and pt report that pt took 1,000 mg tylenol at 4:45. FRANSISCO Lin aware.
[2025-01-27 18:52] LABS: Hematocrit 33.1 % (37.0-47.0); Hemoglobin 10.6 g/dL (12.2-16.2); Immature Granulocytes % 0.6 %; Mean Corpuscular HGB Conc 32.0 g/dL (31.8-35.4); Mean Corpuscular Hemoglobin 31.1 pg (27.0-31.2); Mean Corpuscular Volume 97.1 fl (81-99); Nucleated Red Blood Cells % 0 %; Platelet Count 132 K/mm3 (142-424); Red Blood Count 3.41 M/mm3 (4.20-5.40); Red Cell Distribution Width-SD 47.8 fL; White Blood Count 5.0 K/mm3 (4.8-10.8)
[2025-01-27 19:05] LABS: Alanine Aminotransferase 17 U/L (12-78); Albumin Level 4.1 g/dl (3.5-5.0); Albumin/Globulin Ratio 1.6 (1.1-1.8); Alkaline Phosphatase 125 U/L (38-126); Anion Gap 12.6 mEq/L (5-15); Aspartate Amino Transferase 25 U/L (14-36); Bilirubin,Total 0.6 mg/dl (0.2-1.3); Blood Urea Nitrogen 23 mg/dl (7-17); Calcium 8.8 mg/dl (8.4-10.2); Carbon Dioxide 26 mmol/L (22.0-30.0); Chloride 106 mmol/L (98-107); Creatine Kinase 53 U/L (30-135); Creatinine Clearance Estimated 58 mL/min (50-200); Creatinine,Serum 1.40 mg/dl (0.52-1.04); Estimated Glomerular Filt Rate 37 ml/min (>60); GFR (African American) 44 ML/MIN (>60); Globulin 2.6 g/dL (1.3-3.2); Glucose 112 mg/dl (74-100); Potassium 4.6 mmoL/L (3.5-5.1); Sodium 140 mmol/L (136-145); Total Protein,Serum 6.7 g/dl (6.3-8.2)
[2025-01-27] MEDS: ONDANSETRON 4MG/2ML VIAL 4 MG IV (19:16)
[2025-01-27] MEDS: MORPHINE 2MG/ML SYRINGE 2 MG IV (19:17)
[2025-01-27] MEDS: APAP/HYDROCODONE 325MG/7.5MG TAB 1 TAB PO (21:09)
== END 2025-01-27 21:31 | disposition home or self-care (01) ==
PROVIDERS: Physician Assistant; Emergency Provider Emergency Medicine
DX: S42.032A Displaced fracture of lateral end of left clavicle, initial encounter for closed fracture (principal); M79.602 Pain in left arm; R07.81 Pleurodynia; M25.512 Pain in left shoulder; W18.39XA Other fall on same level, initial encounter
CPT/HCPCS: 70450; 71045; 71250; 72125; 73030; 73060; 73070; 73090; 73110; 80053; 82550; 85025; 93005; 96374; 96375; 99285; J2270; J2405